=== PATIENT | female | born 2000 ===

== ENCOUNTER 2023-10-22 00:37 | Emergency (ER) | payer SELFPAY ==
--- OUTSIDE RECORDS SUMMARY | 2023-10-22 00:46 | XMS REPORT | Continuity of Care Document ---
:2000 Author Organization [facility] t Address [address] [place] [address] [place] [id number] Care Team Providers Name Role Phone Dionicio Alonzo Primary Care Physician Unavailable Татьяна Brumfield Attending Clinician [phone] Doctor Unassigned, [place] Attending Clinician Unavailable ANGEL LAMB Attending Clinician Unavailable Angel Scott Attending Clinician Nurse, [facility] Attending Clinician Unavailable Unknown, Attending Attending Clinician Unavailable Dick Diamond Attending Clinician DICK SIDHU Attending Clinician Unavailable Monica Willett Attending Clinician MONICA KRISHNAN Attending Clinician Unavailable Dionicio Alonzo Attending Clinician CHARU SERVIN Attending Clinician Unavailable Gary Leblanc Attending Clinician Charu Butler Attending Clinician DIONICIO CANO Attending Clinician Unavailable Lab, [facility] Attending Clinician Unavailable ТАТЬЯНА LEDESMA Attending Clinician Unavailable Pcp, Patient Does Not Have A Attending Clinician [phone] Haroon POWERS, Meredith Attending Clinician Wilbert Kapoor DO Attending Clinician Yair JACKSON, Karolina Gonzalez Attending Clinician Nelson JACKSON, Braydon Dailey Attending Clinician Rishi JACKSON, Dk Attending Clinician 3, [facility] Usg Room Attending Clinician Unavailable Jennifer Hayes MD Attending Clinician Agnes Lord MD Attending Clinician Gary Garcia MD Attending Clinician GARY GARCIA Attending Clinician Unavailable 1, [facility] Room Attending Clinician Unavailable Lorie Fay MD Attending Clinician Ultrasound, [facility] Attending Clinician Unavailable Chemo Cabrera MD, Marie Attending Clinician [phone] GARY GARCIA Admitting Clinician Unavailable DK AGUAYO Admitting Clinician Unavailable JENNIFER HAYES Admitting Clinician Unavailable ANGEL LAMB Admitting Clinician Unavailable Rishi JACKSON, Dk Admitting Clinician Braydon Damon MD Admitting Clinician Gary Garcia MD Admitting Clinician Payers Payer Name Policy Type Policy Number Effective Date Expiration Date Critical access hospital [id number] 2020 CHOICE MEDICAID 00:00:00 MEDICAID OF [place] [id number] 2020 00:00:00 MEDICAID PENDING PENDING 2020 00:00:00 Problems Condition Condition Condition Status Onset Resolution Last Treating Co mments Source Name Details Category Date Date Treatment Clinician Date Breast Breast Disease Active Univers feeding feeding 4-12 ity of status of status of 00:00: Elise toscano mother mother 00 Medical Branch Need for Need for Disease Active Unive rs HPV HPV 4-12 ity of vaccin[place] Hx of Hx of Disease Active Univers 4-02 ity of section section 00:00: [place] 00 Medical Branch Well woman Well woman Disease Active U nivers exam exam 3-22 ity of 00:00: [place] [facility] Disease Active U nivers depression depression 3-22 it y of 00:00: [place] 00 Medical Branch Anemia of Anemia of Disease Active Uni vers mother in mother in 3-22 ity of , , [place] 00 Me dical condition condition Bran ch 29 weeks 29 weeks Disease Active Unive rs gestation gestation 2-27 ity of of of 00:00: [place] 00 [facility] Vaginal Vaginal Disease Active Univers bleeding bleeding 2-23 ity of in in 00:00: [place] , , 00 Me dical third third Branch trimester trimester Labor and Labor and Disease Active Uni vers delivery, delivery, 2-12 ity of indication [place] 00:[place] care for care 00 [facility] l Branch Labor and Labor and Disease Active Uni vers delivery, delivery, 2-12 ity of indication [place] 00:[place] care 00 [facility] 26 weeks 26 weeks Disease Active Unive rs gestation gestation 2-11 ity of of of 00:00: [place] 00 [facility] Lab test Lab test Disease Active Unive rs positive positive 2-11 ity of for for 00:00: [place] detection detection 00 [facility] COVID-19 COVID-19 virus virus 28 weeks 28 weeks Disease Active Unive rs gestation gestation 2-11 ity of of of 00:00: [place] 00 [facility] Low-lying Low-lying Disease Active Uni vers placenta placenta 2-08 ity of 00:00: [place] 00 Medical Branch Overweight Overweight Disease Active U nivers (BMI (BMI 2-08 ity of 25.0-29.9) 25.0-29.9) 00:00: [place] 00 [place] Vaginal Vaginal Disease Active Univers bleeding bleeding 1-28 ity of 00:00: [place] 00 Medical Branch Nausea and Nausea and Disease Active 2020-1 U nivers vomiting vomiting 0-19 ity of during during 00:00: [place] 00 [facility] prior to prior to Branch 22 weeks 22 weeks gestation gestation Rh Rh Disease Active 2020-0 Overview: Univer s negative negative 08-16 Needs ity of state in state in 00:00: [facility] at [place] as antepartum antepartum 00 28wks and Medical period period PP Branch Maternal Maternal Disease Active 2020-0 Overview: Un americo varicella, varicella, 08-16 Address i ty of non-immune non-immune 00:00[place] [facility] Rubella Rubella Disease Active 2020-0 Overview: Univ ers non-immune non-immune 08-16 Address i ty of status, status, 00:00: in [place] antepartum antepartum 00 [facility] Supervisio Supervisio Disease Active 2020-0 U nivers n of high n of high 08-15 ity of risk risk 00:00: [place] 00 [facility] in second in second Bran ch trimester trimester Primigravi Primigravi Disease Active 2020-0 U nivers da in da in 08-15 ity of second second 00:00: [place] trimester trimester 00 [facility] Branch Vaginal Vaginal Disease Active 2020-0 Univers discharge discharge 9-21 ity of during during 00:00: [place] 00 [facility] in first in first Branch trimester trimester Yeast Yeast Disease Active 2020-0 Univers infection infection 9- ity of 00:00: [place] 00 Medical Branch History of History of Disease Active 2020-0 U nivers anxiety anxiety 9-21 ity of 00:00: [place] 00 Medical Branch History of History of Disease Active 2020-0 U nivers depression depression - it y of 00:00: [place] 00 Medical Branch Screening Screening Disease Active 2020-0 Uni vers for viral for viral - ity of disease disease 00:00: [place] [address] Medical Branch Allergies, Adverse Reactions, Alerts Allergy Allergy Status Severity Reaction(s) Onset Inactive Treating Comm ents Source Name Type Date Date Clinician SULFATE DRUG Active Swelling 2020-0 Univers ION INGREDI - ity of 00:00: [place] 00 Medical Branch Sulfate Propensi Active Swelling 2020-0 Swelling Uni vers Ion ty to 08-15 of tongue ity of adverse 00:00: [place] reaction 00 Medical Branch NO KNOWN Drug Active Univers ALLERGIE Class ity of S [facility] Social History Social Habit Start Date Stop Date Quantity Comments Source ASSERTION 2020-07-16 University of 00:00:00 [facility] Sexual orientation Univer sity of [facility] Exposure to 2023-03-22 2023-04-01 Not sure University SARS-CoV-2 (event) 00:00:00 16:15:00 [facility] Tobacco use and 2023-04-01 2023-04-01 Smokeless Universit y of exposure 00:00:00 00:00:00 tobacco non-user [facility] dical [place] Alcohol intake 2023-04-01 2023-04-01 Ex-drinker [facility] 00:00:00 00:00:00 (finding) [facility] Tobacco Comment 2023-04-01 2023-04-01 vaping Universit y of 00:00:00 00:00:00 [facility] History of Social 2021-01-21 2021-01-21 Univers ity of function 00:00:00 00:00:00 [place] [facility] History SDOH 2021-01-21 2021-01-21 5 University o f Financial 00:00:00 00:00:00 [place] [facility] History SDOH Food 2021-01-21 2021-01-21 1 Univers ity of Worry 00:00:00 00:00:00 [place] [facility] History SDOH Food 2021-01-21 2021-01-21 1 Univers ity of Scarcity 00:00:00 00:00:00 [place] [facility] History SDOH 2021-01-21 2021-01-21 2 University o f Transport Med 00:00:00 00:00:00 [place] Medic al Branch History SDOH 2021-01-21 2021-01-21 2 University o f Transport Non-Med 00:00:00 00:00:00 [facility] edical Branch History of tobacco 2020-07-25 Cigarette Smoker University of use 00:00:00 [facility] Sex Assigned At [birth year] Universit y of 00:00:00 00:00:00 [facility] Smoking Status Start Date Stop Date Source Unknown if ever smoked Universit y of [facility] Ex-smoker 2023-04-01 00:00:00 2023-04-01 00:00:00 Universi ty of [place] [facility] Medications Ordered Filled Start Stop Current Ordering Indication Dosage Frequency Signature Comments Components Source Medication Medication Date Date Medication? Clinician (SIG) Name Name iopamidol 2022- No [id number] 50mL 50 mL, U nivers (ISOVUE 04-0108 Intravenou ity o f 370-500 mL) 23:30: 22:37 s, ONCE, 1 [place] injection 00 :00 dose, On Medica l 50 mL [facility] 04/01/23 Branch at 1830, Routine NaCl 0.9% 2022- No 1000mL at 999 Uni vers (NS) bolus 04-01 mL/hr, ity of infusion 22:30: 00:54 1,000 mL, [place] 1,000 mL 00 :00 IV Medical Infusion, Branch ONCE, 1 dose, On [facility] 04/01/23 at 1730, JO dexamethaso 2022- No 10mg 10 mg, Uni vers ne sod phos 01-07 Intramuscu i ty of PF 21:45: 21:42 lar, ONCE, [place] injection 00 :00 1 dose, On Medi ruben 10 mg [facility] Branch 01/07/23 at 1545, 1 mL ketorolac 2022- No 30mg 30 mg, Unive rs (TORADOL) 01-07 Intramuscu ity of injection 21:45: 21:42 lar, ONCE, [place] 30 mg 00 :00 1 dose, On Medical [facility] 01/07/23 at 1545, Routine methocarbam 2022- No 1000mg 1,000 mg, Univers oL 01-07 Oral, ity of (ROBAXIN) 21:00: 21:42 ONCE, [place] tablet [place] :[place] dose, On Medical 1,000 mg [facility] Branch 01/07/23 at 1500, JO meloxicam 2022-0 2022- No [id number] 15mg Take 1 Univers (MOBIC) 15 01-07 tablet by ity of mg tablet 00:00: 05:59 mouth in [place] 00 :00 the Medical morning Branch for 10 days. meloxicam 2022-0 2022- No [id number] 15mg Take 1 Univers (MOBIC) 15 01-0724 tablet by ity of mg tablet 00:00: 05:59 mouth in [place] 00 :00 the Medical morning Branch for 10 days. methocarbam 2022- No [id number] 750mg Take 1 Univers oL 01-07 tablet by ity of (ROBAXIN-75 00:00: 05:59 mouth 4 [place] 0[place] 750 mg 00 :00 (four) Medical tablet times Branch daily for 7 days. methocarbam 2022-0 2022- No [id number] 750mg Take 1 Univers oL 01-07 tablet by ity of (ROBAXIN-75 00:00: 05:59 mouth 4 [place] 0[place] 750 mg 00 :00 (four) Medical tablet times Branch daily for 7 days. ondansetron 2020-11 Yes [id number] 4mg Take 1 Univers (ZOFRAN 0-25 tablet by ity of ODT) 4 mg 00:00: mouth [place] disintegrat 00 every 8 Medic al ing tablet (eight) Branch hours as needed for Nausea and Vomiting (N/V). ondansetron 2020-11 Yes [id number] 4mg Take 1 Univers (ZOFRAN 0-25 tablet by ity of ODT) 4 mg 00:00: mouth [place] disintegrat 00 every 8 Medic al ing tablet (eight) Branch hours as needed for Nausea and Vomiting (N/V). ondansetron 2020-11 Yes [id number] 4mg Take 1 Univers (ZOFRAN 0-25 tablet by ity of ODT) 4 mg 00:00: mouth [place] disintegrat 00 every 8 Medic al ing tablet (eight) Branch hours as needed for Nausea and Vomiting (N/V). ondansetron 2020-11 Yes [id number] 4mg Take 1 Univers (ZOFRAN 0-25 tablet by ity of ODT) 4 mg 00:00: mouth [place] disintegrat 00 every 8 Medic al ing tablet (eight) Branch hours as needed for Nausea and Vomiting (N/V). ondansetron 2020-11 Yes [id number] 4mg Take 1 Univers (ZOFRAN 0-25 tablet by ity of ODT) 4 mg 00:00: mouth [place] disintegrat 00 every 8 Medic al ing tablet (eight) Branch hours as needed for Nausea and Vomiting (N/V). ondansetron 2020-11 Yes [id number] 4mg Take 1 Univers (ZOFRAN 0-25 tablet by ity of ODT) 4 mg 00:00: mouth [place] disintegrat 00 every 8 Medic al ing tablet (eight) Branch hours as needed for Nausea and Vomiting (N/V). ondansetron 2020-11 Yes [id number] 4mg Take 1 Univers (ZOFRAN 0-25 tablet by ity of ODT) 4 mg 00:00: mouth [place] disintegrat 00 every 8 Medic al ing tablet (eight) Branch hours as needed for Nausea and Vomiting (N/V). ondansetron 2020-11 Yes [id number] 4mg Take 1 Univers (ZOFRAN 0-25 tablet by ity of ODT) 4 mg 00:00: mouth [place] disintegrat 00 every 8 Medic al ing tablet (eight) Branch hours as needed for Nausea and Vomiting (N/V). ondansetron 2020-11 Yes [id number] 4mg Take 1 Univers (ZOFRAN 0-25 tablet by ity of ODT) 4 mg 00:00: mouth [place] disintegrat 00 every 8 Medic al ing tablet (eight) Branch hours as needed for Nausea and Vomiting (N/V). cefdinir 2020-11- No [id number] 300mg Take 1 U nivers 300 mg 0-25 11-02 capsule by ity of capsule 00:00: 04:59 mouth 2 [place] 00 :00 (two) Medical times Branch daily for 7 days. phenazopyri 2020-11- No [id number] 200mg Take 1 Univers dine 200 mg 0-25 10-28 tablet by it y of tablet 00:00: 04:59 mouth 3 [place] 00 :00 (three) Medical times Branch daily for 2 days. mirtazapine Yes Univer s 15 mg 5-16 ity of tablet 00:00: [place] Medical [facility] mirtazapine 0 Yes Univer s 15 mg 5-16 ity of tablet 00:00: Medical Branch mirtazapine 0 Yes Univer s 15 mg 5-16 ity of tablet 00:00: Medical Branch mirtazapine 2020-0 Yes Univer s 15 mg 5-16 ity of tablet 00:00: Medical Branch mirtazapine 0 Yes Univer s 15 mg 5-16 ity of tablet 00:00: [place] 00 Medical Branch mirtazapine 2020-0 Yes Univer s 15 mg 5-16 ity of tablet 00:00: [place] 00 Medical Branch mirtazapine 2020-0 Yes Univer s 15 mg 5-16 ity of tablet 00:00: [place] 00 Medical Branch mirtazapine 2020-0 Yes Univer s 15 mg 5-16 ity of tablet 00:00: [place] 00 Medical Branch mirtazapine 2020-0 Yes Univer s 15 mg 5-16 ity of tablet 00:00: [place] 00 Medical Branch mirtazapine 2020-0 Yes Univer s 15 mg 5-16 ity of tablet 00:00: [place] 00 Medical Branch mirtazapine 2020-0 Yes Univer s 15 mg 5-16 ity of tablet 00:00: [place] 00 Medical Branch mirtazapine 2020-0 Yes Univer s 15 mg 5-16 ity of tablet 00:00: [place] 00 Medical Branch mirtazapine 2020-0 Yes Univer s 15 mg 5-16 ity of tablet 00:00: [place] 00 Medical Branch mirtazapine 2020-0 Yes Univer s 15 mg 5-16 ity of tablet 00:00: [place] 00 Medical Branch SERTraline 2020-0 Yes 25mg Take 25 mg U nivers 25 mg 5-11 by mouth ity of tablet 00:00: every [place] [address] morning. Medical Branch SERTraline 2020-0 Yes 25mg Take 25 mg U nivers 25 mg 5-11 by mouth ity of tablet 00:00: every [place] [address] morning. Medical Branch SERTraline 2020-0 Yes 25mg Take 25 mg U nivers 25 mg 5-11 by mouth ity of tablet 00:00: every [place] 00 morning. Medical Branch SERTraline 2020-0 Yes 25mg Take 25 mg U nivers 25 mg 5-11 by mouth ity of tablet 00:00: every [place] 00 morning. Medical Branch SERTraline 2020-0 Yes 25mg Take 25 mg U nivers 25 mg 5-11 by mouth ity of tablet 00:00: every [place] 00 morning. Medical Branch SERTraline 2020-0 Yes 25mg Take 25 mg U nivers 25 mg 5-11 by mouth ity of tablet 00:00: every [place] 00 morning. Medical Branch SERTraline 0 Yes 25mg Take 25 mg U nivers 25 mg 5-11 by mouth ity of tablet 00:00: every [place] 00 morning. Medical Branch SERTraline 0 Yes 25mg Take 25 mg U nivers 25 mg 5-11 by mouth ity of tablet 00:00: every [place] 00 morning. Medical Branch SERTraline 0 Yes 25mg Take 25 mg U nivers 25 mg 5-11 by mouth ity of tablet 00:00: every [place] 00 morning. Medical Branch SERTraline 0 Yes 25mg Take 25 mg U nivers 25 mg 5-11 by mouth ity of tablet 00:00: every [place] 00 morning. Medical Branch SERTraline 0 Yes 25mg Take 25 mg U nivers 25 mg 5-11 by mouth ity of tablet 00:00: every [place] morning. Medical Branch SERTraline Yes 25mg Take 25 mg U nivers 25 mg 5-11 by mouth ity of tablet 00:00: every [place] morning. Medical Branch SERTraline 0 Yes 25mg Take 25 mg U nivers 25 mg 5-11 by mouth ity of tablet 00:00: every [place] 00 morning. Medical Branch SERTraline 0 Yes 25mg Take 25 mg U nivers 25 mg 5-11 by mouth ity of tablet 00:00: every [place] morning. Medical Branch cephALEXin 2020- No [id number] 500mg Take 1 Univers (KEFLEX) 5-05 05-16 capsule by ity of 500 mg 00:00: 04:59 mouth 4 [place] capsule 00 :00 (four) Medical times [place] daily for 10 days. cephALEXin 2020- No [id number] 500mg Take 1 Univers (KEFLEX) 5-05 05-16 capsule by ity of 500 mg 00:00: 04:59 mouth 4 [place] capsule 00 :00 (four) Medical times [place] daily for 10 days. buPROPion Yes [id number] 150mg Take 1 U nivers SR 3-22 tablet by ity of (WELLBUTRIN 00:00: mouth [place] SR) 150 mg 00 daily. Medical SR tablet Branch Yes [id number] 1{packe Take 1 Univers vit 3-22 t} Packet by ity of 33-iron-fol 00:00: mouth [place] ic-dha 00 daily. Medical (SELECT-OB Branch + DHA) 29 mg iron-1 mg -250 mg combo pack buPROPion Yes [id number] 150mg Take 1 U nivers SR 3-22 tablet by ity of (WELLBUTRIN 00:00: mouth [place] SR) 150 mg 00 daily. Medical SR tablet Branch Yes [id number] 1{packe Take 1 Univers vit 3-22 t} Packet by ity of 33-iron-fol 00:00: mouth [place] ic-dha 00 daily. Medical (SELECT-OB Branch + DHA) 29 mg iron-1 mg -250 mg combo pack buPROPion Yes [id number] 150mg Take 1 U nivers SR 3-22 tablet by ity of (WELLBUTRIN 00:00: mouth [place] SR) 150 mg 00 daily. Medical SR tablet Branch Yes [id number] 1{packe Take 1 Univers vit 3-22 t} Packet by ity of 33-iron-fol 00:00: mouth [place] ic-dha 00 daily. Medical (SELECT-OB Branch + DHA) 29 mg iron-1 mg -250 mg combo pack buPROPion Yes [id number] 150mg Take 1 U nivers SR 3-22 tablet by ity of (WELLBUTRIN 00:00: mouth [place] SR) 150 mg 00 daily. Medical SR tablet Branch Yes [id number] 1{packe Take 1 Univers vit 3-22 t} Packet by ity of 33-iron-fol 00:00: mouth [place] ic-dha 00 daily. Medical (SELECT-OB Branch + DHA) 29 mg iron-1 mg -250 mg combo pack buPROPion Yes [id number] 150mg Take 1 U nivers SR 3-22 tablet by ity of (WELLBUTRIN 00:00: mouth [place] SR) 150 mg 00 daily. Medical SR tablet Branch Yes [id number] 1{packe Take 1 Univers vit 3-22 t} Packet by ity of 33-iron-fol 00:00: mouth [place] ic-dha 00 daily. Medical (SELECT-OB Branch + DHA) 29 mg iron-1 mg -250 mg combo pack buPROPion Yes [id number] 150mg Take 1 U nivers SR 3-22 tablet by ity of (WELLBUTRIN 00:00: mouth [place] SR) 150 mg 00 daily. Medical SR tablet Branch Yes [id number] 1{packe Take 1 Univers vit 3-22 t} Packet by ity of 33-iron-fol 00:00: mouth [place] ic-dha 00 daily. Medical (SELECT-OB Branch + DHA) 29 mg iron-1 mg -250 mg combo pack buPROPion Yes [id number] 150mg Take 1 U nivers SR 3-22 tablet by ity of (WELLBUTRIN 00:00: mouth [place] SR) 150 mg 00 daily. Medical SR tablet Branch Yes [id number] 1{packe Take 1 Univers vit 3-22 t} Packet by ity of 33-iron-fol 00:00: mouth [place] ic-dha 00 daily. Medical (SELECT-OB Branch + DHA) 29 mg iron-1 mg -250 mg combo pack buPROPion Yes [id number] 150mg Take 1 U nivers SR 3-22 tablet by ity of (WELLBUTRIN 00:00: mouth [place] SR) 150 mg 00 daily. Medical SR tablet Branch Yes [id number] 1{packe Take 1 Univers vit 3-22 t} Packet by ity of 33-iron-fol 00:00: mouth [place] ic-dha 00 daily. Medical (SELECT-OB Branch + DHA) 29 mg iron-1 mg -250 mg combo pack buPROPion Yes [id number] 150mg Take 1 U nivers SR 3-22 tablet by ity of (WELLBUTRIN 00:00: mouth [place] SR) 150 mg 00 daily. Medical SR tablet Branch Yes [id number] 1{packe Take 1 Univers vit 3-22 t} Packet by ity of 33-iron-fol 00:00: mouth [place] ic-dha 00 daily. Medical (SELECT-OB Branch + DHA) 29 mg iron-1 mg -250 mg combo pack buPROPion Yes [id number] 150mg Take 1 U nivers SR 3-22 tablet by ity of (WELLBUTRIN 00:00: mouth [place] SR) 150 mg 00 daily. Medical SR tablet Branch Yes [id number] 1{packe Take 1 Univers vit 3-22 t} Packet by ity of 33-iron-fol 00:00: mouth [place] ic-dha 00 daily. Medical (SELECT-OB Branch + DHA) 29 mg iron-1 mg -250 mg combo pack buPROPion Yes [id number] 150mg Take 1 U nivers SR 3-22 tablet by ity of (WELLBUTRIN 00:00: mouth [place] SR) 150 mg 00 daily. Medical SR tablet Branch Yes [id number] 1{packe Take 1 Univers vit 3-22 t} Packet by ity of 33-iron-fol 00:00: mouth [place] ic-dha 00 daily. Medical (SELECT-OB Branch + DHA) 29 mg iron-1 mg -250 mg combo pack buPROPion Yes [id number] 150mg Take 1 U nivers SR 3-22 tablet by ity of (WELLBUTRIN 00:00: mouth [place] SR) 150 mg 00 daily. Medical SR tablet Branch Yes [id number] 1{packe Take 1 Univers vit 3-22 t} Packet by ity of 33-iron-fol 00:00: mouth [place] ic-dha 00 daily. Medical (SELECT-OB Branch + DHA) 29 mg iron-1 mg -250 mg combo pack buPROPion Yes [id number] 150mg Take 1 U nivers SR 3-22 tablet by ity of (WELLBUTRIN 00:00: mouth [place] SR) 150 mg 00 daily. Medical SR tablet Branch Yes [id number] 1{packe Take 1 Univers vit 3-22 t} Packet by ity of 33-iron-fol 00:00: mouth [place] ic-dha 00 daily. Medical (SELECT-OB Branch + DHA) 29 mg iron-1 mg -250 mg combo pack buPROPion Yes [id number] 150mg Take 1 U nivers SR 3-22 tablet by ity of (WELLBUTRIN 00:00: mouth [place] SR) 150 mg 00 daily. Medical SR tablet Branch Yes [id number] 1{packe Take 1 Univers vit 3-22 t} Packet by ity of 33-iron-fol 00:00: mouth [place] ic-dha 00 daily. Medical (SELECT-OB Branch + DHA) 29 mg iron-1 mg -250 mg combo pack buPROPion Yes [id number] 150mg Take 1 U nivers SR 3-22 tablet by ity of (WELLBUTRIN 00:00: mouth [place] SR) 150 mg 00 daily. Medical SR tablet Branch Yes [id number] 1{packe Take 1 Univers vit 3-22 t} Packet by ity of 33-iron-fol 00:00: mouth [place] ic-dha 00 daily. Medical (SELECT-OB Branch + DHA) 29 mg iron-1 mg -250 mg combo pack buPROPion Yes [id number] 150mg Take 1 U nivers SR 3-22 tablet by ity of (WELLBUTRIN 00:00: mouth [place] SR) 150 mg 00 daily. Medical SR tablet Branch Yes [id number] 1{packe Take 1 Univers vit 3-22 t} Packet by ity of 33-iron-fol 00:00: mouth [place] ic-dha 00 daily. Medical (SELECT-OB Branch + DHA) 29 mg iron-1 mg -250 mg combo pack buPROPion Yes [id number] 150mg Take 1 U nivers SR 3-22 tablet by ity of (WELLBUTRIN 00:00: mouth [place] SR) 150 mg 00 daily. Medical SR tablet Branch Yes [id number] 1{packe Take 1 Univers vit 3-22 t} Packet by ity of 33-iron-fol 00:00: mouth [place] ic-dha 00 daily. Medical (SELECT-OB Branch + DHA) 29 mg iron-1 mg -250 mg combo pack buPROPion Yes [id number] 150mg Take 1 U nivers SR 3-22 tablet by ity of (WELLBUTRIN 00:00: mouth [place] SR) 150 mg 00 daily. Medical SR tablet Branch Yes [id number] 1{packe Take 1 Univers vit 3-22 t} Packet by ity of 33-iron-fol 00:00: mouth [place] ic-dha 00 daily. Medical (SELECT-OB Branch + DHA) 29 mg iron-1 mg -250 mg combo pack buPROPion Yes [id number] 150mg Take 1 U nivers SR 3-22 tablet by ity of (WELLBUTRIN 00:00: mouth [place] SR) 150 mg 00 daily. Medical SR tablet Branch Yes [id number] 1{packe Take 1 Univers vit 3-22 t} Packet by ity of 33-iron-fol 00:00: mouth [place] ic-dha 00 daily. Medical (SELECT-OB Branch + DHA) 29 mg iron-1 mg -250 mg combo pack buPROPion Yes [id number] 150mg Take 1 U nivers SR 3-22 tablet by ity of (WELLBUTRIN 00:00: mouth [place] SR) 150 mg 00 daily. Medical SR tablet Branch Yes [id number] 1{packe Take 1 Univers vit 3-22 t} Packet by ity of 33-iron-fol 00:00: mouth [place] ic-dha 00 daily. Medical (SELECT-OB Branch + DHA) 29 mg iron-1 mg -250 mg combo pack buPROPion Yes [id number] 150mg Take 1 U nivers SR 3-22 tablet by ity of (WELLBUTRIN 00:00: mouth [place] SR) 150 mg 00 daily. Medical SR tablet Branch Yes [id number] 1{packe Take 1 Univers vit 3-22 t} Packet by ity of 33-iron-fol 00:00: mouth [place] ic-dha 00 daily. Medical (SELECT-OB Branch + DHA) 29 mg iron-1 mg -250 mg combo pack buPROPion Yes [id number] 150mg Take 1 U nivers SR 3-22 tablet by ity of (WELLBUTRIN 00:00: mouth [place] SR) 150 mg 00 daily. Medical SR tablet Branch Yes [id number] 1{packe Take 1 Univers vit 3-22 t} Packet by ity of 33-iron-fol 00:00: mouth [place] ic-dha 00 daily. Medical (SELECT-OB Branch + DHA) 29 mg iron-1 mg -250 mg combo pack buPROPion Yes [id number] 150mg Take 1 U nivers SR 3-22 tablet by ity of (WELLBUTRIN 00:00: mouth [place] SR) 150 mg 00 daily. Medical SR tablet Branch Yes [id number] 1{packe Take 1 Univers vit 3-22 t} Packet by ity of 33-iron-fol 00:00: mouth [place] ic-dha 00 daily. Medical ([facility] + DHA) 29 mg iron-1 mg -250 mg combo pack buPROPion Yes [id number] 150mg Take 1 [facility] n[facility] SR 3-22 tablet by ity of (WELLBUTRIN 00:00: mouth [place] SR) 150 mg 00 daily. Medical SR tablet Branch Yes [id number] 1{packe Take 1 [facility] vit 3-22 t} Packet by ity of 33-iron-fol 00:00: mouth [place] ic-dha 00 daily. Medical ([facility] + DHA) 29 mg iron-1 mg -250 mg combo pack buPROPion Yes [id number] 150mg Take 1 [facility] nivers SR 3-22 tablet by ity of (WELLBUTRIN 00:00: mouth [place] SR) 150 mg 00 daily. Medical SR tablet Branch Yes [id number] 1{packe Take 1 [facility] vit 3-22 t} Packet by [facility]y of 33-iron-fol 00:00: mouth [place] ic-dha 00 daily. Medical ([facility] + DHA) 29 mg iron-1 mg -250 mg combo pack buPROPion Yes [id number] 150mg Take 1 [facility] nivers SR 3-22 tablet by ity of (WELLBUTRIN 00:00: mouth [place] SR) 150 mg 00 daily. Medical SR tablet Branch Yes [id number] 1{packe Take 1 [facility] vit 3-22 t} Packet by [facility]y of 33-iron-fol 00:00: mouth [place] ic-dha 00 daily. Medical ([facility] + DHA) 29 mg iron-1 mg -250 mg combo pack buPROPion Yes [id number] 150mg Take 1 [facility] nivers SR 3-22 tablet by ity of (WELLBUTRIN 00:00: mouth [place] SR) 150 mg 00 daily. Medical SR tablet Branch Yes [id number] 1{packe Take 1 [facility] vit 3-22 t} Packet by [facility]y of 33-iron-fol 00:00: mouth [place] ic-dha 00 daily. Medical ([facility] + DHA) 29 mg iron-1 mg -250 mg combo pack buPROPion Yes [id number] 150mg Take 1 [facility] nivers SR 3-22 tablet by ity of (WELLBUTRIN 00:00: mouth [place] SR) 150 mg 00 daily. Medical SR tablet Branch Yes [id number] 1{packe Take 1 [facility] vit 3-22 t} Packet by [facility] of 33-iron-fol 00:00: mouth [place] ic-dha 00 daily. Medical ([facility] + DHA) 29 mg iron-1 mg -250 mg combo pack buPROPion Yes [id number] 150mg Take 1 [facility] nivers SR 3-22 tablet by ity of (WELLBUTRIN 00:00: mouth [place] SR) 150 mg 00 daily. Medical SR tablet Branch Yes [id number] 1{packe Take 1 [facility] vit 3-22 t} Packet by [facility]y of 33-iron-fol 00:00: mouth [place] ic-dha 00 daily. Medical ([facility] + D[facility]) 29 mg iron-1 mg -250 mg combo pack buPROPion Yes [id number] 150mg Take 1 [facility] nivers SR 3-22 tablet by ity of (WELLBUTRIN 00:00: mouth [place] SR) 150 mg 00 daily. Medical SR tablet Branch Yes [id number] 1{packe Take 1 [facility] vit 3-22 t} Packet by [facility] of 33-iron-fol 00:00: mouth [place] ic-dha 00 daily. Medical ([facility] + D[facility]) 29 mg iron-1 mg -250 mg combo pack iohexol 2020- No [id number] 120mL 120 mL, [facility] (OMNIPAQUE 02-02 Intravenou it y of 350 15:35: 15:35 s, ONCE, 1 [place] BULK-150 00 :00 dose, [facility]) 02/02/21 at Branch injection 0945, 120 mL Routine cephALEXin 2020- No [id number] 500mg Take 1 [facility] (KEFLEX) 02-02 capsule by ity of 500 mg 00:00: 04:59 mouth 3 [place] capsule 00 :00 (three) Medical times Branch daily for 7 days. Yes [id number] 1{packe Take 1 [facility] vit 3-04 t} Packet by [facility]y of 33-iron-fol 00:00: mouth [place] ic-dha 00 daily. Medical ([facility] + D[facility]) 29 mg iron-1 mg -250 mg combo pack Yes [id number] 1{packe Take 1 [facility] vit 3-04 t} Packet by ity of 33-iron-fol 00:00: mouth [place] ic-dha 00 daily. Medical ([facility] + D[facility]) 29 mg iron-1 mg -250 mg combo pack Yes [id number] 1{packe Take 1 [facility] vit 3-04 t} Packet by [facility]y of 33-iron-fol 00:00: mouth [place] ic-dha 00 daily. Medical ([facility] + DHA) 29 mg iron-1 mg -250 mg combo pack Yes [id number] 1{packe Take 1 [facility] vit 3-04 t} Packet by [facility]y of 33-iron-fol 00:00: mouth [place] ic-dha 00 daily. Medical ([facility] + DHA) 29 mg iron-1 mg -250 mg combo pack 2020- No [id number] 1{packe Take 1 [facility] vit 3-04 03-22 t} Packet by [facility] of 33-iron-fol 00:00: 00:00 mouth [place] ic-dha 00 :00 daily. Medical ([facility] + DHA) 29 mg iron-1 mg -250 mg combo pack acyclovir 2020- No [id number] 400mg Take 1 [facility] nivers 400 mg 3- 03-12 tablet by ity of tablet 00:00: 05:59 mouth 3 [place] 00 :00 (three) Medical times Branch daily for 7 days. acyclovir 2020- No [id number] 400mg Take 1 [facility] nivers 400 mg 3-04 03-12 tablet by ity of tablet 00:00: 05:59 mouth 3 [place] 00 :00 (three) Medical times Branch daily for 7 days. acyclovir 2020- No [id number] 400mg Take 1 [facility] nivers 400 mg 3-04 -12 tablet by ity of tablet 00:00: 05:59 mouth 3 [place] 00 :00 (three) Medical times Branch daily for 7 days. acyclovir 2020- No [id number] 400mg Take 1 [facility] nivers 400 mg 3-04 03-12 tablet by ity of tablet 00:00: 05:59 mouth 3 [place] 00 :00 (three) Medical times Branch daily for 7 days. docusate Yes [id number] 240mg Take 1 [facility] nivers calcium 240 3-01 capsule by it y of mg capsule 00:00: mouth once [place] 00 daily as Medical needed for Branch Constipati on. ferrous Yes [id number] 325mg Take 1 Un americo sulfate 325 3-01 tablet by ity of mg (65 mg 00:00: mouth 2 [place] iron) 00 (two) Medical tablet times Branch daily. ibuprofen Yes [id number] 600mg Take 1 [facility] 600 mg 3-01 tablet by ity of tablet 00:00: mouth [place] 00 every 6 Medical (six) Branch hours as needed (Pain). Take with food or milk. norethindro Yes [id number] .35mg Take 1 [facility] ne 0.35 mg 3-01 tablet by ity of tablet 00:00: mouth [place] 00 daily. Medical Branch Yes [id number] 1{tbl} Take 1 [facility] vitamin 3-01 tablet by [facility]y of w/FA tablet 00:00: mouth [place] 00 daily. Medical Branch docusate Yes [id number] 240mg Take 1 [facility] nivers calcium 240 3-01 capsule by it y of mg capsule 00:00: mouth once [place] 00 daily as Medical needed for Branch Constipati on. ferrous Yes [id number] 325mg Take 1 Un americo sulfate 325 3-01 tablet by ity of mg (65 mg 00:00: mouth 2 [place] iron) 00 (two) Medical tablet times Branch daily. ibuprofen Yes [id number] 600mg Take 1 [facility] 600 mg 3-01 tablet by ity of tablet 00:00: mouth [place] 00 every 6 Medical (six) Branch hours as needed (Pain). Take with food or milk. norethindro Yes [id number] .35mg Take 1 [facility] ne 0.35 mg 3-01 tablet by ity of tablet 00:00: mouth [place] 00 daily. Medical Branch Yes [id number] 1{tbl} Take 1 [facility] vitamin 3-01 tablet by [facility]y of w/FA tablet 00:00: mouth [place] 00 daily. Medical Branch docusate Yes [id number] 240mg Take 1 [facility] nivers calcium 240 3-01 capsule by it y of mg capsule 00:00: mouth once [place] 00 daily as Medical needed for Branch Constipati on. ferrous Yes [id number] 325mg Take 1 Un americo sulfate 325 3-01 tablet by ity of mg (65 mg 00:00: mouth 2 [place] iron) 00 (two) Medical tablet times Branch daily. ibuprofen Yes [id number] 600mg Take 1 [facility] 600 mg 3-01 tablet by ity of tablet 00:00: mouth [place] 00 every 6 Medical (six) Branch hours as needed (Pain). Take with food or milk. norethindro Yes [id number] .35mg Take 1 [facility] ne 0.35 mg 3-01 tablet by ity of tablet 00:00: mouth [place] 00 daily. Medical Branch Yes [id number] 1{tbl} Take 1 [facility] vitamin 3-01 tablet by [facility]y of w/FA tablet 00:00: mouth [place] 00 daily. Medical Branch docusate Yes [id number] 240mg Take 1 [facility] nivers calcium 240 3-01 capsule by it y of mg capsule 00:00: mouth once [place] 00 daily as Medical needed for Branch Constipati on. ferrous Yes [id number] 325mg Take 1 Un americo sulfate 325 3-01 tablet by ity of mg (65 mg 00:00: mouth 2 [place] iron) 00 (two) Medical tablet times Branch daily. ibuprofen Yes [id number] 600mg Take 1 [facility] 600 mg 3-01 tablet by ity of tablet 00:00: mouth [place] 00 every 6 Medical (six) Branch hours as needed (Pain). Take with food or milk. norethindro Yes [id number] .35mg Take 1 [facility] ne 0.35 mg 3-01 tablet by ity of tablet 00:00: mouth [place] 00 daily. Medical Branch Yes [id number] 1{tbl} Take 1 [facility] vitamin 3-01 tablet by ity of w/FA tablet 00:00: mouth [place] 00 daily. Medical Branch docusate Yes [id number] 240mg Take 1 [facility] nivers calcium 240 3-01 capsule by it y of mg capsule 00:00: mouth once [place] 00 daily as Medical needed for Branch Constipati on. ferrous Yes [id number] 325mg Take 1 Un americo sulfate 325 3-01 tablet by ity of mg (65 mg 00:00: mouth 2 [place] iron) 00 (two) Medical tablet times Branch daily. ibuprofen Yes [id number] 600mg Take 1 [facility] 600 mg 3-01 tablet by ity of tablet 00:00: mouth [place] 00 every 6 Medical (six) Branch hours as needed (Pain). Take with food or milk. norethindro Yes [id number] .35mg Take 1 [facility] ne 0.35 mg 3-01 tablet by ity of tablet 00:00: mouth [place] 00 daily. Medical Branch Yes [id number] 1{tbl} Take 1 [facility] vitamin 3-01 tablet by ity of w/FA tablet 00:00: mouth [place] 00 daily. Medical Branch docusate Yes [id number] 240mg Take 1 [facility] nivers calcium 240 3-01 capsule by it y of mg capsule 00:00: mouth once [place] 00 daily as Medical needed for Branch Constipati on. ferrous Yes [id number] 325mg Take 1 Un americo sulfate 325 3-01 tablet by ity of mg (65 mg 00:00: mouth 2 [place] iron) 00 (two) Medical tablet times Branch daily. ibuprofen Yes [id number] 600mg Take 1 [facility] 600 mg 3-01 tablet by ity of tablet 00:00: mouth [place] 00 every 6 Medical (six) Branch hours as needed (Pain). Take with food or milk. norethindro Yes [id number] .35mg Take 1 [facility] ne 0.35 mg 3-01 tablet by ity of tablet 00:00: mouth [place] 00 daily. Medical Branch Yes [id number] 1{tbl} Take 1 [facility] vitamin 3-01 tablet by ity of w/FA tablet 00:00: mouth [place] 00 daily. Medical Branch docusate Yes [id number] 240mg Take 1 [facility] nivers calcium 240 3-01 capsule by it y of mg capsule 00:00: mouth once [place] 00 daily as Medical needed for Branch Constipati on. ferrous Yes [id number] 325mg Take 1 Un americo sulfate 325 3-01 tablet by ity of mg (65 mg 00:00: mouth 2 [place] iron) 00 (two) Medical tablet times Branch daily. ibuprofen Yes [id number] 600mg Take 1 [facility] 600 mg 3-01 tablet by ity of tablet 00:00: mouth [place] 00 every 6 Medical (six) Branch hours as needed (Pain). Take with food or milk. norethindro Yes [id number] .35mg Take 1 [facility] ne 0.35 mg 3-01 tablet by ity of tablet 00:00: mouth [place] 00 daily. Medical Branch Yes [id number] 1{tbl} Take 1 [facility] vitamin 3-01 tablet by ity of w/FA tablet 00:00: mouth [place] 00 daily. Medical Branch docusate Yes [id number] 240mg Take 1 [facility] nivers calcium 240 3-01 capsule by it y of mg capsule 00:00: mouth once [place] 00 daily as Medical needed for Branch Constipati on. ferrous Yes [id number] 325mg Take 1 Un americo sulfate 325 3-01 tablet by ity of mg (65 mg 00:00: mouth 2 [place] iron) 00 (two) Medical tablet times Branch daily. ibuprofen Yes [id number] 600mg Take 1 [facility] 600 mg 3-01 tablet by ity of tablet 00:00: mouth [place] 00 every 6 Medical (six) Branch hours as needed (Pain). Take with food or milk. norethindro Yes [id number] .35mg Take 1 [facility] ne 0.35 mg 3-01 tablet by ity of tablet 00:00: mouth [place] 00 daily. Medical Branch Yes [id number] 1{tbl} Take 1 [facility] vitamin 3-01 tablet by ity of w/FA tablet 00:00: mouth [place] 00 daily. Medical Branch docusate Yes [id number] 240mg Take 1 [facility] nivers calcium 240 3-01 capsule by it y of mg capsule 00:00: mouth once [place] 00 daily as Medical needed for Branch Constipati on. ferrous Yes [id number] 325mg Take 1 Un americo sulfate 325 3-01 tablet by ity of mg (65 mg 00:00: mouth 2 [place] iron) 00 (two) Medical tablet times Branch daily. ibuprofen Yes [id number] 600mg Take 1 [facility] 600 mg 3-01 tablet by ity of tablet 00:00: mouth [place] 00 every 6 Medical (six) Branch hours as needed (Pain). Take with food or milk. norethindro Yes [id number] .35mg Take 1 [facility] ne 0.35 mg 3-01 tablet by ity of tablet 00:00: mouth [place] 00 daily. Medical Branch Yes [id number] 1{tbl} Take 1 [facility] vitamin 3-01 tablet by ity of w/FA tablet 00:00: mouth [place] 00 daily. Medical Branch docusate Yes [id number] 240mg Take 1 [facility] nivers calcium 240 3-01 capsule by it y of mg capsule 00:00: mouth once [place] 00 daily as Medical needed for Branch Constipati on. ferrous Yes [id number] 325mg Take 1 Un americo sulfate 325 3-01 tablet by ity of mg (65 mg 00:00: mouth 2 [place] iron) 00 (two) Medical tablet times Branch daily. ibuprofen Yes [id number] 600mg Take 1 [facility] 600 mg 3-01 tablet by ity of tablet 00:00: mouth [place] 00 every 6 Medical (six) Branch hours as needed (Pain). Take with food or milk. norethindro Yes [id number] .35mg Take 1 [facility] ne 0.35 mg 3-01 tablet by ity of tablet 00:00: mouth [place] 00 daily. Medical Branch Yes [id number] 1{tbl} Take 1 [facility] vitamin 3-01 tablet by ity of w/FA tablet 00:00: mouth [place] 00 daily. Medical Branch docusate Yes [id number] 240mg Take 1 [facility] nivers calcium 240 3-01 capsule by it y of mg capsule 00:00: mouth once [place] 00 daily as Medical needed for Branch Constipati on. ferrous Yes [id number] 325mg Take 1 Un americo sulfate 325 3-01 tablet by ity of mg (65 mg 00:00: mouth 2 [place] iron) 00 (two) Medical tablet times Branch daily. ibuprofen Yes [id number] 600mg Take 1 [facility] 600 mg 3-01 tablet by ity of tablet 00:00: mouth [place] 00 every 6 Medical (six) Branch hours as needed (Pain). Take with food or milk. norethindro Yes [id number] .35mg Take 1 [facility] ne 0.35 mg 3-01 tablet by ity of tablet 00:00: mouth [place] 00 daily. Medical Branch Yes [id number] 1{tbl} Take 1 [facility] vitamin 3-01 tablet by ity of w/FA tablet 00:00: mouth [place] 00 daily. Medical Branch docusate Yes [id number] 240mg Take 1 U nivers calcium 240 3-01 capsule by it y of mg capsule 00:00: mouth once [place] 00 daily as Medical needed for Branch Constipati on. ferrous Yes [id number] 325mg Take 1 Un americo sulfate 325 3-01 tablet by ity of mg (65 mg 00:00: mouth 2 [place] iron) 00 (two) Medical tablet times Branch daily. ibuprofen Yes [id number] 600mg Take 1 [facility] 600 mg 3-01 tablet by ity of tablet 00:00: mouth [place] 00 every 6 Medical (six) Branch hours as needed (Pain). Take with food or milk. norethindro Yes [id number] .35mg Take 1 [facility] ne 0.35 mg 3-01 tablet by ity of tablet 00:00: mouth [place] 00 daily. Medical Branch Yes [id number] 1{tbl} Take 1 [facility] vitamin 3-01 tablet by ity of w/FA tablet 00:00: mouth [place] 00 daily. Medical Branch docusate Yes [id number] 240mg Take 1 U nivers calcium 240 3-01 capsule by it y of mg capsule 00:00: mouth once [place] 00 daily as Medical needed for Branch Constipati on. ferrous Yes [id number] 325mg Take 1 Un americo sulfate 325 3-01 tablet by ity of mg (65 mg 00:00: mouth 2 [place] iron) 00 (two) Medical tablet times Branch daily. ibuprofen Yes [id number] 600mg Take 1 [facility] 600 mg 3-01 tablet by ity of tablet 00:00: mouth [place] 00 every 6 Medical (six) Branch hours as needed (Pain). Take with food or milk. norethindro Yes [id number] .35mg Take 1 [facility] ne 0.35 mg 3-01 tablet by ity of tablet 00:00: mouth [place] 00 daily. Medical Branch Yes [id number] 1{tbl} Take 1 [facility] vitamin 3-01 tablet by ity of w/FA tablet 00:00: mouth [place] 00 daily. Medical Branch docusate Yes [id number] 240mg Take 1 [facility] nivers calcium 240 3-01 capsule by it y of mg capsule 00:00: mouth once [place] 00 daily as Medical needed for Branch Constipati on. ferrous Yes [id number] 325mg Take 1 Un americo sulfate 325 3-01 tablet by ity of mg (65 mg 00:00: mouth 2 [place] iron) 00 (two) Medical tablet times Branch daily. ibuprofen Yes [id number] 600mg Take 1 [facility] 600 mg 3-01 tablet by ity of tablet 00:00: mouth [place] 00 every 6 Medical (six) Branch hours as needed (Pain). Take with food or milk. norethindro Yes [id number] .35mg Take 1 [facility] ne 0.35 mg 3-01 tablet by ity of tablet 00:00: mouth [place] 00 daily. Medical Branch Yes [id number] 1{tbl} Take 1 [facility] vitamin 3-01 tablet by ity of w/FA tablet 00:00: mouth [place] 00 daily. Medical Branch docusate Yes [id number] 240mg Take 1 [facility] nivers calcium 240 3-01 capsule by it y of mg capsule 00:00: mouth once [place] 00 daily as Medical needed for Branch Constipati on. ferrous Yes [id number] 325mg Take 1 Un americo sulfate 325 3-01 tablet by ity of mg (65 mg 00:00: mouth 2 [place] iron) 00 (two) Medical tablet times Branch daily. ibuprofen Yes [id number] 600mg Take 1 [facility] 600 mg 3-01 tablet by ity of tablet 00:00: mouth [place] 00 every 6 Medical (six) Branch hours as needed (Pain). Take with food or milk. norethindro Yes [id number] .35mg Take 1 [facility] ne 0.35 mg 3-01 tablet by ity of tablet 00:00: mouth [place] 00 daily. Medical Branch Yes [id number] 1{tbl} Take 1 [facility] vitamin 3-01 tablet by ity of w/FA tablet 00:00: mouth [place] 00 daily. Medical Branch docusate Yes [id number] 240mg Take 1 [facility] nivers calcium 240 3-01 capsule by it y of mg capsule 00:00: mouth once [place] 00 daily as Medical needed for Branch Constipati on. ferrous Yes [id number] 325mg Take 1 Un americo sulfate 325 3-01 tablet by ity of mg (65 mg 00:00: mouth 2 [place] iron) 00 (two) Medical tablet times Branch daily. ibuprofen Yes [id number] 600mg Take 1 [facility] 600 mg 3-01 tablet by ity of tablet 00:00: mouth [place] 00 every 6 Medical (six) Branch hours as needed (Pain). Take with food or milk. norethindro Yes [id number] .35mg Take 1 [facility] ne 0.35 mg 3-01 tablet by ity of tablet 00:00: mouth [place] 00 daily. Medical Branch Yes [id number] 1{tbl} Take 1 [facility] vitamin 3-01 tablet by ity of w/FA tablet 00:00: mouth [place] 00 daily. Medical Branch docusate Yes [id number] 240mg Take 1 [facility] nivers calcium 240 3-01 capsule by it y of mg capsule 00:00: mouth once [place] 00 daily as Medical needed for Branch Constipati on. ferrous 2021-0 Yes [id number] 325mg Take 1 Un americo sulfate 325 3-01 tablet by ity of mg (65 mg 00:00: mouth 2 [place] iron) 00 (two) Medical tablet times Branch daily. ibuprofen Yes [id number] 600mg Take 1 [facility] 600 mg 3-01 tablet by ity of tablet 00:00: mouth [place] 00 every 6 Medical (six) Branch hours as needed (Pain). Take with food or milk. norethindro Yes [id number] .35mg Take 1 [facility] ne 0.35 mg 3-01 tablet by ity of tablet 00:00: mouth [place] 00 daily. Medical Branch Yes [id number] 1{tbl} Take 1 [facility] vitamin 3-01 tablet by ity of w/FA tablet 00:00: mouth [place] 00 daily. Medical Branch docusate Yes [id number] 240mg Take 1 [facility] nivers calcium 240 3-01 capsule by it y of mg capsule 00:00: mouth once [place] 00 daily as Medical needed for Branch Constipati on. ferrous Yes [id number] 325mg Take 1 Un americo sulfate 325 3-01 tablet by ity of mg (65 mg 00:00: mouth 2 [place] iron) 00 (two) Medical tablet times Branch daily. ibuprofen Yes [id number] 600mg Take 1 [facility] 600 mg 3-01 tablet by ity of tablet 00:00: mouth [place] 00 every 6 Medical (six) Branch hours as needed (Pain). Take with food or milk. norethindro Yes [id number] .35mg Take 1 [facility] ne 0.35 mg 3-01 tablet by ity of tablet 00:00: mouth [place] 00 daily. Medical Branch Yes [id number] 1{tbl} Take 1 [facility] vitamin 3-01 tablet by ity of w/FA tablet 00:00: mouth [place] 00 daily. Medical Branch docusate Yes [id number] 240mg Take 1 [facility] nivers calcium 240 3-01 capsule by it y of mg capsule 00:00: mouth once [place] 00 daily as Medical needed for Branch Constipati on. ferrous Yes [id number] 325mg Take 1 Un americo sulfate 325 3-01 tablet by ity of mg (65 mg 00:00: mouth 2 [place] iron) 00 (two) Medical tablet times Branch daily. ibuprofen Yes [id number] 600mg Take 1 [facility] 600 mg 3-01 tablet by ity of tablet 00:00: mouth [place] 00 every 6 Medical (six) Branch hours as needed (Pain). Take with food or milk. norethindro Yes [id number] .35mg Take 1 [facility] ne 0.35 mg 3-01 tablet by ity of tablet 00:00: mouth [place] 00 daily. Medical Branch Yes [id number] 1{tbl} Take 1 [facility] vitamin 3-01 tablet by ity of w/FA tablet 00:00: mouth [place] 00 daily. Medical Branch docusate Yes [id number] 240mg Take 1 [facility] nivers calcium 240 3-01 capsule by it y of mg capsule 00:00: mouth once [place] 00 daily as Medical needed for Branch Constipati on. ferrous Yes [id number] 325mg Take 1 Un americo sulfate 325 3-01 tablet by ity of mg (65 mg 00:00: mouth 2 [place] iron) 00 (two) Medical tablet times Branch daily. ibuprofen Yes [id number] 600mg Take 1 [facility] 600 mg 3-01 tablet by ity of tablet 00:00: mouth [place] 00 every 6 Medical (six) Branch hours as needed (Pain). Take with food or milk. norethindro Yes [id number] .35mg Take 1 [facility] ne 0.35 mg 3-01 tablet by ity of tablet 00:00: mouth [place] 00 daily. Medical Branch Yes [id number] 1{tbl} Take 1 [facility] vitamin 3-01 tablet by ity of w/FA tablet 00:00: mouth [place] 00 daily. Medical Branch docusate Yes [id number] 240mg Take 1 [facility] nivers calcium 240 3-01 capsule by it y of mg capsule 00:00: mouth once [place] 00 daily as Medical needed for Branch Constipati on. ferrous Yes [id number] 325mg Take 1 Un americo sulfate 325 3-01 tablet by ity of mg (65 mg 00:00: mouth 2 [place] iron) 00 (two) Medical tablet times Branch daily. ibuprofen Yes [id number] 600mg Take 1 [facility] 600 mg 3-01 tablet by ity of tablet 00:00: mouth [place] 00 every 6 Medical (six) Branch hours as needed (Pain). Take with food or milk. norethindro Yes [id number] .35mg Take 1 [facility] ne 0.35 mg 3-01 tablet by ity of tablet 00:00: mouth [place] 00 daily. Medical Branch Yes [id number] 1{tbl} Take 1 [facility] vitamin 3-01 tablet by ity of w/FA tablet 00:00: mouth [place] 00 daily. Medical Branch docusate Yes [id number] 240mg Take 1 [facility] nivers calcium 240 3-01 capsule by it y of mg capsule 00:00: mouth once [place] 00 daily as Medical needed for Branch Constipati on. ferrous Yes [id number] 325mg Take 1 Un americo sulfate 325 3-01 tablet by ity of mg (65 mg 00:00: mouth 2 [place] iron) 00 (two) Medical tablet times Branch daily. ibuprofen Yes [id number] 600mg Take 1 [facility] 600 mg 3-01 tablet by ity of tablet 00:00: mouth [place] 00 every 6 Medical (six) Branch hours as needed (Pain). Take with food or milk. norethindro Yes [id number] .35mg Take 1 [facility] ne 0.35 mg 3-01 tablet by ity of tablet 00:00: mouth [place] 00 daily. Medical Branch Yes [id number] 1{tbl} Take 1 [facility] vitamin 3-01 tablet by ity of w/FA tablet 00:00: mouth [place] 00 daily. Medical Branch docusate Yes [id number] 240mg Take 1 [facility] nivers calcium 240 3-01 capsule by it y of mg capsule 00:00: mouth once [place] 00 daily as Medical needed for Branch Constipati on. ferrous Yes [id number] 325mg Take 1 Un americo sulfate 325 3-01 tablet by ity of mg (65 mg 00:00: mouth 2 [place] iron) 00 (two) Medical tablet times Branch daily. ibuprofen Yes [id number] 600mg Take 1 [facility] 600 mg 3-01 tablet by ity of tablet 00:00: mouth [place] 00 every 6 Medical (six) Branch hours as needed (Pain). Take with food or milk. norethindro Yes [id number] .35mg Take 1 [facility] ne 0.35 mg 3-01 tablet by ity of tablet 00:00: mouth [place] 00 daily. Medical Branch Yes [id number] 1{tbl} Take 1 [facility] vitamin 3-01 tablet by ity of w/FA tablet 00:00: mouth [place] 00 daily. Medical Branch docusate Yes [id number] 240mg Take 1 [facility] nivers calcium 240 3-01 capsule by it y of mg capsule 00:00: mouth once [place] 00 daily as Medical needed for Branch Constipati on. ferrous Yes [id number] 325mg Take 1 Un americo sulfate 325 3-01 tablet by ity of mg (65 mg 00:00: mouth 2 [place] iron) 00 (two) Medical tablet times Branch daily. ibuprofen Yes [id number] 600mg Take 1 [facility] 600 mg 3-01 tablet by ity of tablet 00:00: mouth [place] 00 every 6 Medical (six) Branch hours as needed (Pain). Take with food or milk. norethindro Yes [id number] .35mg Take 1 [facility] ne 0.35 mg 3-01 tablet by ity of tablet 00:00: mouth [place] 00 daily. Medical Branch Yes [id number] 1{tbl} Take 1 [facility] vitamin 3-01 tablet by ity of w/FA tablet 00:00: mouth [place] 00 daily. Medical Branch docusate Yes [id number] 240mg Take 1 [facility] nivers calcium 240 3-01 capsule by it y of mg capsule 00:00: mouth once [place] 00 daily as Medical needed for Branch Constipati on. ferrous Yes [id number] 325mg Take 1 Un americo sulfate 325 3-01 tablet by ity of mg (65 mg 00:00: mouth 2 [place] iron) 00 (two) Medical tablet times Branch daily. ibuprofen Yes [id number] 600mg Take 1 [facility] 600 mg 3-01 tablet by ity of tablet 00:00: mouth [place] 00 every 6 Medical (six) Branch hours as needed (Pain). Take with food or milk. norethindro Yes [id number] .35mg Take 1 [facility] ne 0.35 mg 3-01 tablet by ity of tablet 00:00: mouth [place] 00 daily. Medical Branch Yes [id number] 1{tbl} Take 1 [facility] vitamin 3-01 tablet by ity of w/FA tablet 00:00: mouth [place] 00 daily. Medical Branch docusate Yes [id number] 240mg Take 1 [facility] nivers calcium 240 3-01 capsule by it y of mg capsule 00:00: mouth once [place] 00 daily as Medical needed for Branch Constipati on. ferrous Yes [id number] 325mg Take 1 Un americo sulfate 325 3-01 tablet by ity of mg (65 mg 00:00: mouth 2 [place] iron) 00 (two) Medical tablet times Branch daily. ibuprofen Yes [id number] 600mg Take 1 [facility] 600 mg 3-01 tablet by ity of tablet 00:00: mouth [place] 00 every 6 Medical (six) Branch hours as needed (Pain). Take with food or milk. norethindro Yes [id number] .35mg Take 1 [facility] ne 0.35 mg 3-01 tablet by ity of tablet 00:00: mouth [place] 00 daily. Medical Branch Yes [id number] 1{tbl} Take 1 [facility] vitamin 3-01 tablet by ity of w/FA tablet 00:00: mouth [place] 00 daily. Medical Branch docusate Yes [id number] 240mg Take 1 [facility] nivers calcium 240 3-01 capsule by it y of mg capsule 00:00: mouth once [place] 00 daily as Medical needed for Branch Constipati on. ferrous Yes [id number] 325mg Take 1 [facility] [place] sulfate 325 3-01 tablet by ity of mg (65 mg 00:00: mouth 2 [place] iron) 00 (two) Medical tablet times Branch daily. ibuprofen Yes [id number] 600mg Take 1 [facility] 600 mg 3-01 tablet by ity of tablet 00:00: mouth [place] 00 every 6 Medical (six) Branch hours as needed (Pain). Take with food or milk. norethindro Yes [id number] .35mg Take 1 [facility] ne 0.35 mg 3-01 tablet by ity of tablet 00:00: mouth [place] 00 daily. Medical Branch Yes [id number] 1{tbl} Take 1 [facility] vitamin 3-01 tablet by ity of w/FA tablet 00:00: mouth [place] 00 daily. Medical Branch docusate Yes [id number] 240mg Take 1 U nivers calcium 240 3-01 capsule by it y of mg capsule 00:00: mouth once [place] 00 daily as Medical needed for Branch Constipati on. ferrous Yes [id number] 325mg Take 1 [facility] [place] sulfate 325 3-01 tablet by ity of mg (65 mg 00:00: mouth 2 [place] iron) 00 (two) Medical tablet times Branch daily. ibuprofen Yes [id number] 600mg Take 1 [facility] 600 mg 3-01 tablet by ity of tablet 00:00: mouth [place] 00 every 6 Medical (six) Branch hours as needed (Pain). Take with food or milk. norethindro Yes [id number] .35mg Take 1 [facility] ne 0.35 mg 3-01 tablet by ity of tablet 00:00: mouth [place] 00 daily. Medical Branch Yes [id number] 1{tbl} Take 1 [facility] vitamin 3-01 tablet by ity of w/FA tablet 00:00: mouth [place] 00 daily. Medical Branch docusate Yes [id number] 240mg Take 1 U nivers calcium 240 3-01 capsule by it y of mg capsule 00:00: mouth once [place] 00 daily as Medical needed for Branch Constipati on. ferrous Yes [id number] 325mg Take 1 [facility] [place] sulfate 325 3-01 tablet by ity of mg (65 mg 00:00: mouth 2 [place] iron) 00 (two) Medical tablet times Branch daily. ibuprofen Yes [id number] 600mg Take 1 [facility] 600 mg 3-01 tablet by ity of tablet 00:00: mouth [place] 00 every 6 Medical (six) Branch hours as needed (Pain). Take with food or milk. norethindro Yes [id number] .35mg Take 1 [facility] ne 0.35 mg 3-01 tablet by ity of tablet 00:00: mouth [place] 00 daily. Medical Branch Yes [id number] 1{tbl} Take 1 [facility] vitamin 3-01 tablet by ity of w/FA tablet 00:00: mouth [place] 00 daily. Medical Branch docusate Yes [id number] 240mg Take 1 [facility] nivers calcium 240 3-01 capsule by it y of mg capsule 00:00: mouth once [place] 00 daily as Medical needed for Branch Constipati on. ferrous Yes [id number] 325mg Take 1 [facility] [place] sulfate 325 3-01 tablet by ity of mg (65 mg 00:00: mouth 2 [place] iron) 00 (two) Medical tablet times Branch daily. ibuprofen Yes [id number] 600mg Take 1 [facility] 600 mg 3-01 tablet by ity of tablet 00:00: mouth [place] 00 every 6 Medical (six) Branch hours as needed (Pain). Take with food or milk. norethindro Yes [id number] .35mg Take 1 [facility] ne 0.35 mg 3-01 tablet by ity of tablet 00:00: mouth [place] 00 daily. Medical Branch Yes [id number] 1{tbl} Take 1 [facility] vitamin 3-01 tablet by ity of w/FA tablet 00:00: mouth [place] 00 daily. Medical Branch docusate Yes [id number] 240mg Take 1 [facility] nivers calcium 240 3-01 capsule by it y of mg capsule 00:00: mouth once [place] 00 daily as Medical needed for Branch Constipati on. ferrous Yes [id number] 325mg Take 1 [facility] [place] sulfate 325 3-01 tablet by ity of mg (65 mg 00:00: mouth 2 [place] iron) 00 (two) Medical tablet times Branch daily. ibuprofen Yes [id number] 600mg Take 1 [facility] 600 mg 3-01 tablet by ity of tablet 00:00: mouth [place] 00 every 6 Medical (six) Branch hours as needed (Pain). Take with food or milk. norethindro Yes [id number] .35mg Take 1 [facility] ne 0.35 mg 3-01 tablet by ity of tablet 00:00: mouth [place] 00 daily. Medical Branch Yes [id number] 1{tbl} Take 1 [facility] vitamin 3-01 tablet by ity of w/FA tablet 00:00: mouth [place] 00 daily. Medical Branch docusate Yes [id number] 240mg Take 1 [facility] nivers calcium 240 3-01 capsule by it y of mg capsule 00:00: mouth once [place] 00 daily as Medical needed for Branch Constipati on. ferrous Yes [id number] 325mg Take 1 [facility] [place] sulfate 325 3-01 tablet by ity of mg (65 mg 00:00: mouth 2 [place] iron) 00 (two) Medical tablet times Branch daily. ibuprofen Yes [id number] 600mg Take 1 [facility] 600 mg 3-01 tablet by ity of tablet 00:00: mouth [place] 00 every 6 Medical (six) Branch hours as needed (Pain). Take with food or milk. norethindro Yes [id number] .35mg Take 1 [facility] ne 0.35 mg 3-01 tablet by ity of tablet 00:00: mouth [place] 00 daily. Medical Branch Yes [id number] 1{tbl} Take 1 [facility] vitamin 3-01 tablet by ity of w/FA tablet 00:00: mouth [place] 00 daily. Medical Branch docusate Yes [id number] 240mg Take 1 U nivers calcium 240 3-01 capsule by it y of mg capsule 00:00: mouth once [place] 00 daily as Medical needed for Branch Constipati on. ferrous Yes [id number] 325mg Take 1 [facility] [place] sulfate 325 3-01 tablet by ity of mg (65 mg 00:00: mouth 2 [place] iron) 00 (two) Medical tablet times Branch daily. ibuprofen Yes [id number] 600mg Take 1 [facility] 600 mg 3-01 tablet by ity of tablet 00:00: mouth [place] 00 every 6 Medical (six) Branch hours as needed (Pain). Take with food or milk. norethindro Yes [id number] .35mg Take 1 [facility] ne 0.35 mg 3-01 tablet by ity of tablet 00:00: mouth [place] 00 daily. Medical Branch Yes [id number] 1{tbl} Take 1 [facility] vitamin 3-01 tablet by ity of w/FA tablet 00:00: mouth [place] 00 daily. Medical Branch docusate Yes [id number] 240mg Take 1 [facility] nivers calcium 240 3-01 capsule by it y of mg capsule 00:00: mouth once [place] 00 daily as Medical needed for Branch Constipati on. ferrous Yes [id number] 325mg Take 1 [facility] [place] sulfate 325 3-01 tablet by ity of mg (65 mg 00:00: mouth 2 [place] iron) 00 (two) Medical tablet times Branch daily. ibuprofen Yes [id number] 600mg Take 1 [facility] 600 mg 3-01 tablet by ity of tablet 00:00: mouth [place] 00 every 6 Medical (six) Branch hours as needed (Pain). Take with food or milk. norethindro Yes [id number] .35mg Take 1 [facility] ne 0.35 mg 3-01 tablet by ity of tablet 00:00: mouth [place] 00 daily. Medical Branch Yes [id number] 1{tbl} Take 1 [facility] vitamin 3-01 tablet by ity of w/FA tablet 00:00: mouth [place] 00 daily. Medical Branch docusate Yes [id number] 240mg Take 1 [facility] nivers calcium 240 3-01 capsule by it y of mg capsule 00:00: mouth once [place] 00 daily as Medical needed for Branch Constipati on. ferrous Yes [id number] 325mg Take 1 [facility] [place] sulfate 325 3-01 tablet by ity of mg (65 mg 00:00: mouth 2 [place] iron) 00 (two) Medical tablet times Branch daily. ibuprofen Yes [id number] 600mg Take 1 [facility] 600 mg 3-01 tablet by ity of tablet 00:00: mouth [place] 00 every 6 Medical (six) Branch hours as needed (Pain). Take with food or milk. norethindro Yes [id number] .35mg Take 1 [facility] ne 0.35 mg 3-01 tablet by ity of tablet 00:00: mouth [place] 00 daily. Medical Branch Yes [id number] 1{tbl} Take 1 [facility] vitamin 3-01 tablet by ity of w/FA tablet 00:00: mouth [place] 00 daily. Medical Branch docusate Yes [id number] 240mg Take 1 [facility] nivers calcium 240 3-01 capsule by it y of mg capsule 00:00: mouth once [place] 00 daily as Medical needed for Branch Constipati on. ferrous Yes [id number] 325mg Take 1 [facility] [place] sulfate 325 3-01 tablet by ity of mg (65 mg 00:00: mouth 2 [place] iron) 00 (two) Medical tablet times Branch daily. ibuprofen Yes [id number] 600mg Take 1 [facility] 600 mg 3-01 tablet by ity of tablet 00:00: mouth [place] 00 every 6 Medical (six) Branch hours as needed (Pain). Take with food or milk. norethindro Yes [id number] .35mg Take 1 [facility] ne 0.35 mg 3-01 tablet by ity of tablet 00:00: mouth [place] 00 daily. Medical Branch Yes [id number] 1{tbl} Take 1 [facility] vitamin 3-01 tablet by ity of w/FA tablet 00:00: mouth [place] 00 daily. Medical Branch docusate Yes [id number] 240mg Take 1 [facility] nivers calcium 240 3-01 capsule by it y of mg capsule 00:00: mouth once [place] 00 daily as Medical needed for Branch Constipati on. ferrous Yes [id number] 325mg Take 1 [facility] [place] sulfate 325 3-01 tablet by ity of mg (65 mg 00:00: mouth 2 [place] iron) 00 (two) Medical tablet times Branch daily. ibuprofen Yes [id number] 600mg Take 1 [facility] 600 mg 3-01 tablet by ity of tablet 00:00: mouth [place] 00 every 6 Medical (six) Branch hours as needed (Pain). Take with food or milk. norethindro Yes [id number] .35mg Take 1 [facility] ne 0.35 mg 3-01 tablet by ity of tablet 00:00: mouth [place] 00 daily. Medical Branch Yes [id number] 1{tbl} Take 1 [facility] vitamin 3-01 tablet by ity of w/FA tablet 00:00: mouth [place] 00 daily. Medical Branch docusate Yes [id number] 240mg Take 1 [facility] nivers calcium 240 3-01 capsule by it y of mg capsule 00:00: mouth once [place] 00 daily as Medical needed for Branch Constipati on. ferrous Yes [id number] 325mg Take 1 [facility] [place] sulfate 325 3-01 tablet by ity of mg (65 mg 00:00: mouth 2 [place] iron) 00 (two) Medical tablet times Branch daily. ibuprofen Yes [id number] 600mg Take 1 [facility] 600 mg 3-01 tablet by ity of tablet 00:00: mouth [place] 00 every 6 Medical (six) Branch hours as needed (Pain). Take with food or milk. norethindro Yes [id number] .35mg Take 1 [facility] ne 0.35 mg 3-01 tablet by ity of tablet 00:00: mouth [place] 00 daily. Medical Branch Yes [id number] 1{tbl} Take 1 [facility] vitamin 3-01 tablet by ity of w/FA tablet 00:00: mouth [place] 00 daily. Medical Branch HYDROcodone 2020- No 4647 1{tbl} Take 1 U nivers -acetaminop 3-01 -09 tablet by it y of hen 5-325 00:00: 05:59 mouth [place] mg tablet 00 :00 every 6 Medical (six) Branch hours as needed (Pain scale above 4) for up to 7 days. Do not exceed 3 grams of acetaminop hen in 24 hours. Indication s: acute pain HYDROcodone 2020- No 4647 1{tbl} Take 1 U nivers -acetaminop 3-01 -09 tablet by it y of hen 5-325 00:00: 05:59 mouth [place] mg tablet 00 :00 every 6 Medical (six) Branch hours as needed (Pain scale above 4) for up to 7 days. Do not exceed 3 grams of acetaminop hen in 24 hours. Indication s: acute pain HYDROcodone 2020- No 4647 1{tbl} Take 1 U nivers -acetaminop 3-01 03-09 tablet by it y of hen 5-325 00:00: 05:59 mouth [place] mg tablet 00 :00 every 6 Medical (six) Branch hours as needed (Pain scale above 4) for up to 7 days. Do not exceed 3 grams of acetaminop hen in 24 hours. Indication s: acute pain HYDROcodone 2020- No 4647 1{tbl} Take 1 U nivers -acetaminop 3-01 -09 tablet by it y of hen 5-325 00:00: 05:59 mouth [place] mg tablet 00 :00 every 6 Medical (six) Branch hours as needed (Pain scale above 4) for up to 7 days. Do not exceed 3 grams of acetaminop hen in 24 hours. Indication s: acute pain HYDROcodone 2020- No 4647 1{tbl} Take 1 U nivers -acetaminop 3-01 -09 tablet by it y of hen 5-325 00:00: 05:59 mouth [place] mg tablet 00 :00 every 6 Medical (six) Branch hours as needed (Pain scale above 4) for up to 7 days. Do not exceed 3 grams of acetaminop hen in 24 hours. Indication s: acute pain HYDROcodone 2020- No 4647 1{tbl} Take 1 U nivers -acetaminop 3-01 -09 tablet by it y of hen 5-325 00:00: 05:59 mouth [place] mg tablet 00 :00 every 6 Medical (six) Branch hours as needed (Pain scale above 4) for up to 7 days. Do not exceed 3 grams of acetaminop hen in 24 hours. Indication s: acute pain HYDROcodone 2020- No 4647 1{tbl} Take 1 U nivers -acetaminop 3-01 -09 tablet by it y of hen 5-325 00:00: 05:59 mouth [place] mg tablet 00 :00 every 6 Medical (six) Branch hours as needed (Pain scale above 4) for up to 7 days. Do not exceed 3 grams of acetaminop hen in 24 hours. Indication s: acute pain bupropion Yes Take by Unive rs HCl 2-27 mouth. ity of (WELLBUTRIN 20:41: [place] ORAL) 18 Medical Branch bupropion Yes Take by Unive rs HCl 2-26 mouth. ity of (WELLBUTRIN 16:44: [place] ORAL) 59 Medical Branch simethicone Yes [id number] 80mg Take 1 [facility] 80 mg 2-26 tablet by ity of chewable 00:00: mouth [place] tablet 00 after Medical meals and Branch at bedtime. docusate Yes [id number] 240mg Take 1 U nivers calcium 240 2-26 capsule by it y of mg capsule 00:00: mouth at [place] 00 bedtime as Medical needed for Branch Constipati on. simethicone Yes [id number] 80mg Take 1 [facility] 80 mg 2-26 tablet by ity of chewable 00:00: mouth [place] tablet 00 after Medical meals and Branch at bedtime. docusate Yes [id number] 240mg Take 1 U nivers calcium 240 2-26 capsule by it y of mg capsule 00:00: mouth at [place] as 00 bedtime as Medical needed for Branch Constipati on. simethicone Yes 80mg 80 mg, Univ ers (GAS RELIEF 2-24 Oral, ity of (SIMETHICON 15:00: PC+HS, [place] E)) 00 First dose Medical chewable on Sat tablet 80 01/18/21 at mg 0900, Until Discontinu ed, Routine rho(D) No 300ug 300 mcg, Unive rs immune 2-17 01- Intramuscu ity of globulin 22:45: 23:02 lar, ONCE, [place] (RHOGAM) 00 :00 1 dose, Medical syringe 300 Sat Branch mcg 01/17/21 at 1645, Routine Yes 1{tbl} 1 tablet, [facility] [place] vitamin 2-23 Oral, ity of w/FA 19:00: DAILY, [place] (PRENATABS 00 First dose Med ical RX) tablet on Sat 1 tablet 01/17/21 at 1300, Until Discontinu ed, Routine alum-mag Yes 30mL 30 mL, [facility] hydroxide-s - Oral, ity of imeth 18:50: Q6HPRN, [place] (MAALOX 44 Starting Medical PLUS / Sat Branch MAG-AL 01/17/21 at PLUS) 1250, 200-200-20 Until mg/5 mL Discontinu suspension ed, 30 mL Routine, Indigestio n docusate Yes 240mg 240 mg, Unive rs calcium 2-23 Oral, ity of (SURFAK) 18:50: QHSPRN, [place] capsule 240 44 Starting Medi ruben mg Tue Branch 01/17/21 at 1250, Until Discontinu ed, Routine, Constipati on magnesium Yes 30mL 30 mL, Univer s hydroxide 01-17 Oral, ity of (MILK OF 18:50: QDAILYPRN, [place] as MAGNESIA) 44 Starting Medica l 400 mg/5 mL Tue Branch suspension 01/17/21 at 30 mL 1250, Until Discontinu ed, Routine, Constipati on D5W 0.45% 2020- No 1000mL at 100 Uni vers NaCl 01-17 02-25 mL/hr, ity of (1/2NS) IV 15:45: 14:23 1,000 mL, [place] infusion 00 :15 IV Medical 1,000 mL Infusion, Branch CONTINUOUS , Starting 01/17/21 at 0945, Until [place] 01/19/21 at 0823, Routine lactated 2020- No 500mL at 999 Unive rs ringers IV 01-17 02-23 mL/hr, 500 it y of infusion 14:15: 14:00 mL, [place] 500 mL 00 :00 Intravenou Medical s, ONCE, 1 Branch dose, 01/17/21 at 0815, Routine bupropion Yes Take by Unive rs HCl 2-23 mouth. ity of (WELLBUTRIN 11:08: [place] ORAL) 14 Medical Branch bupropion Yes Take by Unive rs HCl 2-16 mouth. ity of (WELLBUTRIN 17:08: [place] ORAL) 17 Medical Branch bupropion Yes Take by Unive rs HCl 2-16 mouth. ity of (WELLBUTRIN 17:08: [place] ORAL) 17 Medical Branch bupropion Yes Take by Unive rs HCl 2-16 mouth. ity of (WELLBUTRIN 17:08: [place] ORAL) 17 Medical Branch bupropion Yes Take by Unive rs HCl 2-16 mouth. ity of (WELLBUTRIN 17:08: [place] ORAL) 17 Medical Branch simethicone Yes 80mg 80 mg, Univ ers (GAS RELIEF 2-12 Oral, PRN, it y of (SIMETHICON 14:55: Starting [place] E)) 10 Fri Medical chewable 01/06/21 at [facility] h tablet 80 0855, mg Until Discontinu ed, Routine, Gas Yes 1{tbl} 1 tablet, Un [place] vitamin 2-12 Oral, ity of w/FA 10:45: DAILY, [place] (PRENATABS 00 First dose Med ical RX) tablet on Fri Branch 1 tablet 01/06/21 at 0445, Until Discontinu ed, Routine alum-mag Yes 30mL 30 mL, [facility] hydroxide-s 2-12 Oral, ity of imeth 10:34: Q6HPRN, [place] (MAALOX 16 Starting Medical PLUS / Fri Branch MAG-AL 01/06/21 at PLUS) 0434, 200-200-20 Until mg/5 mL Discontinu suspension ed, 30 mL Routine, Indigestio n docusate Yes 240mg 240 mg, Unive rs calcium 2-12 Oral, ity of (SURFAK) 10:34: QHSPRNLanett, [place] capsule 240 16 Starting Medi ruben mg Fri Branch 01/06/21 at 0434, Until Discontinu ed, Routine, Constipati on magnesium Yes 30mL 30 mL, Univer s hydroxide 2-12 Oral, ity of (MILK OF 10:34: QDAILYPRN, [place] as MAGNESIA) 16 Starting Medica l 400 mg/5 mL Fri Branch suspension 01/06/21 at 30 mL 0434, Until Discontinu ed, Routine, Constipati on magnesium 2020- No 2g/h 2 g/hr (25 U nivers sulfate in 01-05 mL/hr), at it y of LR 40 21:15: 09:14 25 mL/hr, [place] gram/500 mL 00 :00 IV Medical IV Solution Infusion, Bra nch CONTINUOUS , Starting [place] 01/05/21 at 1515, Until 01/06/21 at 0314, JO lactated 2020- No 1000mL at 125 Univ ers ringers IV 01-05-12 mL/hr, ity of infusion 16:38: 10:36 1,000 mL, [place] as 1,000 mL 00 :13 IV Medical Infusion, Branch CONTINUOUS , Starting [place] 01/05/21 at 1045, Until 01/06/21 at 0436, Routine betamethaso 2020- No 12mg 12 mg, Uni vers ne acet,sod 01-05 Intramuscu i ty of phos 15:00: 12:42 lar, Q24H, [place] (CELESTONE 00 :20 First dose Med ical SOLUSPAN) 6 on [place] Branch mg/mL 01/05/21 at injection 0900, 12 mg Until Discontinu ed, Routine bupropion Yes Take by Unive rs HCl 12-23 mouth. ity of (WELLBUTRIN 21:55: [place] ORAL) 18 Medical Branch bupropion Yes Take by Unive rs HCl 12-23 mouth. ity of (WELLBUTRIN 21:55: [place] ORAL) 18 Medical Branch bupropion Yes Take by Unive rs HCl 12-23 mouth. ity of (WELLBUTRIN 21:55: [place] ORAL) 18 Medical Branch bupropion Yes Take by Unive rs HCl 12-23 mouth. ity of (WELLBUTRIN 21:55: [place] ORAL) 18 Medical Branch bupropion Yes Take by Unive rs HCl 12-23 mouth. ity of (WELLBUTRIN 08:20: [place] ORAL) 40 Medical Branch rho(D) 2020- No 300ug 300 mcg, Unive rs immune 12-23 Intramuscu ity of globulin 07:45: 07:36 lar, ONCE, [place] (RHOGAM) 00 :00 1 dose, Medical syringe 300 Fri Branch mcg 12/23/20 at 0145, JO proMETHazin 2019-11 Yes [id number] 25mg Take 1 [facility] e 25 mg 2-23 tablet by ity of tablet 00:00: mouth [place] 00 every 4 Medical (four) Branch hours as needed for Nausea and Vomiting (N/V). proMETHazin 2019-11 Yes [id number] 25mg Take 1 [facility] e 25 mg 2-23 tablet by ity of tablet 00:00: mouth [place] 00 every 4 Medical (four) Branch hours as needed for Nausea and Vomiting (N/V). proMETHazin 2019-11 Yes [id number] 25mg Take 1 [facility] e 25 mg 2-23 tablet by ity of tablet 00:00: mouth [place] 00 every 4 Medical (four) Branch hours as needed for Nausea and Vomiting (N/V). proMETHazin 2020-1 Yes [id number] 25mg Take 1 [facility] e 25 mg 2-23 tablet by ity of tablet 00:00: mouth [place] 00 every 4 Medical (four) Branch hours as needed for Nausea and Vomiting (N/V). proMETHazin 2020-1 Yes [id number] 25mg Take 1 [facility] e 25 mg 2-23 tablet by ity of tablet 00:00: mouth [place] 00 every 4 Medical (four) Branch hours as needed for Nausea and Vomiting (N/V). proMETHazin 2020-1 Yes [id number] 25mg Take 1 [facility] e 25 mg 2-23 tablet by ity of tablet 00:00: mouth [place] 00 every 4 Medical (four) Branch hours as needed for Nausea and Vomiting (N/V). proMETHazin 2020-1 Yes [id number] 25mg Take 1 [facility] e 25 mg 2-23 tablet by ity of tablet 00:00: mouth [place] 00 every 4 Medical (four) Branch hours as needed for Nausea and Vomiting (N/V). proMETHazin 2020-1 Yes [id number] 25mg Take 1 [facility] e 25 mg 2-23 tablet by ity of tablet 00:00: mouth [place] 00 every 4 Medical (four) Branch hours as needed for Nausea and Vomiting (N/V). proMETHazin 2020-1 Yes [id number] 25mg Take 1 [facility] e 25 mg 2-23 tablet by ity of tablet 00:00: mouth [place] 00 every 4 Medical (four) Branch hours as needed for Nausea and Vomiting (N/V). proMETHazin 2020-1 Yes [id number] 25mg Take 1 [facility] e 25 mg 2-23 tablet by ity of tablet 00:00: mouth [place] 00 every 4 Medical (four) Branch hours as needed for Nausea and Vomiting (N/V). proMETHazin 2020-1 Yes [id number] 25mg Take 1 [facility] e 25 mg 2-23 tablet by ity of tablet 00:00: mouth [place] 00 every 4 Medical (four) Branch hours as needed for Nausea and Vomiting (N/V). proMETHazin 2020-1 Yes [id number] 25mg Take 1 [facility] e 25 mg 2-23 tablet by ity of tablet 00:00: mouth [place] 00 every 4 Medical (four) Branch hours as needed for Nausea and Vomiting (N/V). proMETHazin 2019-11 Yes [id number] 25mg Take 1 [facility] e 25 mg 2-23 tablet by ity of tablet 00:00: mouth [place] 00 every 4 Medical (four) Branch hours as needed for Nausea and Vomiting (N/V). proMETHazin 2019-11 Yes [id number] 25mg Take 1 [facility] e 25 mg 2-23 tablet by ity of tablet 00:00: mouth [place] 00 every 4 Medical (four) Branch hours as needed for Nausea and Vomiting (N/V). proMETHazin 2019-11 Yes [id number] 25mg Take 1 [facility] e 25 mg 2-23 tablet by ity of tablet 00:00: mouth [place] 00 every 4 Medical (four) Branch hours as needed for Nausea and Vomiting (N/V). proMETHazin 2019-11 Yes [id number] 25mg Take 1 [facility] e 25 mg 2-23 tablet by ity of tablet 00:00: mouth [place] 00 every 4 Medical (four) Branch hours as needed for Nausea and Vomiting (N/V). proMETHazin 2019-11 Yes [id number] 25mg Take 1 [facility] e 25 mg 2-23 tablet by ity of tablet 00:00: mouth [place] 00 every 4 Medical (four) Branch hours as needed for Nausea and Vomiting (N/V). terconazole 2019-11 Yes [id number] 1{appli Insert 1 Univers 0.8 % 1-16 cator} Applicator ity of vaginal 00:00: into [place] cream 00 vagina at Medical bedtime. [place] terconazole 2019-11 Yes [id number] 1{appli Insert 1 [facility] 0.8 % 1-16 cator} Applicator ity of vaginal 00:00: into [place] cream 00 vagina at Medical bedtime. [place] terconazole 2019-11 Yes [id number] 1{appli Insert 1 [facility] 0.8 % 1-16 cator} Applicator ity of vaginal 00:00: into [place] cream 00 vagina at Medical bedtime. [place] terconazole 2019-11 Yes [id number] 1{appli Insert 1 [facility] 0.8 % 1-16 cator} Applicator ity of vaginal 00:00: into [place] cream 00 vagina at Medical bedtime. [place] terconazole 2019-11 Yes [id number] 1{appli Insert 1 [facility] 0.8 % 1-16 cator} Applicator ity of vaginal 00:00: into [place] cream 00 vagina at Medical bedtime. [place] terconazole 2020- Yes [id number] 1{appli Insert 1 [facility] 0.8 % 1-16 cator} Applicator ity of vaginal 00:00: into [place] cream 00 vagina at Medical bedtime. [place] terconazole 2020- Yes [id number] 1{appli Insert 1 [facility] 0.8 % 1-16 cator} Applicator ity of vaginal 00:00: into [place] cream 00 vagina at Medical bedtime. Branch terconazole 2019- Yes [id number] 1{appli Insert 1 [facility] 0.8 % 1-16 cator} Applicator ity of vaginal 00:00: into [place] cream 00 vagina at Medical bedtime. [place] terconazole 2019-11 Yes [id number] 1{appli Insert 1 [facility] 0.8 % 1-16 cator} Applicator ity of vaginal 00:00: into [place] cream 00 vagina at Medical bedtime. [place] terconazole 2019- Yes [id number] 1{appli Insert 1 Univers 0.8 % 1-16 cator} Applicator ity of vaginal 00:00: into [place] cream 00 vagina at Medical bedtime. [place] terconazole 2019-11 Yes [id number] 1{appli Insert 1 Univers 0.8 % 1-16 cator} Applicator ity of vaginal 00:00: into [place] cream 00 vagina at Medical bedtime. [place] terconazole 2019- Yes [id number] 1{appli Insert 1 Univers 0.8 % 1-16 cator} Applicator ity of vaginal 00:00: into [place] cream 00 vagina at Medical bedtime. [place] terconazole 2020- Yes [id number] 1{appli Insert 1 [facility] 0.8 % 1-16 cator} Applicator ity of vaginal 00:00: into [place] cream 00 vagina at Medical bedtime. Branch terconazole 2020- Yes [id number] 1{appli Insert 1 [facility] 0.8 % 1-16 cator} Applicator ity of vaginal 00:00: into [place] cream 00 vagina at Medical bedtime. [place] terconazole 2020- Yes [id number] 1{appli Insert 1 [facility] 0.8 % 1-16 cator} Applicator ity of vaginal 00:00: into [place] cream 00 vagina at Medical bedtime. Branch terconazole 2019-11 Yes [id number] 1{appli Insert 1 [facility] 0.8 % 1-16 cator} Applicator ity of vaginal 00:00: into [place] cream 00 vagina at Medical bedtime. Branch terconazole 2019-11 Yes [id number] 1{appli Insert 1 [facility] 0.8 % 1-16 cator} Applicator ity of vaginal 00:00: into [place] cream 00 vagina at Medical bedtime. Branch terconazole 2019-11 Yes [id number] 1{appli Insert 1 [facility] 0.8 % 1-16 cator} Applicator ity of vaginal 00:00: into [place] cream 00 vagina at Medical bedtime. Branch terconazole 2019-11 Yes [id number] 1{appli Insert 1 [facility] 0.8 % 1-16 cator} Applicator ity of vaginal 00:00: into [place] cream 00 vagina at Medical bedtime. Branch fluconazole 2019-11 2020- No [id number] 150mg Take 1 [facility] (DIFLUCAN) 1-16 11-17 tablet by ity of 150 mg 00:00: 05:59 mouth [place] tablet 00 :00 now for 1 Medical dose. Branch proMETHazin 2019-11 Yes [id number] 25mg Take 1 [facility] e 25 mg 0-19 tablet by ity of tablet 00:00: mouth [place] 00 every 4 Medical (four) Branch hours as needed for Nausea and Vomiting (N/V). proMETHazin 2019-11 Yes [id number] 25mg Take 1 [facility] 25 mg 0-19 tablet by [facility]y of tablet 00:00: mouth [place] 00 every 4 Medical (four) Branch hours as needed for Nausea and Vomiting (N/V). proMETHazin 2019-11 Yes [id number] 25mg Take 1 [facility] 25 mg 0-19 tablet by ity of tablet 00:00: mouth [place] 00 every 4 Medical (four) Branch hours as needed for Nausea and Vomiting (N/V). proMETHazin 2019-11 Yes [id number] 25mg Take 1 [facility] 25 mg 0-19 tablet by ity of tablet 00:00: mouth [place] 00 every 4 Medical (four) Branch hours as needed for Nausea and Vomiting (N/V). proMETHazin 2019-11 Yes [id number] 25mg Take 1 [facility] 25 mg 0-19 tablet by ity of tablet 00:00: mouth [place] 00 every 4 Medical (four) Branch hours as needed for Nausea and Vomiting (N/V). proMETHazin 2019-11 2020- No [id number] 25mg Take 1 [facility] 25 mg 0-19 12-23 tablet by ity of tablet 00:00: 00:00 mouth [place] 00 :00 every 4 Medical (four) Branch hours as needed for Nausea and Vomiting (N/V). 0 Yes [id number] 1{packe Take 1 [facility] vit 9-28 t} Packet by ity of 33-iron-fol 00:00: mouth [place] ic-dha 00 daily. Medical ([facility] + DHA) 29 mg iron-1 mg -250 mg combo pack Yes [id number] 1{packe Take 1 [facility] 9-28 t} Packet by ity of 33-iron-fol 00:00: mouth [place] ic-dha 00 daily. Medical ([facility] + DHA) 29 mg iron-1 mg -250 mg combo pack Yes [id number] 1{packe Take 1 [facility] 9-28 t} Packet by ity of 33-iron-fol 00:00: mouth [place] ic-dha 00 daily. Medical ([facility] + DHA) 29 mg iron-1 mg -250 mg combo pack Yes [id number] 1{packe Take 1 [facility] 9-28 t} Packet by ity of 33-iron-fol 00:00: mouth [place] ic-dha 00 daily. Medical ([facility] + DHA) 29 mg iron-1 mg -250 mg combo pack Yes [id number] 1{packe Take 1 [facility] 9-28 t} Packet by ity of 33-iron-fol 00:00: mouth [place] ic-dha 00 daily. Medical ([facility] + DHA) 29 mg iron-1 mg -250 mg combo pack Yes [id number] 1{packe Take 1 [facility] 9-28 t} Packet by ity of 33-iron-fol 00:00: mouth [place] ic-dha 00 daily. Medical ([facility] + DHA) 29 mg iron-1 mg -250 mg combo pack Yes [id number] 1{packe Take 1 [facility] vit 9-28 t} Packet by ity of 33-iron-fol 00:00: mouth [place] ic-dha 00 daily. Medical ([facility] + DHA) 29 mg iron-1 mg -250 mg combo pack 2020-0 Yes [id number] 1{packe Take 1 [facility] vit 9-28 t} Packet by ity of 33-iron-fol 00:00: mouth [place] ic-dha 00 daily. Medical ([facility] + DHA) 29 mg iron-1 mg -250 mg combo pack 2020-0 Yes [id number] 1{packe Take 1 [facility] vit 9-28 t} Packet by ity of 33-iron-fol 00:00: mouth [place] ic-dha 00 daily. Medical ([facility] + DHA) 29 mg iron-1 mg -250 mg combo pack 2020-0 Yes [id number] 1{packe Take 1 [facility] vit 9-28 t} Packet by ity of 33-iron-fol 00:00: mouth [place] ic-dha 00 daily. Medical ([facility] + DHA) 29 mg iron-1 mg -250 mg combo pack 2020-0 Yes [id number] 1{packe Take 1 [facility] vit 9-28 t} Packet by ity of 33-iron-fol 00:00: mouth [place] ic-dha 00 daily. Medical ([facility] + DHA) 29 mg iron-1 mg -250 mg combo pack 2020-0 Yes [id number] 1{packe Take 1 [facility] vit 9-28 t} Packet by ity of 33-iron-fol 00:00: mouth [place] ic-dha 00 daily. Medical ([facility] + DHA) 29 mg iron-1 mg -250 mg combo pack 2020-0 Yes [id number] 1{packe Take 1 [facility] vit 9-28 t} Packet by ity of 33-iron-fol 00:00: mouth [place] ic-dha 00 daily. Medical ([facility] + DHA) 29 mg iron-1 mg -250 mg combo pack 2020-0 Yes [id number] 1{packe Take 1 [facility] vit 9-28 t} Packet by ity of 33-iron-fol 00:00: mouth [place] ic-dha 00 daily. Medical ([facility] + DHA) 29 mg iron-1 mg -250 mg combo pack 2020-0 Yes [id number] 1{packe Take 1 [facility] vit 9-28 t} Packet by ity of 33-iron-fol 00:00: mouth [place] ic-dha 00 daily. Medical ([facility] + DHA) 29 mg iron-1 mg -250 mg combo pack 2020-0 Yes [id number] 1{packe Take 1 [facility] vit 9-28 t} Packet by ity of 33-iron-fol 00:00: mouth [place] ic-dha 00 daily. Medical ([facility] + DHA) 29 mg iron-1 mg -250 mg combo pack 2020-0 Yes [id number] 1{packe Take 1 [facility] vit 9-28 t} Packet by ity of 33-iron-fol 00:00: mouth [place] ic-dha 00 daily. Medical ([facility] + DHA) 29 mg iron-1 mg -250 mg combo pack 2019-0 Yes [id number] 1{packe Take 1 [facility] vit 9-28 t} Packet by ity of 33-iron-fol 00:00: mouth [place] ic-dha 00 daily. Medical ([facility] + DHA) 29 mg iron-1 mg -250 mg combo pack 2020-0 Yes [id number] 1{packe Take 1 [facility] vit 9-28 t} Packet by ity of 33-iron-fol 00:00: mouth [place] ic-dha 00 daily. Medical ([facility] + DHA) 29 mg iron-1 mg -250 mg combo pack 2020-0 Yes [id number] 1{packe Take 1 [facility] vit 9-28 t} Packet by ity of 33-iron-fol 00:00: mouth [place] ic-dha 00 daily. Medical ([facility] + DHA) 29 mg iron-1 mg -250 mg combo pack 2020-0 Yes [id number] 1{packe Take 1 [facility] vit 9-28 t} Packet by ity of 33-iron-fol 00:00: mouth [place] ic-dha 00 daily. Medical ([facility] + DHA) 29 mg iron-1 mg -250 mg combo pack 2020-0 Yes [id number] 1{packe Take 1 [facility] vit 9-28 t} Packet by ity of 33-iron-fol 00:00: mouth [place] ic-dha 00 daily. Medical ([facility] + DHA) 29 mg iron-1 mg -250 mg combo pack 2020-0 Yes [id number] 1{packe Take 1 [facility] vit 9-28 t} Packet by ity of 33-iron-fol 00:00: mouth [place] ic-dha 00 daily. Medical ([facility] + DHA) 29 mg iron-1 mg -250 mg combo pack 2020-0 Yes [id number] 1{packe Take 1 [facility] vit 9-28 t} Packet by ity of 33-iron-fol 00:00: mouth [place] ic-dha 00 daily. Medical ([facility] + DHA) 29 mg iron-1 mg -250 mg combo pack bupropion 2020-0 Yes Take by Unive rs HCl 9-21 mouth. ity of (WELLBUTRIN 15:49: [place] ORAL) 29 Medical Branch bupropion 2019-0 Yes Take by Unive rs HCl 9-21 mouth. ity of (WELLBUTRIN 15:49: [place] ORAL) 29 Medical Branch bupropion 2019-0 Yes Take by Unive rs HCl 9-21 mouth. ity of (WELLBUTRIN 15:49: [place] ORAL) 29 Medical Branch bupropion 2019-0 Yes Take by Unive rs HCl 9-21 mouth. ity of (WELLBUTRIN 15:49: [place] ORAL) 29 Medical Branch bupropion 2019-0 Yes Take by Unive rs HCl 9-21 mouth. ity of (WELLBUTRIN 15:49: [place] ORAL) 29 Medical Branch bupropion 2019-0 Yes Take by Unive rs HCl 9-21 mouth. ity of (WELLBUTRIN 15:49: [place] ORAL) 29 Medical Branch bupropion 2020-0 Yes Take by Unive rs HCl 9-21 mouth. ity of (WELLBUTRIN 15:49: [place] ORAL) 29 Medical Branch bupropion 2020-0 Yes Take by Unive rs HCl 9-21 mouth. ity of (WELLBUTRIN 15:49: [place] ORAL) 29 Medical Branch bupropion 2020-0 Yes Take by Unive rs HCl 9-21 mouth. ity of (WELLBUTRIN 15:49: [place] ORAL) 29 Medical Branch bupropion 2020-0 Yes Take by Unive rs HCl 9-21 mouth. ity of (WELLBUTRIN 15:49: [place] ORAL) 29 Medical Branch bupropion 2020-0 Yes Take by Unive rs HCl 9-21 mouth. ity of (WELLBUTRIN 15:49: [place] ORAL) 29 Medical Branch bupropion 2020-0 Yes Take by Unive rs HCl 9-21 mouth. ity of (WELLBUTRIN 15:49: [place] ORAL) 29 Medical Branch bupropion 2020-0 Yes Take by Unive rs HCl 9-21 mouth. ity of (WELLBUTRIN 15:49: [place] ORAL) 29 Medical Branch Immunizations Ordered Filled Date Status Comments Source Immunization Name Immunization Name HPV9 2021-03-06 Completed [facility] 00:00:00 [facility] HPV9 2021-03-06 Completed [facility] of 00:00:00 [facility] HPV9 2021-03-06 Completed [facility] 00:00:00 [facility] HPV9 2021-03-06 Completed [facility] of 00:00:00 [facility] HPV9 2021-03-06 Completed [facility] of 00:00:00 [facility] HPV9 2021-03-06 Completed [facility] of 00:00:00 [facility] HPV9 2021-03-06 Completed [facility] of 00:00:00 [facility] HPV9 2021-03-06 Completed [facility] of 00:00:00 [facility] HPV9 2021-03-06 Completed [facility] of 00:00:00 [facility] HPV9 2021-03-06 Completed [facility] of 00:00:00 [facility] HPV9 2021-03-06 Completed [facility] of 00:00:00 [facility] HPV9 2021-03-06 Completed [facility] of 00:00:00 [facility] HPV9 2021-03-06 Completed [facility] of 00:00:00 [facility] HPV9 2021-03-06 Completed [facility] of 00:00:00 [facility] HPV9 2021-03-06 Completed [facility] of 00:00:00 [facility] HPV9 2021-03-06 Completed [facility] of 00:00:00 [facility] HPV9 2021-03-06 Completed [facility] of 00:00:00 [facility] HPV9 2021-03-06 Completed [facility] of 00:00:00 [facility] HPV9 2021-03-06 Completed [facility] of 00:00:00 [facility] HPV9 2021-03-06 Completed [facility] of 00:00:00 [facility] HPV9 2021-01-23 Completed University of 00:00:00 [facility] MMR 2021-01-23 Completed University of 00:00:00 [facility] Varicella 2021-01-23 Completed University of (varivax)(chicken 00:00:00 [place] M edical pox) Branch HPV9 2021-01-23 Completed [facility] of 00:00:00 [facility] MMR 2021-01-23 Completed University of 00:00:00 [facility] Varicella 2021-01-23 Completed University of (varivax)(chicken 00:00:00 [place] [facility] ed[facility] pox) Branch HPV9 2021-01-23 Completed [facility] of 00:00:00 [facility] MMR 2021-01-23 Completed [facility] of 00:00:00 [facility] Varicella 2021-01-23 Completed University of (varivax)(chicken 00:00:00 [place] [facility] ed[facility] pox) Branch HPV9 2021-01-23 Completed University of 00:00:00 [facility] MMR 2021-01-23 Completed University of 00:00:00 [facility] Varicella 2021-01-23 Completed University of (varivax)(chicken 00:00:00 [place] [facility] edical pox) Branch HPV9 2021-01-23 Completed [facility] of 00:00:00 [facility] MMR 2021-01-23 Completed [facility] of 00:00:00 [facility] Varicella 2021-01-23 Completed University of (varivax)(chicken 00:00:00 [place] [facility] edical pox) Branch HPV9 2021-01-23 Completed University of 00:00:00 [facility] MMR 2021-01-23 Completed University of 00:00:00 [facility] Varicella 2021-01-23 Completed University of (varivax)(chicken 00:00:00 [place] M edical pox) Branch HPV9 2021-01-23 Completed [facility] of 00:00:00 [facility] MMR 2021-01-23 Completed University of 00:00:00 [facility] Varicella 2021-01-23 Completed University of (varivax)(chicken 00:00:00 [place] [facility] edical pox) Branch HPV9 2021-01-23 Completed [facility] of 00:00:00 [facility] MMR 2021-01-23 Completed University of 00:00:00 [facility] Varicella 2021-01-23 Completed University of (varivax)(chicken 00:00:00 [place] [facility] ed[facility] pox) Branch HPV9 2021-01-23 Completed University of 00:00:00 [facility] MMR 2021-01-23 Completed University of 00:00:00 [facility] Varicella 2021-01-23 Completed University of (varivax)(chicken 00:00:00 [place] [facility] edical pox) Branch HPV9 2021-01-23 Completed [facility] of 00:00:00 [facility] MMR 2021-01-23 Completed [facility] of 00:00:00 [facility] Varicella 2021-01-23 Completed University of (varivax)(chicken 00:00:00 [place] M edical pox) Branch HPV9 2021-01-23 Completed University of 00:00:00 [facility] MMR 2021-01-23 Completed University of 00:00:00 [facility] Varicella 2021-01-23 Completed University of (varivax)(chicken 00:00:00 [place] M edical pox) Branch HPV9 2021-01-23 Completed University of 00:00:00 [facility] MMR 2021-01-23 Completed University of 00:00:00 [facility] Varicella 2021-01-23 Completed University of (varivax)(chicken 00:00:00 [place] [facility] edical pox) Branch HPV9 2021-01-23 Completed University of 00:00:00 [facility] MMR 2021-01-23 Completed University of 00:00:00 [facility] Varicella 2021-01-23 Completed University of (varivax)(chicken 00:00:00 [place] M edical pox) Branch HPV9 2021-01-23 Completed University of 00:00:00 [facility] MMR 2021-01-23 Completed University of 00:00:00 [facility] Varicella 2021-01-23 Completed University of (varivax)(chicken 00:00:00 [place] [facility] edical pox) Branch HPV9 2021-01-23 Completed University of 00:00:00 [facility] MMR 2021-01-23 Completed University of 00:00:00 [facility] Varicella 2021-01-23 Completed University of (varivax)(chicken 00:00:00 [place] [facility] edical pox) Branch HPV9 2021-01-23 Completed [facility] of 00:00:00 [facility] MMR 2021-01-23 Completed University of 00:00:00 [facility] Varicella 2021-01-23 Completed University of (varivax)(chicken 00:00:00 [place] [facility] edical pox) Branch HPV9 2021-01-23 Completed [facility] of 00:00:00 [facility] MMR 2021-01-23 Completed [facility] of 00:00:00 [facility] Varicella 2021-01-23 Completed University of (varivax)(chicken 00:00:00 [place] [facility] edical pox) Branch HPV9 2021-01-23 Completed [facility] of 00:00:00 [facility] MMR 2021-01-23 Completed University of 00:00:00 [facility] Varicella 2021-01-23 Completed University of (varivax)(chicken 00:00:00 [place] M edical pox) Branch HPV9 2021-01-23 Completed University of 00:00:00 [facility] MMR 2021-01-23 Completed [facility] of 00:00:00 [facility] Varicella 2021-01-23 Completed University of (varivax)(chicken 00:00:00 [place] [facility] edical pox) Branch HPV9 2021-01-23 Completed [facility] of 00:00:00 [facility] MMR 2021-01-23 Completed University of 00:00:00 [facility] Varicella 2021-01-23 Completed University of (varivax)(chicken 00:00:00 [place] [facility] ed[facility] pox) Branch [facility] 2021-01-23 Completed University of 00:00:00 [facility] MMR 2021-01-23 Completed University of 00:00:00 [facility] Varicella 2021-01-23 Completed University of (varivax)(chicken 00:00:00 [place] [facility] edical pox) Branch HPV9 2021-01-23 Completed University of 00:00:00 [facility] MMR 2021-01-23 Completed [facility] of 00:00:00 [facility] Varicella 2021-01-23 Completed University of (varivax)(chicken 00:00:00 [place] [facility] ed[facility] pox) Branch [facility] 2021-01-23 Completed University of 00:00:00 [facility] MMR 2021-01-23 Completed University of 00:00:00 [facility] Varicella 2021-01-23 Completed University of (varivax)(chicken 00:00:00 [place] [facility] edical pox) Branch [facility] 2021-01-23 Completed University of 00:00:00 [facility] MMR 2021-01-23 Completed University of 00:00:00 [facility] Varicella 2021-01-23 Completed University of (varivax)(chicken 00:00:00 [place] M edical pox) Branch HPV9 2021-01-23 Completed University of 00:00:00 [facility] MMR 2021-01-23 Completed [facility] of 00:00:00 [facility] Varicella 2021-01-23 Completed University of (varivax)(chicken 00:00:00 [place] M edical pox) Branch HPV9 2021-01-23 Completed [facility] of 00:00:00 [facility] MMR 2021-01-23 Completed [facility] of 00:00:00 [facility] Varicella 2021-01-23 Completed University of (varivax)(chicken 00:00:00 [place] M edical pox) Branch HPV9 2021-01-23 Completed [facility] of 00:00:00 [facility] MMR 2021-01-23 Completed [facility] of 00:00:00 [facility] Varicella 2021-01-23 Completed University of (varivax)(chicken 00:00:00 [place] M edical pox) Branch HPV9 2021-01-23 Completed [facility] of 00:00:00 [facility] MMR 2021-01-23 Completed [facility] of 00:00:00 [facility] Varicella 2021-01-23 Completed University of (varivax)(chicken 00:00:00 [place] M edical pox) Branch HPV9 2021-01-23 Completed [facility] of 00:00:00 [facility] MMR 2021-01-23 Completed University of 00:00:00 [facility] Varicella 2021-01-23 Completed [facility] of (varivax)(chicken 00:00:00 [place] [facility] edical pox) Branch HPV9 2021-01-23 Completed [facility] of 00:00:00 [facility] MMR 2021-01-23 Completed [facility] of 00:00:00 [facility] Varicella 2021-01-23 Completed University of (varivax)(chicken 00:00:00 [place] M edical pox) Branch HPV9 2021-01-23 Completed [facility] of 00:00:00 [facility] MMR 2021-01-23 Completed University of 00:00:00 [facility] Varicella 2021-01-23 Completed University of (varivax)(chicken 00:00:00 [place] M edical pox) Branch HPV9 2021-01-23 Completed [facility] of 00:00:00 [facility] MMR 2021-01-23 Completed [facility] of 00:00:00 [facility] Varicella 2021-01-23 Completed University of (varivax)(chicken 00:00:00 [place] M edical pox) Branch HPV9 2021-01-23 Completed [facility] of 00:00:00 [facility] MMR 2021-01-23 Completed [facility] of 00:00:00 [facility] Varicella 2021-01-23 Completed University of (varivax)(chicken 00:00:00 [place] M edical pox) Branch [facility] 2021-01-23 Completed University of 00:00:00 [facility] MMR 2021-01-23 Completed [facility] of 00:00:00 [facility] Varicella 2021-01-23 Completed University of (varivax)(chicken 00:00:00 [place] [facility] edical pox) Branch [facility] 2021-01-23 Completed University of 00:00:00 [facility] MMR 2021-01-23 Completed [facility] of 00:00:00 [facility] Varicella 2021-01-23 Completed University of (varivax)(chicken 00:00:00 [place] [facility] edical pox) Branch [facility] 2021-01-23 Completed University of 00:00:00 [facility] MMR 2021-01-23 Completed University of 00:00:00 [facility] Varicella 2021-01-23 Completed University of (varivax)(chicken 00:00:00 [place] M edical pox) Branch Rho (d) Immune 2021-01-17 Completed University of Globulin 00:00:00 [facility] Rho (d) Immune 2021-01-17 Completed University of Globulin 00:00:00 [facility] Rho (d) Immune 2021-01-17 Completed University of Globulin 00:00:00 [facility] Rho (d) Immune 2021-01-17 Completed University of Globulin 00:00:00 [facility] Rho (d) Immune 2021-01-17 Completed University of Globulin 00:00:00 [facility] Rho (d) Immune 2021-01-17 Completed University of Globulin 00:00:00 [facility] Rho (d) Immune 2021-01-17 Completed University of Globulin 00:00:00 [facility] Rho (d) Immune 2021-01-17 Completed University of Globulin 00:00:00 [place] [facility] Rho (d) Immune 2021-01-17 Completed University of Globulin 00:00:00 [place] [facility] Rho (d) Immune 2021-01-17 Completed University of Globulin 00:00:00 [facility] Rho (d) Immune 2021-01-17 Completed University of Globulin 00:00:00 [place] [facility] Rho (d) Immune 2021-01-17 Completed University of Globulin 00:00:00 [facility] Rho (d) Immune 2021-01-17 Completed University of Globulin 00:00:00 [facility] Rho (d) Immune 2021-01-17 Completed University of Globulin 00:00:00 [facility] Rho (d) Immune 2021-01-17 Completed University of Globulin 00:00:00 [facility] Rho (d) Immune 2021-01-17 Completed University of Globulin 00:00:00 [facility] Rho (d) Immune 2021-01-17 Completed University of Globulin 00:00:00 [facility] Rho (d) Immune 2021-01-17 Completed University of Globulin 00:00:00 [facility] Rho (d) Immune 2021-01-17 Completed University of Globulin 00:00:00 [facility] Rho (d) Immune 2021-01-17 Completed University of Globulin 00:00:00 [facility] Rho (d) Immune 2021-01-17 Completed University of Globulin 00:00:00 [facility] Rho (d) Immune 2021-01-17 Completed University of Globulin 00:00:00 [place] [facility] Rho (d) Immune 2021-01-17 Completed University of Globulin 00:00:00 [facility] Rho (d) Immune 2021-01-17 Completed University of Globulin 00:00:00 [facility] Rho (d) Immune 2021-01-17 Completed University of Globulin 00:00:00 [facility] Rho (d) Immune 2021-01-17 Completed University of Globulin 00:00:00 [facility] Rho (d) Immune 2021-01-17 Completed University of Globulin 00:00:00 [place] [facility] Rho (d) Immune 2021-01-17 Completed University of Globulin 00:00:00 [facility] Rho (d) Immune 2021-01-17 Completed University of Globulin 00:00:00 [facility] Rho (d) Immune 2021-01-17 Completed [facility] of Globulin 00:00:00 [facility] Rho (d) Immune 2021-01-17 Completed [facility] of Globulin 00:00:00 [facility] Rho (d) Immune 2021-01-17 Completed [facility] of Globulin 00:00:00 [facility] Rho (d) Immune 2021-01-17 Completed [facility] of Globulin 00:00:00 [facility] Rho (d) Immune 2021-01-17 Completed [facility] of Globulin 00:00:00 [facility] Rho (d) Immune 2021-01-17 Completed [facility] of Globulin 00:00:00 [facility] Rho (d) Immune 2021-01-17 Completed [facility] of Globulin 00:00:00 [facility] Rho (d) Immune 2021-01-17 Completed [facility] of Globulin 00:00:00 [facility] Rho (d) Immune 2021-01-17 Completed [facility] of Globulin 00:00:00 [facility] Rho (d) Immune 2021-01-17 Completed [facility] of Globulin 00:00:00 [facility] TDAP 2021-01-16 Completed [facility] of 00:00:00 [facility] TDAP 2021-01-16 Completed [facility] of 00:00:00 [facility] TDAP 2021-01-16 Completed [facility] of 00:00:00 [facility] TDAP 2021-01-16 Completed University of 00:00:00 [facility] TDAP 2021-01-16 Completed [facility] of 00:00:00 [facility] TDAP 2021-01-16 Completed University of 00:00:00 [facility] TDAP 2021-01-16 Completed University of 00:00:00 [facility] TDAP 2021-01-16 Completed [facility] of 00:00:00 [facility] TDAP 2021-01-16 Completed University of 00:00:00 [facility] TDAP 2021-01-16 Completed [facility] of 00:00:00 [facility] TDAP 2021-01-16 Completed [facility] of 00:00:00 [facility] TDAP 2021-01-16 Completed [facility] of 00:00:00 [facility] TDAP 2021-01-16 Completed [facility] of 00:00:00 [facility] TDAP 2021-01-16 Completed University of 00:00:00 [place] [facility] TDAP 2021-01-16 Completed University of 00:00:00 [place] [facility] TDAP 2021-01-16 Completed University of 00:00:00 [place] [facility] TDAP 2021-01-16 Completed University of 00:00:00 [place] [facility] TDAP 2021-01-16 Completed University of 00:00:00 [place] [facility] TDAP 2021-01-16 Completed University of 00:00:00 [place] [facility] TDAP 2021-01-16 Completed University of 00:00:00 [place] [facility] TDAP 2021-01-16 Completed University of 00:00:00 [place] [facility] TDAP 2021-01-16 Completed [facility] of 00:00:00 [place] [facility] TDAP 2021-01-16 Completed [facility] 00:00:00 [facility] [facility] 2021-01-16 Completed [facility] of 00:00:00 [facility] TDAP 2021-01-16 Completed [facility] of 00:00:00 [facility] TDAP 2021-01-16 Completed University of 00:00:00 [facility] TDAP 2021-01-16 Completed University of 00:00:00 [facility] TDAP 2021-01-16 Completed University of 00:00:00 [facility] TDAP 2021-01-16 Completed University of 00:00:00 [facility] TDAP 2021-01-16 Completed University of 00:00:00 [facility] TDAP 2021-01-16 Completed University of 00:00:00 [facility] TDAP 2021-01-16 Completed [facility] of 00:00:00 [facility] TDAP 2021-01-16 Completed [facility] of 00:00:00 [facility] TDAP 2021-01-16 Completed [facility] of 00:00:00 [facility] TDAP 2021-01-16 Completed [facility] 00:00:00 [facility] TDAP 2021-01-16 Completed [facility] 00:00:00 [facility] TDAP 2021-01-16 Completed [facility] of 00:00:00 [facility] TDAP 2021-01-16 Completed University of 00:00:00 [facility] TDAP 2021-01-16 Completed [facility] 00:00:00 [facility] TDAP 2021-01-16 Completed University of 00:00:00 [facility] TDAP 2021-01-16 Completed University of 00:00:00 [facility] Rho (d) Immune 2021-01-05 Completed University of Globulin 00:00:00 [facility] Rho (d) Immune 2021-01-05 Completed University of Globulin 00:00:00 [facility] Rho (d) Immune 2021-01-05 Completed University of Globulin 00:00:00 [facility] Rho (d) Immune 2021-01-05 Completed University of Globulin 00:00:00 [facility] Rho (d) Immune 2021-01-05 Completed University of Globulin 00:00:00 [facility] Rho (d) Immune 2021-01-05 Completed University of Globulin 00:00:00 [facility] Rho (d) Immune 2021-01-05 Completed University of Globulin 00:00:00 [facility] Rho (d) Immune 2021-01-05 Completed University of Globulin 00:00:00 [facility] Rho (d) Immune 2021-01-05 Completed University of Globulin 00:00:00 [facility] Rho (d) Immune 2021-01-05 Completed University of Globulin 00:00:00 [facility] Rho (d) Immune 2021-01-05 Completed University of Globulin 00:00:00 [facility] Rho (d) Immune 2021-01-05 Completed University of Globulin 00:00:00 [facility] Rho (d) Immune 2021-01-05 Completed University of Globulin 00:00:00 [facility] Rho (d) Immune 2021-01-05 Completed University of Globulin 00:00:00 [facility] Rho (d) Immune 2021-01-05 Completed University of Globulin 00:00:00 [facility] Rho (d) Immune 2021-01-05 Completed University of Globulin 00:00:00 [facility] Rho (d) Immune 2021-01-05 Completed [facility] of Globulin 00:00:00 [facility] Rho (d) Immune 2021-01-05 Completed University of Globulin 00:00:00 [facility] Rho (d) Immune 2021-01-05 Completed University of Globulin 00:00:00 [facility] Rho (d) Immune 2021-01-05 Completed University of Globulin 00:00:00 [facility] Rho (d) Immune 2021-01-05 Completed University of Globulin 00:00:00 [facility] Rho (d) Immune 2021-01-05 Completed University of Globulin 00:00:00 [facility] Rho (d) Immune 2021-01-05 Completed [facility] of Globulin 00:00:00 [facility] Rho (d) Immune 2021-01-05 Completed University of Globulin 00:00:00 [facility] Rho (d) Immune 2021-01-05 Completed University of Globulin 00:00:00 [facility] Rho (d) Immune 2021-01-05 Completed [facility] of Globulin 00:00:00 [facility] Rho (d) Immune 2021-01-05 Completed [facility] of Globulin 00:00:00 [facility] Rho (d) Immune 2021-01-05 Completed [facility] of Globulin 00:00:00 [facility] Rho (d) Immune 2021-01-05 Completed [facility] of Globulin 00:00:00 [facility] Rho (d) Immune 2021-01-05 Completed University of Globulin 00:00:00 [facility] Rho (d) Immune 2021-01-05 Completed [facility] of Globulin 00:00:00 [facility] Rho (d) Immune 2021-01-05 Completed [facility] of Globulin 00:00:00 [facility] Rho (d) Immune 2021-01-05 Completed [facility] of Globulin 00:00:00 [facility] Rho (d) Immune 2021-01-05 Completed [facility] of Globulin 00:00:00 [facility] Rho (d) Immune 2021-01-05 Completed [facility] of Globulin 00:00:00 [facility] Rho (d) Immune 2021-01-05 Completed [facility] of Globulin 00:00:00 [facility] Rho (d) Immune 2021-01-05 Completed [facility] of Globulin 00:00:00 [facility] Rho (d) Immune 2021-01-05 Completed [facility] of Globulin 00:00:00 [facility] Rho (d) Immune 2021-01-05 Completed [facility] of Globulin 00:00:00 [facility] Rho (d) Immune 2021-01-05 Completed [facility] of Globulin 00:00:00 [facility] Rho (d) Immune 2021-01-05 Completed [facility] of Globulin 00:00:00 [facility] Rho (d) Immune 2021-01-05 Completed [facility] of Globulin 00:00:00 [facility] Rho (d) Immune 2021-01-05 Completed [facility] of Globulin 00:00:00 [facility] Rho (d) Immune 2020-12-23 Completed [facility] of Globulin 00:00:00 [facility] Rho (d) Immune 2020-12-23 Completed [facility] of Globulin 00:00:00 [facility] Rho (d) Immune 2020-12-23 Completed [facility] of Globulin 00:00:00 [facility] Rho (d) Immune 2020-12-23 Completed [facility] of Globulin 00:00:00 [facility] Rho (d) Immune 2020-12-23 Completed [facility] of Globulin 00:00:00 [facility] Rho (d) Immune 2020-12-23 Completed [facility] of Globulin 00:00:00 [facility] Rho (d) Immune 2020-12-23 Completed [facility] of Globulin 00:00:00 [facility] Rho (d) Immune 2020-12-23 Completed [facility] of Globulin 00:00:00 [facility] Rho (d) Immune 2020-12-23 Completed [facility] of Globulin 00:00:00 [facility] Rho (d) Immune 2020-12-23 Completed [facility] of Globulin 00:00:00 [facility] Rho (d) Immune 2020-12-23 Completed [facility] of Globulin 00:00:00 [facility] Rho (d) Immune 2020-12-23 Completed [facility] of Globulin 00:00:00 [facility] Rho (d) Immune 2020-12-23 Completed [facility] of Globulin 00:00:00 [facility] Rho (d) Immune 2020-12-23 Completed [facility] of Globulin 00:00:00 [facility] Rho (d) Immune 2020-12-23 Completed [facility] of Globulin 00:00:00 [facility] Rho (d) Immune 2020-12-23 Completed [facility] of Globulin 00:00:00 [facility] Rho (d) Immune 2020-12-23 Completed [facility] of Globulin 00:00:00 [facility] Rho (d) Immune 2020-12-23 Completed [facility] of Globulin 00:00:00 [facility] Rho (d) Immune 2020-12-23 Completed [facility] of Globulin 00:00:00 [facility] Rho (d) Immune 2020-12-23 Completed [facility] of Globulin 00:00:00 [facility] Rho (d) Immune 2020-12-23 Completed [facility] of Globulin 00:00:00 [facility] Rho (d) Immune 2020-12-23 Completed [facility] of Globulin 00:00:00 [facility] Rho (d) Immune 2020-12-23 Completed [facility] of Globulin 00:00:00 [facility] Rho (d) Immune 2020-12-23 Completed [facility] of Globulin 00:00:00 [facility] Rho (d) Immune 2020-12-23 Completed [facility] of Globulin 00:00:00 [facility] Rho (d) Immune 2020-12-23 Completed [facility] of Globulin 00:00:00 [facility] Rho (d) Immune 2020-12-23 Completed [facility] of Globulin 00:00:00 [facility] Rho (d) Immune 2020-12-23 Completed [facility] of Globulin 00:00:00 [facility] Rho (d) Immune 2020-12-23 Completed [facility] of Globulin 00:00:00 [facility] Rho (d) Immune 2020-12-23 Completed [facility] of Globulin 00:00:00 [facility] Rho (d) Immune 2020-12-23 Completed [facility] of Globulin 00:00:00 [facility] Rho (d) Immune 2020-12-23 Completed [facility] of Globulin 00:00:00 [facility] Rho (d) Immune 2020-12-23 Completed [facility] of Globulin 00:00:00 [facility] Rho (d) Immune 2020-12-23 Completed [facility] of Globulin 00:00:00 [facility] Rho (d) Immune 2020-12-23 Completed [facility] of Globulin 00:00:00 [facility] Rho (d) Immune 2020-12-23 Completed [facility] of Globulin 00:00:00 [facility] Rho (d) Immune 2020-12-23 Completed [facility] of Globulin 00:00:00 [facility] Rho (d) Immune 2020-12-23 Completed [facility] of Globulin 00:00:00 [facility] Rho (d) Immune 2020-12-23 Completed [facility] of Globulin 00:00:00 [facility] Rho (d) Immune 2020-12-23 Completed [facility] of Globulin 00:00:00 [facility] Rho (d) Immune 2020-12-23 Completed [facility] of Globulin 00:00:00 [facility] Rho (d) Immune 2020-12-23 Completed [facility] of Globulin 00:00:00 [facility] Rho (d) Immune 2020-12-23 Completed [facility] of Globulin 00:00:00 [facility] Rho (d) Immune 2020-12-23 Completed [facility] of Globulin 00:00:00 [facility] Rho (d) Immune 2020-12-23 Completed [facility] of Globulin 00:00:00 [facility] Rho (d) Immune 2020-12-23 Completed [facility] of Globulin 00:00:00 [facility] Rho (d) Immune 2020-12-23 Completed [facility] of Globulin 00:00:00 [facility] Rho (d) Immune 2020-12-23 Completed [facility] of Globulin 00:00:00 [facility] Influenza Virus 2020-08-15 Completed Universit y of [facility] .5 mL 00:00:00 [facility] Influenza Virus 2020-08-15 Completed Universit y of [facility] .5 mL 00:00:00 [facility] Influenza Virus 2020-08-15 Completed Universit y of [facility] .5 mL 00:00:00 [facility] Influenza Virus 2020-08-15 Completed [facility]it y of [facility] .5 mL 00:00:00 [facility] Influenza Virus 2020-08-15 Completed [facility]it y of [facility] .5 mL 00:00:00 [facility] Influenza Virus 2020-08-15 Completed [facility]it y of [facility] .5 mL 00:00:00 [facility] Influenza Virus 2020-08-15 Completed [facility]it y of [facility] .5 mL 00:00:00 [facility] Influenza Virus 2020-08-15 Completed [facility]it y of [facility] .5 mL 00:00:00 [facility] Influenza Virus 2020-08-15 Completed Universit y of [facility] .5 mL 00:00:00 [facility] Influenza Virus 2020-08-15 Completed [facility]it y of [facility] .5 mL 00:00:00 [facility] Influenza Virus 2020-08-15 Completed [facility]it y of [facility] .5 mL 00:00:00 [facility] Influenza Virus 2020-08-15 Completed [facility]it y of [facility] .5 mL 00:00:00 [facility] Influenza Virus 2020-08-15 Completed [facility]it y of [facility] .5 mL 00:00:00 [facility] Influenza Virus 2020-08-15 Completed [facility]it y of [facility] .5 mL 00:00:00 [facility] Influenza Virus 2020-08-15 Completed [facility]it y of [facility] .5 mL 00:00:00 [facility] Influenza Virus 2020-08-15 Completed [facility]it y of [facility] .5 mL 00:00:00 [facility] Influenza Virus 2020-08-15 Completed [facility]it y of [facility] .5 mL 00:00:00 [facility] Influenza Virus 2020-08-15 Completed [facility]it y of [facility] .5 mL 00:00:00 [facility] Influenza Virus 2020-08-15 Completed [facility]it y of [facility] .5 mL 00:00:00 [facility] Influenza Virus 2020-08-15 Completed [facility] y of [facility] .5 mL 00:00:00 [facility] Influenza Virus 2020-08-15 Completed [facility] y of [facility] .5 mL 00:00:00 [facility] Influenza Virus 2020-08-15 Completed [facility] y of [facility] .5 mL 00:00:00 [facility] Influenza Virus 2020-08-15 Completed [facility] y of [facility] .5 mL 00:00:00 [facility] Influenza Virus 2020-08-15 Completed [facility] y of [facility] .5 mL 00:00:00 [facility] Influenza Virus 2020-08-15 Completed [facility] y of [facility] .5 mL 00:00:00 [facility] Influenza Virus 2020-08-15 Completed [facility] y of [facility] .5 mL 00:00:00 [facility] Influenza Virus 2020-08-15 Completed [facility] y of [facility] .5 mL 00:00:00 [facility] Influenza Virus 2020-08-15 Completed [facility] y of [facility] .5 mL 00:00:00 [facility] Influenza Virus 2020-08-15 Completed [facility] y of [facility] .5 mL 00:00:00 [facility] Influenza Virus 2020-08-15 Completed [facility] y of [facility] .5 mL 00:00:00 [facility] Influenza Virus 2020-08-15 Completed [facility] y of [facility] .5 mL 00:00:00 [facility] Influenza Virus 2020-08-15 Completed [facility] y of [facility] .5 mL 00:00:00 [facility] Influenza Virus 2020-08-15 Completed [facility] y of [facility] .5 mL 00:00:00 [facility] Influenza Virus 2020-08-15 Completed [facility] y of [facility] .5 mL 00:00:00 [facility] Influenza Virus 2020-08-15 Completed [facility] y of [facility] .5 mL 00:00:00 [facility] Influenza Virus 2020-08-15 Completed [facility]it y of [facility] .5 mL 00:00:00 [facility] Influenza Virus 2020-08-15 Completed [facility] y of [facility] .5 mL 00:00:00 [facility] Influenza Virus 2020-08-15 Completed [facility] y of [facility] .5 mL 00:00:00 [facility] Influenza Virus 2020-08-15 Completed [facility] y of [facility] .5 mL 00:00:00 [facility] Influenza Virus 2020-08-15 Completed [facility] y of [facility] .5 mL 00:00:00 [facility] Influenza Virus 2020-08-15 Completed [facility] y of [facility] .5 mL 00:00:00 [facility] Influenza Virus 2020-08-15 Completed [facility] y of [facility] .5 mL 00:00:00 [facility] Influenza Virus 2020-08-15 Completed [facility] y of [facility] .5 mL 00:00:00 [facility] Influenza Virus 2020-08-15 Completed [facility] y of [facility] .5 mL 00:00:00 [facility] Influenza Virus 2020-08-15 Completed [facility] y of [facility] .5 mL 00:00:00 [facility] Influenza Virus 2020-08-15 Completed [facility] y of [facility] .5 mL 00:00:00 [facility] Influenza Virus 2020-08-15 Completed [facility] y of [facility] .5 mL 00:00:00 [facility] Influenza Virus 2020-08-15 Completed [facility] y of [facility] .5 mL 00:00:00 [facility] Influenza Virus 2020-08-15 Completed [facility]it y of [facility] .5 mL 00:00:00 [facility] Influenza Virus 2020-08-15 Completed [facility] y of [facility] .5 mL 00:00:00 [facility] Influenza Virus 2020-08-15 Completed [facility] y of [facility] .5 mL 00:00:00 [facility] Influenza Virus 2020-08-15 Completed [facility] y of [facility] .5 mL 00:00:00 [facility] Influenza Virus 2020-08-15 Completed [facility] y of [facility] .5 mL 00:00:00 [facility] Influenza Virus 2020-08-15 Completed [facility] y of [facility] .5 mL 00:00:00 [facility] Influenza Virus 2020-08-15 Completed [facility] y of [facility] .5 mL 00:00:00 [facility] Influenza Virus 2020-08-15 Completed [facility] y of [facility] .5 mL 00:00:00 [facility] Influenza Virus 2020-08-15 Completed [facility] y of [facility] .5 mL 00:00:00 [facility] Influenza Virus 2020-08-15 Completed [facility]it y of [facility] .5 mL 00:00:00 [facility] 6+ MO [facility] Influenza Virus 2020-08-15 Completed Universit y of Vaccine Quad .5 mL 00:00:00 [facility] 6+ MO [facility] Influenza Virus 2020-08-15 Completed Universit y of [facility] .5 mL 00:00:00 [facility] 6+ MO [facility] Influenza Virus 2020-08-15 Completed Universit y of [facility] .5 mL 00:00:00 [facility] 6+ MO [facility] Influenza Virus Unknown Completed Universit y of [facility] .5 mL [facility] 6+ MO Branch (FLUZONE/FLULAVAL/F LUARIX) Rho (d) Immune Unknown Completed [facility] Globulin [facility] Rho (d) Immune Unknown Completed [facility] Globulin [facility] TDAP Unknown Completed [facility] Rho (d) Immune Unknown Completed [facility] Globulin [facility] HPV9 Unknown Completed [facility] MMR Unknown Completed [facility] Varicella Unknown Completed [facility] of (varivax)(chicken [place] [facility] HPV9 Unknown Completed [facility] Vital Signs Vital Name Observation Time Observation Value Comments Source Systolic blood 2023-04-02 00:00:00 100 mm[Hg] Univer sity of pressure [facility] Diastolic blood 2023-04-02 00:00:00 57 mm[Hg] Unive rsity of pressure [facility] Heart rate 2023-04-02 00:00:00 75 /min Universi ty of [facility] Respiratory rate 2023-04-02 00:00:00 18 /min Univ ersity of [facility] Oxygen saturation in 2023-04-02 00:00:00 98 /min University of Arterial blood by [place] [employer] P[facility] oxim[facility] Body temperature 2023-04-01 23:21:00 36.94 [facility] Body height 2023-04-01 21:14:[address] [facility] Body weight 2023-04-01 21:14:00 68.04 kg [facility] BMI 2023-04-01 21:14:00 23[facility] 2023-04-01 21:16:00 94 mm[Hg] Univer sity of pressure [facility] Diastolic blood 2023-04-01 21:16:00 55 mm[Hg] Unive rsity of pressure [facility] Heart rate 2023-04-01 21:16:00 70 /min Universi ty of [facility] Respiratory rate 2023-04-01 21:16:00 16 /min Univ ersity of [facility] Oxygen saturation in 2023-04-01 21:16:00 98 /min University of Arterial blood by [employer] [facility] Pulse oxim[facility] Branch Systolic blood 2023-01-07 20:46:00 148 mm[Hg] Univer sity of pressure [facility] Diastolic blood 2023-01-07 20:46:00 78 mm[Hg] Unive rsity of pressure [facility] Heart rate 2023-01-07 20:46:00 71 /min Universi ty [facility] Body temperature 2023-01-07 20:46:00 37.22 Matilda Univ ersity of [facility] Respiratory rate 2023-01-07 20:46:00 18 /min Univ ersity of [facility] Body height 2023-01-07 20:46:00 170.2 cm Universi ty of [facility] Body weight 2023-01-07 20:46:00 68.04 kg Universi ty of [facility] BMI 2023-01-07 20:46:00 23.49 kg/m2 Universi ty of [facility] Oxygen saturation in 2023-01-07 20:46:00 100 /min University of Arterial blood by [place] [employer] [facility] Pulse [facility] Systolic blood 2021-09-18 15:54:00 119 mm[Hg] Univer sity of pressure [facility] Diastolic blood 2021-09-18 15:54:00 72 mm[Hg] Unive rsity of pressure [facility] Heart rate 2021-09-18 15:54:00 101 /min Universi ty of [facility] Body temperature 2021-09-18 15:54:00 36.78 Matilda Univ ersity of [facility] Respiratory rate 2021-09-18 15:54:00 16 /min Univ ersity of [facility] Body height 2021-09-18 15:54:00 170.2 cm Universi ty of [facility] Body weight 2021-09-18 15:54:00 68.04 kg Universi ty of [facility] BMI 2021-09-18 15:54:00 23.49 kg/m2 Universi ty of [facility] Oxygen saturation in 2021-09-18 15:54:00 100 /min University of Arterial blood by [facility] ruben Pulse oximetry Branch Systolic blood 2021-04-19 20:52:00 113 mm[Hg] Univer sity of pressure [facility] Diastolic blood 2021-04-19 20:52:00 83 mm[Hg] Unive rsity of pressure [facility] Heart rate 2021-04-19 20:52:00 89 /min Universi ty of [facility] Body temperature 2021-04-19 20:52:00 36.67 Matilda Univ ersity of [facility] Respiratory rate 2021-04-19 20:52:00 22 /min Univ ersity of [facility] Body height 2021-04-19 20:52:00 170.2 cm Universi ty of [facility] Body weight 2021-04-19 20:52:00 70.58 kg Universi ty of [facility] BMI 2021-04-19 20:52:00 24.37 kg/m2 Universi ty of [facility] Systolic blood 2021-03-06 16:31:00 112 mm[Hg] Univer sity of pressure [facility] Diastolic blood 2021-03-06 16:31:00 82 mm[Hg] Unive rsity of pressure [facility] Heart rate 2021-03-06 16:31:00 67 /min Universi ty of [facility] Body temperature 2021-03-06 16:31:00 36.33 Matilda Univ ersity of [facility] Respiratory rate 2021-03-06 16:31:00 16 /min Univ ersity of [facility] Body height 2021-03-06 16:31:00 170.2 cm Universi ty of [facility] Body weight 2021-03-06 16:31:00 70.818 kg Universi ty of [facility] BMI 2021-03-06 16:31:00 24.45 kg/m2 Universi ty of [facility] Systolic blood 2021-02-27 20:17:00 127 mm[Hg] Univer sity of pressure [facility] Diastolic blood 2021-02-27 20:17:00 77 mm[Hg] Unive rsity of pressure [facility] Heart rate 2021-02-27 20:17:00 82 /min Universi ty of [facility] Body temperature 2021-02-27 20:17:00 36.33 Matilda Univ ersity of [facility] Respiratory rate 2021-02-27 20:17:00 16 /min Univ ersity of [facility] [facility] Body height 2021-02-27 20:17:00 170.2 cm [facility] Body weight 2021-02-27 20:17:00 70.903 kg [facility] BMI 2021-02-27 20:17:00 24.48 kg/m2 [facility] Body temperature 2021-02-24 18:12:00 36.78 Matilda [facility] Respiratory rate 2021-02-24 18:12:00 16 /min [facility] Body height 2021-02-24 18:12:00 170.2 cm [facility] Body weight 2021-02-24 18:12:00 70.449 kg [facility] BMI 2021-02-24 18:12:00 24.33 kg/m2 [facility] Systolic blood 2021-02-24 18:12:00 115 mm[Hg] [facility] Diastolic blood 2021-02-24 18:12:00 80 mm[Hg] Unive [facility]ity [facility] Heart rate 2021-02-24 18:12:00 69 /min [facility] Systolic blood 2021-02-21 20:00:00 109 mm[Hg] [facility] Diastolic blood 2021-02-21 20:00:00 71 mm[Hg] Unive rsity [facility] Heart rate 2021-02-21 20:00:00 83 /min [facility] Respiratory rate 2021-02-21 20:00:00 18 /min Univ ers[facility] of [facility] Oxygen saturation in 2021-02-21 20:00:00 99 /min [facility] Body temperature 2021-02-21 18:17:00 36.67 Matilda [facility] Body weight 2021-02-21 18:17:00 70.308 kg [facility] BMI 2021-02-21 18:17:00 24.28 kg/m2 [facility] Systolic blood 2021-02-13 16:10:00 108 mm[Hg] Univer sity of pressure [facility] Diastolic blood 2021-02-13 16:10:00 74 mm[Hg] Unive rsity of pressure [facility] Heart rate 2021-02-13 16:10:00 70 /min [facility] Body temperature 2021-02-13 16:10:00 36.28 Matilda [facility] Respiratory rate 2021-02-13 16:10:00 16 /min Univ ersity of [facility] Body height 2021-02-13 16:10:00 170.2 cm [facility] Body weight 2021-02-13 16:10:00 72.32 kg [facility] BMI 2021-02-13 16:10:00 24.97 kg/m2 [facility] Systolic blood 2021-02-02 16:16:00 117 mm[Hg] [facility] Diastolic blood 2021-02-02 16:16:00 79 mm[Hg] [facility]ive [facility] Heart rate 2021-02-02 16:16:00 76 /min [facility] Respiratory rate 2021-02-02 16:16:00 18 /min Univ ers[facility] of [facility] Oxygen saturation in 2021-02-02 16:16:00 100 /min [facility] Body temperature 2021-02-02 14:01:00 37.72 Matilda [facility] Body weight 2021-02-02 14:01:00 75.751 kg [facility] BMI 2021-02-02 14:01:00 26.16 kg/m2 [facility] Systolic blood 2021-01-26 21:21:00 116 mm[Hg] [facility] Diastolic blood 2021-01-26 21:21:00 74 mm[Hg] [facility]ive [facility]ity [facility] Heart rate 2021-01-26 21:21:00 96 /min [facility] Body temperature 2021-01-26 21:21:00 36.83 Matilda [facility] Respiratory rate 2021-01-26 21:21:00 16 /min Univ ersity of [facility] Body height 2021-01-26 21:21:00 170.2 cm [facility] Body weight 2021-01-26 21:21:00 75.892 kg [facility] BMI 2021-01-26 21:21:00 26.20 kg/m2 [facility] Systolic blood 2021-01-20 13:39:00 102 mm[Hg] [facility] Diastolic blood 2021-01-20 13:39:00 71 mm[Hg] [facility] Heart rate 2021-01-20 13:39:00 99 /min [facility] Respiratory rate 2021-01-20 13:39:00 17 /min [facility] Oxygen saturation in 2021-01-20 13:39:00 99 /min [facility] Arterial blood by [place] [employer] [facility] Body temperature 2021-01-20 10:00:00 36.67 Matilda [facility] Body height 2021-01-17 16:55:00 170.2 cm [facility] Body weight 2021-01-17 16:55:00 78.472 kg [facility] BMI 2021-01-17 16:55:00 27.09 kg/m2 [facility] Systolic blood 2021-01-16 19:23:00 122 mm[Hg] [facility] Diastolic blood 2021-01-16 19:23:00 71 mm[Hg] [facility] Heart rate 2021-01-16 19:23:00 80 /min [facility] Body temperature 2021-01-16 19:23:00 36.22 Matilda [facility] Respiratory rate 2021-01-16 19:23:00 16 /min [facility] Body height 2021-01-16 19:23:00 170.2 cm [facility] Body weight 2021-01-16 19:23:00 78.075 kg [facility] BMI 2021-01-16 19:23:00 26.96 kg/m2 [facility] Systolic blood 2021-01-10 14:00:00 115 mm[Hg] [facility] Diastolic blood 2021-01-10 14:00:00 64 mm[Hg] [facility] Heart rate 2021-01-10 14:00:00 93 /min [facility] Body temperature 2021-01-10 14:00:00 36.28 Matilda [facility] Oxygen saturation in 2021-01-10 14:00:00 100 /min [facility] blood by [place] [facility] Respiratory rate 2021-01-10 11:40:00 18 /min [facility] Body height 2021-01-05 09:30:00 170.2 cm [facility] Body weight 2021-01-05 09:30:00 82.192 kg [facility] BMI 2021-01-05 09:30:00 28.38 kg/m2 [facility] Systolic blood 2020-12-26 15:21:00 117 mm[Hg] [facility] Diastolic blood 2020-12-26 15:21:00 69 mm[Hg] [facility] Heart rate 2020-12-26 15:21:00 67 /min [facility] Body temperature 2020-12-26 15:21:00 36.11 Matilda [facility] Respiratory rate 2020-12-26 15:21:00 16 /min [facility] Body height 2020-12-26 15:21:00 170.2 cm [facility] Body weight 2020-12-26 15:21:00 77.82 kg [facility] BMI 2020-12-26 15:21:00 26.87 kg/m2 [facility] Systolic blood 2020-12-23 20:15:00 113 mm[Hg] [facility] Diastolic blood 2020-12-23 20:15:00 42 mm[Hg] [facility] Heart rate 2020-12-23 20:15:00 72 /min [facility] Body temperature 2020-12-23 20:15:00 36.89 Matilda [facility] Respiratory rate 2020-12-23 20:15:00 18 /min [facility] of [facility] Body height 2020-12-23 20:15:00 170.2 cm [facility] Body weight 2020-12-23 20:15:00 76.023 kg [facility] BMI 2020-12-23 20:15:00 26.25 kg/m2 [facility] Oxygen saturation in 2020-12-23 20:15:00 100 /min [facility] Systolic blood 2020-12-23 04:31:00 113 mm[Hg] [facility] Diastolic blood 2020-12-23 04:31:00 68 mm[Hg] [facility]ive [facility] Heart rate 2020-12-23 04:31:00 63 /min [facility] Body temperature 2020-12-23 04:31:00 36.83 Matilda [facility] Respiratory rate 2020-12-23 04:31:00 18 /min [facility] Body height 2020-12-23 04:31:00 170.2 cm [facility] Body weight 2020-12-23 04:31:00 74.707 kg [facility] BMI 2020-12-23 04:31:00 25.79 kg/m2 [facility] Systolic blood 2020-12-05 16:56:00 132 mm[Hg] [facility] Diastolic blood 2020-12-05 16:56:00 82 mm[Hg] [facility] Heart rate 2020-12-05 16:56:00 76 /min [facility] Body temperature 2020-12-05 16:56:00 36.5 Matilda [facility] Respiratory rate 2020-12-05 16:56:00 16 /min [facility] Body height 2020-12-05 16:56:00 170.2 cm [facility] Body weight 2020-12-05 16:56:00 74.889 kg [facility] BMI 2020-12-05 16:56:00 25.86 kg/m2 [facility] Systolic blood 2020-12-05 16:56:00 132 mm[Hg] [facility]iver [facility]ity [facility] Diastolic blood 2020-12-05 16:56:00 82 mm[Hg] [facility]ive [facility]ity of [facility] Heart rate 2020-12-05 16:56:00 76 /min [facility] Body temperature 2020-12-05 16:56:00 36.5 Matilda [facility] Respiratory rate 2020-12-05 16:56:00 16 /min [facility] Body height 2020-12-05 16:56:00 170.2 cm [facility] Body weight 2020-12-05 16:56:00 74.889 kg [facility] BMI 2020-12-05 16:56:00 25.86 kg/m2 [facility] Systolic blood 2020-11-07 16:24:00 105 mm[Hg] [facility] Diastolic blood 2020-11-07 16:24:00 65 mm[Hg] [facility] Heart rate 2020-11-07 16:24:00 73 /min [facility] Body temperature 2020-11-07 16:24:00 36.33 Matilda [facility] Respiratory rate 2020-11-07 16:24:00 16 /min [facility] Body height 2020-11-07 16:24:00 170.2 cm [facility] Body weight 2020-11-07 16:24:00 71.442 kg [facility] BMI 2020-11-07 16:24:00 24.67 kg/m2 [facility] Systolic blood 2020-11-07 16:24:00 105 mm[Hg] [facility] Diastolic blood 2020-11-07 16:24:00 65 mm[Hg] Unive [facility]ity of [facility] Heart rate 2020-11-07 16:24:00 73 /min [facility] Body temperature 2020-11-07 16:24:00 36.33 Matilda [facility] Respiratory rate 2020-11-07 16:24:00 16 /min [facility] Body height 2020-11-07 16:24:00 170.2 cm [facility] Body weight 2020-11-07 16:24:00 71.442 kg [facility] BMI 2020-11-07 16:24:00 24.67 kg/m2 [facility] Systolic blood 2020-10-10 16:53:00 115 mm[Hg] Univer [facility]ity of [facility] Diastolic blood 2020-10-10 16:53:00 68 mm[Hg] Unive rsity of [facility] Heart rate 2020-10-10 16:53:00 64 /min [facility] Body temperature 2020-10-10 16:53:00 35.72 Matilda [facility] Respiratory rate 2020-10-10 16:53:00 16 /min [facility] Body height 2020-10-10 16:53:00 170.2 cm [facility] Body weight 2020-10-10 16:53:00 67.858 kg [facility] BMI 2020-10-10 16:53:00 23.43 kg/m2 [facility] Systolic blood 2020-10-10 16:53:00 115 mm[Hg] [facility] Diastolic blood 2020-10-10 16:53:00 68 mm[Hg] [facility]ive [facility] of [facility] Heart rate 2020-10-10 16:53:00 64 /min [facility] Body temperature 2020-10-10 16:53:00 35.72 Matilda [facility] Respiratory rate 2020-10-10 16:53:00 16 /min [facility] Body height 2020-10-10 16:53:00 170.2 cm [facility] Body weight 2020-10-10 16:53:00 67.858 kg [facility] BMI 2020-10-10 16:53:00 23.43 kg/m2 [facility] Systolic blood 2020-09-12 16:09:00 103 mm[Hg] [facility]iver [facility]ity [facility] Diastolic blood 2020-09-12 16:09:00 69 mm[Hg] Unive rsity of [facility] Heart rate 2020-09-12 16:09:00 59 /min [facility] Body temperature 2020-09-12 16:09:00 36.06 Matilda [facility] Respiratory rate 2020-09-12 16:09:00 16 /min [facility] Body height 2020-09-12 16:09:00 170.2 cm [facility] Body weight 2020-09-12 16:09:00 67.767 kg [facility] BMI 2020-09-12 16:09:00 23.40 kg/m2 [facility] Systolic blood 2020-09-12 16:09:00 103 mm[Hg] Univer sity of pressure [facility] Diastolic blood 2020-09-12 16:09:00 69 mm[Hg] Unive rsity of pressure [facility] Heart rate 2020-09-12 16:09:00 59 /min [facility] Body temperature 2020-09-12 16:09:00 36.06 Matilda [facility] Respiratory rate 2020-09-12 16:09:00 16 /min [facility] Body height 2020-09-12 16:09:00 170.2 cm [facility] Body weight 2020-09-12 16:09:00 67.767 kg [facility] BMI 2020-09-12 16:09:00 23.40 kg/m2 [facility] Systolic blood 2020-08-15 15:16:00 127 mm[Hg] Univer sity of pressure [facility] Diastolic blood 2020-08-15 15:16:00 82 mm[Hg] Unive rsity of pressure [facility] Heart rate 2020-08-15 15:16:00 78 /min [facility] Body temperature 2020-08-15 15:16:00 36.78 Matilda [facility] Respiratory rate 2020-08-15 15:16:00 16 /min [facility] Body height 2020-08-15 15:16:00 170.2 cm [facility] Body weight 2020-08-15 15:16:00 68.584 kg [facility] BMI 2020-08-15 15:16:00 23.68 kg/m2 [facility] Procedures Procedure Date / Time Performing Clinician Source Performed US OVARY TORSION 2023-04-01 23:11:39 Angel Lamb [facility] CT ABDOMEN PELVIS W 2023-04-01 22:41:[address] [facility] ASSIGN[facility] OF BENEFITS 2023-04-01 22:22:28 [facility] CONSENT/REFUSAL FOR 2023-04-01 22:22:01 Doctor Samir [facility] DIAGNOSIS AND TREATMENT [facility] LIPASE 2023-04-01 21:55:00 Angel Lamb [facility] COMP. METABOLIC PANEL 2023-04-01 21:55:00 Angel Lamb [facility] ([id number]) [facility] CBC WITH DIFF 2023-04-01 21:55:00 Angel Lamb [facility] URINALYSIS 2023-04-01 21:55:00 Angel Lamb [facility] POCT TEST 2023-04-01 21:52:00 Angel Lamb [facility] POCT TEST 2023-01-07 21:40:00 Monica Krishnan [facility] CONSENT/REFUSAL FOR 2023-01-07 20:42:26 Doctor Samir [facility] DIAGNOSIS AND TREATMENT [facility] POCT TEST 2021-09-18 16:03:00 Gary Rene [facility] URINALYSIS 2021-09-18 16:02:00 Gary Rene [facility] CONSENT/REFUSAL FOR 2021-09-18 15:49:27 Doctor Samir [facility] DIAGNOSIS AND TREATMENT [facility] POCT URINALYSIS W/O 2021-04-19 21:06:00 Charu Servin [facility] SPECIFIC GRAVITY [facility] POCT URINALYSIS W/O 2021-03-27 18:21:00 Татьяна Ledesma [facility] SPECIFIC GRAVITY [facility] GARDASIL 9 (HPV 9V) 2021-03-06 16:45:06 Dionicio Cano [facility] VACCINE [facility] CBC WITH DIFF 2021-02-21 19:08:00 Meredith Patiño [facility] URINALYSIS 2021-02-21 18:26:00 Meredith Patiño [facility] POCT TEST 2021-02-21 18:26:00 Meredith Patiño [facility] CONSENT/REFUSAL FOR 2021-02-21 18:09:19 Doctor Unassigned, [facility] DIAGNOSIS AND TREATMENT [facility] CT ABDOMEN PELVIS W 2021-02-02 15:38:00 [facility] CONTRAST [facility] COMP. METABOLIC PANEL 2021-02-02 14:24:00 [facility] ([id number]) [facility] CBC WITH DIFF 2021-02-02 14:24:00 [facility] URINALYSIS 2021-02-02 14:15:00 [facility] CONSENT/REFUSAL FOR 2021-02-02 13:51:54 Doctor Unassigned, [facility] 2021-01-20 14:59:58 Erin [facility] SECOND AND THIRD 2021-01-19 20:30:00 Dionicio Cano [facility] TRIMESTER ULTRASOUND Medical [facility] NON-STRESS TEST 2021-01-19 18:45:12 Erin [facility] NON-STRESS TEST 2021-01-18 18:46:49 Thalia [facility] >14 WEEKS US 2021-01-17 18:41:35 [facility]O PANEL 2021-01-17 18:22:00 Shannon Leon [facility] HB ABO GROUPING 2021-01-17 18:22:00 Shannon Leon [facility] HB HEMOGLOBIN 2021-01-17 18:22:00 [facility] RHO (D) IMMUNE GLOBULIN 2021-01-17 18:22:00 [facility] PELVIS > 14 2021-01-17 14:54:31 Karolina Mazariegos [facility] COVID-19 (ID NOW RAPID 2021-01-17 14:25:00 Karolina Mazariegos [facility] TESTING) Medical Branch LAB ONLY COVID 2021-01-17 14:25:00 Amna Mazariegosen Carlos [facility] INTERPRETATION [facility] CBC WITH DIFF 2021-01-17 14:15:00 Amna Mazariegosen [facility] HB ABO GROUPING 2021-01-17 14:00:[address] [facility] CONSENT/REFUSAL FOR 2021-01-17 11:06:36 Doctor Unassigned, [facility] DIAGNOSIS AND TREATMENT [facility] POCT URINALYSIS 2021-01-16 19:27:00 Dionicio Cano [facility] TDAP VACCINE, >11 YRS, IM 2021-01-16 19:18:11 Dionicio Cano [facility] ANTI-D R/O PANEL 2021-01-09 06:00:00 Mariella Turner [facility] HB ABO GROUPING 2021-01-09 06:00:00 Mariella [facility] NON-STRESS TEST 2021-01-08 21:30:27 Margo Madera [facility] ANTI-D R/O PANEL 2021-01-05 19:45:00 Peter [facility] HB ABO GROUPING 2021-01-05 19:45:00 Peter [facility] RHO (D) IMMUNE GLOBULIN 2021-01-05 19:45:00 Ankit Flood [facility] US PELVIS > 14 2021-01-05 15:28:26 Adum, Jennifer Hebert [facility] WITH TRANSVAGINAL [facility] ADC CLC OR LCC ONLY - WET 2021-01-05 14:13:00 Adum, Jennifer [place] [facility] [place] PREP [facility] GC & CHLAMYDIA AMPLIFIED 2021-01-05 14:13:00 Adum, Jennifer [facility] [place] ASSAY [facility] GROUP B STREPTOCOCCUS BY 2021-01-05 14:13:00 Adum, Jennifer L [facility] PCR Medical Branch COVID-19 (MOLECULAR 2021-01-05 14:13:00 Adum, Jennifer Moreno [facility] TESTING Medical Branch NUCLEIC ACID AMPLIFICATION) LAB ONLY COVID 2021-01-05 14:13:00 Adum, Jennifer Moreno [facility] INTERPRETATION Medical Branch CBC WITH DIFF 2021-01-05 11:55:00 [facility] / INR 2021-01-05 11:55:00 Adum, [facility] ACTIVATED PARTIAL 2021-01-05 11:55:00 Adum, Jennifer Moreno [facility] THRMPLAS RC Medical Branch HB ABO GROUPING 2021-01-05 11:55:00 Adum, Jennifer [facility] HB HEMOGLOBIN 2021-01-05 11:55:00 Alisha Green [facility] STAINS Medical Branch COVID-19 (ID NOW RAPID 2021-01-05 11:55:00 Adum, Jennifer [facility] TESTING) Medical Branch LAB ONLY COVID 2021-01-05 11:55:00 Adum, Jennifer Moreno [facility] INTERPRETATION Medical Branch ASSIGNMENT OF BENEFITS 2021-01-05 09:22:36 Doctor Unassigned, [facility] NOTICE OF PRIVACY 2021-01-05 09:22:22 Doctor Samir, [facility] PRACTICES [facility] CONSENT/REFUSAL FOR 2021-01-05 09:22:08 Doctor Samir [facility] DIAGNOSIS AND TREATMENT [facility] HOSPITAL ADMISSION 2021-01-05 06:01:00 Doctor Samir [facility] POCT URINALYSIS 2020-12-26 15:29:00 Dionicio Cano [facility] Medical Branch CONSENT/REFUSAL FOR 2020-12-23 20:10:03 Doctor Samir [facility] DIAGNOSIS AND TREATMENT [facility] ASSIGNMENT OF BENEFITS 2020-12-23 20:07:12 Doctor Unassigned, [facility] US PELVIS > 14 2020-12-23 16:46:39 Fish, Gary Uni versity [facility] HB ABO GROUPING 2020-12-23 06:05:00 Jose [facility] o f [facility] RHO (D) IMMUNE GLOBULIN 2020-12-23 06:05:00 Gary Garcia [facility] ASSIGNMENT OF BENEFITS 2020-12-23 04:09:17 Doctor Unassigned, [facility] [place] [facility] CONSENT/REFUSAL FOR 2020-12-23 04:03:26 Doctor Jus Dawson [facility] CONSENT/REFUSAL FOR 2020-12-23 04:03:24 Doctor UnaJus hansen [facility] DIAGNOSIS [facility] POCT URINALYSIS 2020-12-05 00:00:00 Dionicio Cano [facility] POCT URINALYSIS 2020-11-07 00:00:00 Dionicio Cano [facility] POCT URINALYSIS 2020-10-10 00:00:00 Dionicio Cano [facility] POCT URINALYSIS 2020-09-12 00:00:00 Dionicio Cano [facility] FLU VACC ([id number]), 6+ 2020-08-15 16:16:06 Dionicio Cano [facility] MONTHS, IM, QUAD Medical Branch ASSIGNMENT OF BENEFITS 2020-08-15 14:35:20 [facility] PO[facility] TEST 2020-08-15 00:00:00 Татьяна Ledesma [facility] POCT URINALYSIS W/O 2020-08-15 00:00:00 Татьяна Ledesma [facility] SPE[facility]IFIC [facility]RAV[facility] Encounters Start End Encounter Admission Attending Care Care Encounter Source Date/Time Date/Time Type Type Clinicians Facility Department ID 2021-09-26 Emergency [facility] [id number] Univers 09:23:15 ity of [facility] 2021-09-24 Emergency [facility] [id number] Univers 09:32:21 ity of [facility] 2021-09-24 Emergency [facility] [id number] Univers 05:08:17 ity of [facility] 2021-09-24 Outpatient P [facility] [id number] Univers 01:47:59 ity of [facility] 2021-09-24 Outpatient P [facility] [id number] Univers 01:47:50 ity of [facility] 2021-09-24 Outpatient P [facility] [id number] Univers 01:38:24 ity of [facility] 2021-09-23 Emergency [facility] [id number] Univers 22:58:55 ity of [facility] 2021-09-23 Outpatient P [facility] [id number] Univers 22:58:55 ity of [facility] 2021-09-23 Outpatient P [facility] [id number] Univers 20:40:02 ity of [facility] 2021-09-23 Outpatient P [facility] [id number] Univers 20:37:36 ity of [facility] 2021-09-23 Emergency [facility] [id number] Univers 20:27:33 ity of [facility] 2021-09-23 Outpatient P [facility] [id number] Univers 20:27:33 ity of [facility] 2023-04-11 2023-04-11 Telephone [facility] 1.2.840.114 [id number] Univers 00:00:00 00:00:00 Татьяна Portillo WAREHOUSE TRAINER 350.1.13.10 ity of [facility] 4.2.7.2.686 [place] as MATERNAL [phone] Med ical & CHILD [address] [place] [address] 2023-04-08 2023-04-08 Patient Doctor RENITA 1.2.840.114 [id number] Univers 00:00:00 00:00:00 Secure Msg Unassigned, JOSE 350.1.13.10 ity of [place] [facility] 4.2.7.2.686 [place] as [phone] [address] 2023-04-01 2023-04-01 Emergency X ZAINAB, [facility] ERT [id number] Univers 16:17:00 20:00:00 ANGEL ity [facility] 2023-04-01 2023-04-[address] [facility] 1.2.840.114 10 [id number] Univers 16:17:00 20:00:00 Angel B HEALTH 350.1.13.10 it y of [place] 4.2.7.2.686 [facility] [id number] [address] ([facility]) 2023-04-01 2023-04-01 Nurse Nurse, [facility] 1.2 .840.114 [id number] Univers 16:00:00 16:51:08 Visit Unknown, Attending [place] 350.1.13.10 ity of Dick Sidhu 4.2.7.2.686 [facility] [phone] [address] [place] 2023-04-01 2023-04-01 Outpatient R NAHUM [facility] [id number] Univers 16:00:00 16:00:00 DICK ity [facility] 2023-01-14 2023-01-14 RefMINO Silvestre 1.2.840.114 [id number] Univers 00:00:00 00:00:00 Monica PEDIATRIC 350.1.13.10 ity of [place] [phone] [facility] PRIMARY [address] [place] [address] [facility] 2023-01-07 2023-01-07 Emergency X TERESO, [facility] ERT [id number] Univers 14:47:00 16:45:00 MONICA ity [facility] 2023-01-07 2023-01-07 [facility] 1.2.840.114 [id number] Univers 14:47:00 16:45:00 [facility] 350.1.13.10 i ty of [place] 4.2.7.2.686 [facility] [phone] [address] 2021-12-21 2021-12-21 Yolis Cano NYJOSHUA 1.2.840.114 [id number] Univers 00:00:00 00:00:00 Dionicio Stephens WAREHOUSE TRAINER 350.1.13.10 ity of REGIONAL 4.2.7.2.686 [place] as MATERNAL [id number] Med ical & CHILD [address] [place] [address] 2021-10-25 2021-10-25 [facility] [id number] Univers 13:00:00 13:00:00 CHARU oneal [facility] 2021-09-26 2021-09-26 [facility] [id number] Univers 14:00:00 14:00:00 CHARU oneal [facility] 2021-09-19 2021-09-19 Outpatient R [facility] [id number] Univers 14:00:00 14:00:00 ity [facility] 2021-09-18 2021-09-18 Emergency [facility] 1.2.571.368 [id number] Univers 10:56:00 11:51:00 Gary Brady 350.1.13.10 i ty [facility] 4.2.7.2.686 [place] [id number] [address] 2021-08-07 2021-08-07 Outpatient R [facility] [id number] Univers 14:00:00 14:00:00 ity [facility] 2021-05-02 2021-05-02 [facility] 1.2.840.114 [id number] Univers 00:00:00 00:00:00 Dionicio Stephens WAREHOUSE TRAINER 350.1.13.10 ity of [facility] 4.2.7.2.686 [place] as MATERNAL [id number] Med ical & CHILD [address] [place] [address] 2021-04-21 2021-04-21 Telephone [facility] 1.2.840.114 [id number] Univers 00:00:00 00:00:00 Charu Jimenez WAREHOUSE TRAINER 350.1.13.10 it y of REGIONAL 4.2.7.2.686 [place] as MATERNAL [id number] Med ical & CHILD [address] [place] [address] 2021-04-19 2021-04-19 Office [facility] 1.2.104.502 [id number] Univers 15:40:46 15:55:49 Visit Charu Jimenez WAREHOUSE TRAINER 350.1.13.10 it y of REGIONAL 4.2.7.2.686 [place] as MATERNAL [id number] Med ical & CHILD [address] [place] [address] 2021-04-19 2021-04-19 Outpatient R GARETH [facility] [id number] Univers 15:45:00 15:45:00 CHARU oneal [facility] 2021-04-12 2021-04-12 [facility] [id number] Univers 15:15:00 15:15:00 KAREENAYE oneal o [facility] 2021-04-10 2021-04-10 Outpatient R JEROME [facility] [id number] Univers 10:30:00 10:30:00 DIONICIO oneal o [facility] 2021-03-29 2021-03-29 [facility] 1.2.960.155 [id number] Univers 00:00:00 00:00:00 Dionicio R WAREHOUSE TRAINER 350.1.13.10 ity of REGIONAL 4.2.7.2.686 [place] as MATERNAL [phone] [facility] ical & CHILD [address] [place] [address] 2021-03-27 2021-03-27 [employer] Worker Lab, [facility] 1.2.840. 114 [id number] Univers 13:08:27 13:21:48 Visit Татьяна Ledesma WAREHOUSE TRAINER 350.1.13. 10 ity of REGIONAL 4.2.7.2.686 [place] as MATERNAL [phone] [facility] ical & CHILD [address] [place] [address] 2021-03-27 2021-03-27 Outpatient R MARISOL [facility] [id number] Univers 13:15:00 13:15:00 ТАТЬЯНА todd [facility] 2021-03-27 2021-03-27 Telephone Ang [facility] 1.2.726.398 [id number] Univers 00:00:00 00:00:00 Patient WAREHOUSE TRAINER 350.1.13.10 it y of Does Not [place].2.686 [place] MATERNAL [id number] Med ical & CHILD [address] [place] [address] 2021-03-15 2021-03-15 1.2.840.1 1.2.840.114 [id number] Univers 00:00:00 00:00:00 Encounter 50719.1.1 350.1.13.10 ity of 3.104.2.7 [place].2.696 [place] .[id number] 570 [facility] 2021-03-06 2021-03-06 Office [facility] 1.2.840.114 [id number] Univers 11:04:05 11:59:30 Visit [facility] R WAREHOUSE TRAINER 350.1.13.10 ity of REGIONAL 4.2.7.2.686 [place] as MATERNAL [id number] [facility] & CHILD [address] [place] [address] 2021-03-06 2021-03-06 Outpatient R [facility] [id number] Univers 11:00:00 11:00:00 DIONICIO oneal o [facility] 2021-02-27 2021-02-27 Office [facility] 1.2.840.114 [id number] Univers 15:01:47 15:28:55 [facility] WAREHOUSE TRAINER 350.1.13.10 ity of REGIONAL 4.2.7.2.686 [place] as MATERNAL [phone] [address] 2021-02-27 2021-02-27 Outpatient R [facility] [id number] Univers 15:15:00 15:15:00 DIONICIO oneal o [facility] 2021-02-24 2021-02-24 Office [facility] 1.2.975.536 [id number] Univers 13:00:10 13:40:36 Visit Татьяна Portillo WAREHOUSE TRAINER 350.1.13.10 ity of REGIONAL 4.2.7.2.686 [place] as MATERNAL [id number] [address] 2021-02-24 2021-02-24 [facility] [id number] Univers 13:00:00 13:00:00 ТАТЬЯНА oneal o f [facility] 2021-02-21 2021-02-21 Emergency [facility] 1.2.840.114 [id number] Univers 13:18:00 15:51:00 Meredith Brady 350.1.13.10 i ty of [place] 4.2.7.2.[address] [facility] [phone] [facility] [address] 2021-02-21 2021-02-21 Orders Doctor RENITA 1.2.840.114 [id number] Univers 00:00:00 00:00:00 Only Unassigned, JOSE 350.1.13.10 ity of [place] [facility] 4.2.7.2.686 [place] as [phone] [facility] [address] 2021-02-20 2021-02-20 Telephone Jerome [facility] 1.2.650.371 [id number] Univers 00:00:00 00:00:00 Dionicio Stephens WAREHOUSE TRAINER 350.1.13.10 ity of REGIONAL 4.2.7.2.686 [place] as MATERNAL [phone] Med ical & CHILD [address] [place] [address] 2021-02-20 2021-02-20 1.2.840.1 1.2.840.114 [id number] Univers 00:00:00 00:00:00 Encounter 58486.1.1 350.1.13.10 ity of 3.104.2.7 [place].2.696 [place] .2.669500 570 [facility] 2021-02-13 2021-02-13 Routine Jerome [facility] 1.2.840.114 [id number] Univers 11:03:59 11:28:25 Dionicio R WAREHOUSE TRAINER 350.1.13.10 ity of Visit REGIONAL 4.2.7.2.686 [place] as MATERNAL [id number] Med ical & CHILD [address] [place] [address] 2021-02-13 2021-02-13 Outpatient R JEROME NYJOSHUA [facility] [id number] Univers 11:00:00 11:00:00 DIONICIO oneal o f [facility] 2021-02-02 2021-02-02 Emergency Singer [facility] 1.2.936.584 [id number] Univers 07:58:00 11:11:00 Wilbert Brady 350.1.13.10 i ty of [place] 4.2.7.2.[address] [facility] [id number] [facility] [address] 2021-01-30 2021-01-30 Outpatient R JEROME [facility] [id number] Univers 12:45:00 12:45:00 DIONICIO oneal o f [facility] 2021-01-30 2021-01-30 1.2.840.1 1.2.840.114 82 [id number] Univers 00:00:00 00:00:00 Encounter 18006.1.1 350.1.13.10 ity of 3.104.2.7 4[place].2.696 [place] .2.231020 [address] [facility] [place] 2021 2021 1.2.840.1 1.2.840.114 82 [id number] Univers 00:00:00 00:00:00 Encounter 64306.1.1 350.1.13.10 ity of 3.104.2.7 [place].2.696 [place] .2.138078 570 [facility] 2021-01-26 2021-01-26 Routine [facility] 1.2.525.816 [id number] Univers 15:14:19 15:55:08 Татьяна Portillo WAREHOUSE TRAINER 350.1.13.10 ity of Visit REGIONAL 4.2.7.2.686 [place] as MATERNAL [id number] Med ical & CHILD [address] [place] [address] 2021-01-26 2021-01-26 Outpatient R MARISOL [facility] [id number] Univers 15:30:00 15:30:00 ТАТЬЯНА marmolejo [facility] 2021-01-25 2021-01-25 [facility]phone [facility] 1.2.153.419 [id number] Univers 00:00:00 00:00:00 Dionicio Stephens WAREHOUSE TRAINER 350.1.13.10 ity of REGIONAL 4.2.7.2.686 [place] as MATERNAL [phone] Med ical & CHILD [address] [place] [address] 2021-01-23 2021-01-23 Abstract Jerome [facility] 1.2.840.114 [id number] Univers 00:00:00 00:00:00 Roshunda R WAREHOUSE TRAINER 350.1.13.10 ity of [facility] 4.2.7.2.686 [place] as MATERNAL [phone] Med ical & CHILD [address] [place] [address] 2021-01-17 2021-01-20 Hospital Yair Karolinaavani MARAVILLA 1.2.840.114 [id number] Univers 05:07:00 10:36:00 Encounter Heidi Damonis Asim GARCIA 350.1.13 .10 ity of [facility] 4.2.7.2.686 [place] [phone] [facility] [address] 2021-01-19 2021-01-19 [employer] Worker 3, [facility] Room UNIVERSIT 1 .2.840.114 [id number] Univers 14:01:55 14:46:28 Visit [facility] 350.1.13.10 ity of CLINICS 4.2.7.2.[place] [id number] [facility] [address] 2021-01-19 2021-01-19 Outpatient P [facility] [id number] Univers 14:00:00 14:00:00 ity of [facility] 2021-01-17 2021-01-17 Orders Doctor MARAVILLA 1.2.840.114 [id number] Univers 00:00:00 00:00:00 Only Unassigned, JOSE 350.1.13.10 ity of [place] [facility] 4.2.7.2.686 [place] as [phone] [facility] [address] 2021-01-16 2021-01-16 [facility] 1.2.840.114 [id number] Univers 13:15:07 13:48:27 Rosbettya R WAREHOUSE TRAINER 350.1.13.10 ity of Visit [facility] 4.2.7.2.686 [place] as MATERNAL [id number] [facility] ica & CHILD [facility] 2021-01-16 2021-01-16 Outpatient [facility] [id number] Univers 13:15:00 13:15:00 ROSYOSEPHNDA ity o f [facility] 2021-01-13 2021-01-13 Telephone Jerome [facility] 1.2.489.263 [id number] Univers 00:00:00 00:00:00 Rosyosephnda R WAREHOUSE TRAINER 350.1.13.10 ity of [facility] 4.2.7.2.686 [place] as MATERNAL [phone] [facility] ical & CHILD [address] [place] [address] 2021-01-05 2021-01-10 Hospital Jennifer Hayes 1.2.840.11 [id number] Univers 03:20:00 11:00:00 Encounter Agnes Lord 350.1.13.10 ity [facility] 4.2.7.2.686 [place] [id number] [facility] [address] 2021-01-02 2021-01-02 Outpatient [facility] [id number] Univers 10:45:00 10:45:00 ROSYOSEPHNDA ity o f [facility] 2020-12-26 2020-12-26 [facility] 1.2.840.114 [id number] Univers 09:04:55 09:53:27 Kareenyosephnda R WAREHOUSE TRAINER 350.1.13.10 ity of Visit REGIONAL 4.2.7.2.686 [place] as MATERNAL [id number] [facility] & CHILD [address] [place] [address] 2020-12-26 2020-12-26 Outpatient [facility] [id number] Univers 09:15:00 09:15:00 ROSYOSEPHNDA ity o f [facility] 2020-12-23 2020-12-23 [facility] Gary Garcia [facility] 1.2.840.114 8 [id number] Univers 14:05:00 15:45:00 Encounter [place] 350.1.13.10 ity [facility] 4.2.7.2.686 [facility] [id number] [facility] [address] 2020-12-23 2020-12-23 [facility] Gary Garcia [facility] 1.2.840.114 [id number] Univers 09:53:04 14:04:00 Encounter [place] 350.1.13.10 ity of [place] 4.2.7.2.686 [facility] [id number] [facility] [address] 2020-12-22 2020-12-23 [facility] Gary Garcia [facility] 1.2.840.114 [id number] Univers 22:06:00 01:45:00 Encounter Jose Antonio 350.1.13.10 ity of [place] 4.2.7.2.686 [facility] [id number] [facility] [address] 2020-12-23 2020-12-23 Outpatient R GARY GARCIA [facility] [id number] Univers 00:00:00 00:00:00 ity of [facility] 2020-12-22 2020-12-22 Orders Doctor RENITA 1.2.840.114 [id number] Univers 00:00:00 00:00:00 Only Unassigned, JOSE 350.1.13.10 ity of [place] [facility] 4.2.7.2.686 [place] as [id number] [facility] [address] 2020-12-05 2020-12-05 Routine [facility] 1.2.840.114 [id number] 10:36:52 11:17:20 Roshunda R WAREHOUSE TRAINER 350.1.13.10 Visit [facility] 4.2.7.2.686 MATERNAL [id number] & CHILD [address] [place] [address] 2020-12-05 2020-12-05 Routine [facility] 1.2.840.114 [id number] Univers 10:36:52 11:17:20 Roshunda R WAREHOUSE TRAINER 350.1.13.10 ity of Visit REGIONAL 4.2.7.2.686 [place] as MATERNAL [id number] Med ical & CHILD [address] [place] [address] 2020-12-05 2020-12-05 Outpatient R JEROME [facility] [id number] Univers 10:45:00 10:45:00 ROSHUNDA ity o f [facility] 2020-11-21 2020-11-21 [employer] Worker 1, [facility] UNIVERSIT 1.2.840.11 4 [id number] 12:54:33 14:24:13 Visit [facility] Room Y HEALTH 350.1.13.10 CLINICS 4.2.7.2.686 [id number] [facility] 2020-11-21 2020-11-21 [employer] Worker 1, [facility] U[facility] Room UNIVERSIT 1 .2.840.114 [id number] Univers 12:54:33 14:24:13 Visit Lorie Fay [facility] HEALTH 350.1.13.10 ity of [facility] 4.2.7.2.686 [place] [id number] [address] 2020-11-21 2020-11-21 Outpatient P [facility] [id number] Univers 13:00:00 13:00:00 ity of [facility] 2020-11-21 2020-11-21 [facility] 1.2.840.114 [id number] 00:00:00 00:00:00 Roshunda R WAREHOUSE TRAINER 350.1.13.10 REGIONAL 4.2.7.2.686 MATERNAL [id number] & CHILD [address] [place] [address] 2020-11-21 2020-11-21 Ana [facility] 1.2.840.114 [id number] Univers 00:00:00 00:00:00 Roshunda R WAREHOUSE TRAINER 350.1.13.10 ity of [facility] 4.2.7.2.686 [place] as MATERNAL [id number] Med ical & CHILD [address] [place] [address] 2020-11-16 2020-11-16 Refill [facility] 1.2.840.114 [id number] Univers 00:00:00 00:00:00 Roshunda R WAREHOUSE TRAINER 350.1.13.10 ity of REGIONAL 4.2.7.2.686 [place] as MATERNAL [id number] Med ical & CHILD [address] [place] [address] 2020-11-16 2020-11-16 Refjing [facility] 1.2.840.114 [id number] 00:00:00 00:00:00 Roshunda R WAREHOUSE TRAINER 350.1.13.10 REGIONAL 4.2.7.2.686 MATERNAL [id number] & CHILD [address] [place] [address] 2020-11-07 2020-11-07 Routine Jerome [facility] 1.2.840.114 [id number] Univers 10:06:55 10:48:57 Roshunda R WAREHOUSE TRAINER 350.1.13.10 ity of Visit REGIONAL 4.2.7.2.686 [place] as MATERNAL [phone] [facility] & CHILD [address] [place] [address] 2020-11-07 2020-11-07 Routine Jerome [facility] 1.2.840.114 [id number] 87 10:06:55 10:48:57 Roshunda R WAREHOUSE TRAINER 350.1.13.10 Visit REGIONAL 4.2.7.2.686 MATERNAL [id number] & CHILD [address] [place] [address] 2020-11-07 2020-11-07 Outpatient R JEROME [facility] [id number] Univers 10:15:00 10:15:00 ANNYNDA itmaegan o [facility] 2020-10-10 2020-10-10 Routine Jerome [facility] 1.2.840.114 [id number] Univers 10:45:45 11:00:45 Roshunda R WAREHOUSE TRAINER 350.1.13.10 ity of Visit REGIONAL 4.2.7.2.686 [place] as MATERNAL [id number] [facility] & [address] 2020-10-10 2020-10-10 Routine Jerome NYJOSHUA 1.2.840.114 [id number] 10:45:45 11:00:45 Roshunda R WAREHOUSE TRAINER 350.1.13.10 Visit REGIONAL 4.2.7.2.686 MATERNAL [id number] & CHILD [address] [place] [address] 2020-10-10 2020-10-10 Outpatient R JEROME [facility] [id number] Univers 10:45:00 10:45:00 ROSHUNDA ity o f [facility] 2020-09-13 2020-09-13 [employer] Work[employer] Ultrasound, [facility] 1.2 .840.114 [id number] Univers 13:57:47 14:27:47 Visit Cynthia Enamorado WAREHOUSE TRAINER 350.1. 13.10 ity of REGIONAL 4.2.7.2.686 [place] as MATERNAL [id number] Med ical & CHILD [facility] 2020-09-13 2020-09-13 [employer] Worker Ultrasound, [facility] 1.2.840.114 [id number] 13:57:47 14:27:47 Visit [facility] WAREHOUSE TRAINER 350.1.13.10 REGIONAL 4.2.7.2.686 MATERNAL [id number] & CHILD 369 [facility] 2020-09-13 2020-09-13 Outpatient P [facility] [id number] Univers 14:00:00 14:00:00 ity of [facility] 2020-09-13 2020-09-13 Abstract Jerome NYJOSHUA 1.2.840.[id number] [facility] 00:00:00 00:00:00 Roshunda R WAREHOUSE TRAINER 350.1.13.10 ity of REGIONAL 4.2.7.2.686 [place] as MATERNAL [id number] [facility] ical & CHILD [address] [place] [address] 2020-09-13 2020-09-13 Abstract Jerome NYJOSHUA 1.2.840.114 [id number] 00:00:00 00:00:00 Roshunda R WAREHOUSE TRAINER 350.1.13.10 REGIONAL 4.2.7.2.686 MATERNAL [id number] & CHILD 107 [facility] 2020-09-12 2020-09-12 Routine Jerome NYJOSHUA 1.2.840.114 [id number] 10:54:14 11:28:58 Roshunda R WAREHOUSE TRAINER 350.1.13.10 Visit REGIONAL 4.2.7.2.686 MATERNAL [id number] & CHILD 107 [facility] 2020-09-12 2020-09-12 Routine Jerome NYJOSHUA 1.2.840.114 [id number] Univers 10:54:14 11:28:58 Roshunda R WAREHOUSE TRAINER 350.1.13.10 ity of Visit REGIONAL 4.2.7.2.686 [place] as MATERNAL [id number] Med ical & CHILD [address] [place] [address] 2020-09-12 2020-09-12 Outpatient R JEROME NYJOSHUA [facility] [id number] Univers 10:45:00 10:45:00 DIONICIO perdomoy o f [facility] 2020-08-22 2020-08-22 Telephone Pcp, [facility] 1.2.817.631 [id number] 00:00:00 00:00:00 Patient WAREHOUSE TRAINER 350.1.13.10 Does Not [facility] 4.2.7.2.686 Have A MATERNAL [id number] & CHILD [address] [place] [address] 2020-08-22 2020-08-22 Telephone Pcp, [facility] 1.2.499.833 [id number] Univers 00:00:00 00:00:00 Patient WAREHOUSE TRAINER 350.1.13.10 it y of Does Not [facility] 4.2.7.2.686 [place] MATERNAL [id number] [facility] & CHILD [address] [place] [address] 2020-08-15 2020-08-15 Initial Jerome [facility] 1.2.840.114 [id number] Univers 10:02:50 11:28:51 Dionicio R WAREHOUSE TRAINER 350.1.13.10 ity of Visit [facility] 4.2.7.2.686 [place] as MATERNAL [id number] [facility] & CHILD [address] [place] [address] 2020-08-15 2020-08-15 Outpatient R JEROME [facility] [id number] Univers 09:30:00 09:30:00 KAREENKATE perdomoy o f [facility] 2020-08-15 2020-08-15 Orders Doctor RENITA 1.2.840.114 [id number] Univers 00:00:00 00:00:00 Only Unassigned, JOSE 350.1.13.10 ity of [place] [facility] 4.2.7.2.686 Victor[place] as [phone] [address] Results Test Description Test Time Test Comments Results Result Comments Source POCT TEST 2023-04-01 21:52:00 Test Item Value Reference Range Interpretation Comme nts POCT PREG (test code = 1605) negative On board controls acceptable with C Line (test code = 3574) present POCT PREG LOT # (test code = 3575) [id number] POCT PREG TEST DATE (test code = 3576) 07-02-24 Lab Interpretation (test code = 75286-2) Normal [facility] [id number] 21:40:00 Test Item Value Reference Range Interpretation Comments POCT PREG (test code = 1605) negative On board controls acceptable with present C Line (test code = 3574) POCT PREG LOT # (test code = 3575) [id number] POCT PREG TEST DATE (test 04/24/2024 code = 3576) Lab Interpretation (test code = Normal 98875-4) [facility] [id number] 16:03:00 Test Item Value Reference Range Interpretation Comments POCT PREG (test code = 1605) NEGATIVE On board controls acceptable with PRESENT C Line (test code = 3574) POCT PREG LOT # (test code = 3575) [id number] POCT PREG TEST DATE (test 11/24/22 code = 3576) Lab Interpretation (test code = Normal 38141-9) [facility] URINALYSIS W/O SPECIFIC [id number] 21:06:00 Test Item Value Reference Range Interpretation Comments POCT PH U (test code = 3254) 5 mg/dl 5-8 POCT U LEUK EST (test code = neg Negative - Negative 3263) POCT U NIT (test code = 3262) neg Negative - Negative POCT U PROT (test code = 3259) neg Negative - Negative POCT U GLU (test code = 3256) neg Negative - Negative POCT U KETONE (test code = 3258) small Negative - Negative POCT U BLD (test code = 3257) trace Negative - Negative [facility] URINALYSIS W/O SPECIFIC [id number] 21:06:00 Test Item Value Reference Range Interpretation Comments POCT PH U (test code = 3254) 5 mg/dl 5-8 POCT U LEUK EST (test code = neg Negative - Negative 3263) POCT U NIT (test code = 3262) neg Negative - Negative POCT U PROT (test code = 3259) neg Negative - Negative POCT U GLU (test code = 3256) neg Negative - Negative POCT U KETONE (test code = 3258) small Negative - Negative POCT U BLD (test code = 3257) trace Negative - Negative [place] [facility] URINALYSIS W/O SPECIFIC [id number] 21:06:00 Test Item Value Reference Range Interpretation Comments POCT PH U (test code = 3254) 5 mg/dl 5-8 POCT U LEUK EST (test code = neg Negative - Negative 3263) POCT U NIT (test code = 3262) neg Negative - Negative POCT U PROT (test code = 3259) neg Negative - Negative POCT U GLU (test code = 3256) neg Negative - Negative POCT U KETONE (test code = 3258) small Negative - Negative POCT U BLD (test code = 3257) trace Negative - Negative [facility] SPECIFIC [id number] 18:25:00 Test Item Value Reference Range Interpretation Comments POCT PH U (test code = 3254) 7 mg/dl 5-8 POCT U LEUK EST (test code = Trace Negative - Negative 3263) POCT U NIT (test code = 3262) Neg Negative - Negative POCT U PROT (test code = 3259) Trace Negative - Negative POCT U GLU (test code = 3256) Neg Negative - Negative POCT U KETONE (test code = 3258) None Negative - Negative POCT U BLD (test code = 3257) Trace Negative - Negative [facility] with [id number] 19:27:43 Test Item Value Reference Range Interpretation Comments WBC (test code = See_Comment [Automated 0004-2) message] The sy stem which generated this result transmitted reference range : 4.30 - 11.10 10*3/?L. The reference range was not used to interpret this result as normal/abnormal . RBC (test code = See_Comment L [Automated 444-8) message] The sy stem which generated this result transmitted reference range : 3.93 - 5.25 10*6/?L. The reference range was not used to interpret this result as normal/abnormal . HGB (test code = 11.7 g/dL 11.6-15.0 718-7) HCT (test code = 36.4 % 35.7-45.2 4544-3) MCV (test code = 93.1 fL 80.6-95.5 787-2) MCH (test code = 29.9 pg 25.9-32.8 785-6) MCHC (test code = 32.1 g/dL 31.6-35.1 786-4) RDW-SD (test code = 42.3 fL 39.0-49.9 55681-0) RDW-CV (test code = 12.3 % 12.0-15.5 788-0) PLT (test code = See_Comment [Automated 777-3) message] The sy stem which generated this result transmitted reference range : 166 - 358 10*3/ ?L. The reference r david was not used to interpret this result as normal/abnormal . MPV (test code = 9.3 fL 9.5-12.9 L 96293-8) NRBC/100 WBC (test See_Comment [Automat ed code = 4127301083) message] The system which generated this result transmitted reference range : 0.0 - 10.0 /100 WBCs. The refer ence range was not u sed to interpret th is result as normal/abnormal . NRBC x10^3 (test code <0.01 See_Comment [Auto mated = 3575843536) message] The s ystem which generated this result transmitted reference range : 10*3/?L. The reference range was not used to interpret this result as normal/abnormal . GRAN MAT (NEUT) % 65.5 % (test code = 770-8) IMM GRAN % (test code 0.40 % = 9496182777) LYMPH % (test code = 25.9 % 736-9) MONO % (test code = 6.3 % 5905-5) EOS % (test code = 1.4 % 713-8) BASO % (test code = 0.5 % 706-2) GRAN MAT x10^3(ANC) 3.74 10*3/uL 1.88-7.09 (test code = 7227674419) IMM GRAN x10^3 (test <0.03 0.00-0.06 code = 7880484069) LYMPH x10^3 (test code 1.48 10*3/uL 1.32-3.29 = 731-0) MONO x10^3 (test code 0.36 10*3/uL 0.33-0.92 = 742-7) EOS x10^3 (test code = 0.08 10*3/uL 0.03-0.39 711-2) BASO x10^3 (test code 0.03 10*3/uL 0.01-0.07 = 704-7) Lab Interpretation Abnormal (test code = 18007-0) [facility] HospitalUrinalysis2021-03-30 19:05:43 Test Item Value Reference Range Interpretation Comments APPEARANCE (test code = Clear Clear 2248826214) COLOR (test code = Yellow Yellow 0243744090) PH (test code = 4.8-8.0 2496585574) SP GRAVITY (test code = 1.003-1.030 9230510093) GLU U QUAL (test code = Normal Normal 9924981121) BLOOD (test code = 3+ Negative A 6587745548) KETONES (test code = Negative Negative 5428758312) PROTEIN (test code = Negative Negative 2887-8) UROBILIN (test code = Normal Normal 6913127365) BILIRUBIN (test code = Negative Negative 2829787425) NITRITE (test code = Negative Negative 1839786618) LEUK ELIZA (test code = Negative Negative 6900025821) RBC/HPF (test code = See_Comment H [Autom ated message] 2151874055) The system [employer] generated this result transmitted ref erence range: 0 - 3 HP F. The reference range was not used to int erpret this result as normal/abnormal . WBC/HPF (test code = See_Comment [Autom ated message] 7494385063) The system [employer] generated this result transmitted ref erence range: 0 - 5 HP F. The reference range was not used to int erpret this result as normal/abnormal . BACTERIA (test code = Negative Negative 7361737047) AMORPHOUS (test code = Rare Rare HPF 6394145779) SQ EPITH (test code = <1 HPF 7846372472) Lab Interpretation (test Abnormal code = 37519-5) [facility] [id number] 18:26:00 Test Item Value Reference Range Interpretation Comments POCT PREG (test code = 1605) negative On board controls acceptable with present C Line (test code = 3574) POCT PREG LOT # (test code = 3575) [id number] POCT PREG TEST DATE (test 2022-10-24 code = 3576) Lab Interpretation (test code = Normal 23643-3) [facility] HospitalCT ABDOMEN PELVIS W [id number] 15:55:40CT Abdomen and Pelvis with intravenous contrast. CLINICAL HISTORY: Abdominal abscess/infection suspected. DOSE: Up-to-date CT equipment and radiation dose reduction techniques wereemployed. CTDIvol: 6.37 mGy. DLP: 333 mGy-cm. TECHNIQUE : Contiguous axial imaging from the level of the lung basesthroughthe pubic symphysis were performed after the uncomplicatedadministration of Omnipaque contrast material. ?Coronal and sagittalreconstructions were obtained. Auto mA and/or iterative reconstruction wereused to reduce radiation dose. FINDINGS: ? Lower lungs: Clear. No pleural effusion or pericardial effusion. Liver, Gallbladder and Spleen: Liver measures approximately 17.2 cm inlength and spleen is 11.9 x 4.6 cm. No focal lesions visualized in theliver or in the spleen. No calcified gallstones. Biliary ducts and thepancreatic duct appear normal. Peritoneum: Small amount of free air is seen surrounding thececum/ascending colon and in the left side of the anterior lower pelvis, inthe left lateral lower suprapubic abdominal wall, likely postsurgicalchanges. Pancreas and Adrenals: ?Unremarkable pancreas and adrenal glands. Kidneys and Ureters: ?No visible calculi in the renal collecting systems. No hydroureter or hydronephrosis. Vessels: Normal. Hepatic/portal venous systems and renal veins are patent. Retroperitoneum: No abnormal fluid or lymphadenopathy. Bowel: No acute findings. Bladder and Reproductive Organs: Uterus is enlarged with distended uterinecavity due to retained the fluid/blood and thickened endometrium fromrecent / section. Small amount of fluid in the nxb-st-wdvdtldv. 19 mm cyst is seen in the left ovary. No gross pathology in theunopacified urinary bladder. Bones: Unremarkable. Soft tissues: Irregular shaped approximately 6 x 3.7 cm size fluidcollection is seenin the left lower pelvis behind the rectus sheath whichcould be postoperative hematoma without any overt CT signs of infection. CONCLUSION:1. Postoperative changes of recent section. An irregular shapedapproximately 6 x 3.7 cm sized fluid collection seen in the anterior leftside of the pelvisunderneath the rectus muscle which could bepostoperative hematoma without any overt CT signs of infec tion.2. Enlarged uterus with distended uterine cavity due to retainedblood/secretions and thickened endometrium. Small amount of fluid in thkpxk-te-rql.3. Air bubbles are seen in the left side of the pelvis, left and to theabdominal wall and adjacent to ascending colon, consistent withpostoperative changes. [facility], Radiant Results Inft User - 02/02/2021 9:56 AM CSTCT Abdomen and Pelvis with intravenouscontrast.CLINICAL HISTORY: Abdominal abscess/infection suspected.DOSE: Up-to-date CT equipment and radiation dose reduction techniques wereemployed. CTDIvol: 6.37 mGy. DLP: 333 mGy-cm.TECHNIQUE : Contiguous axial imaging from the level of the lung basesthrough the pubic symphysis were performed after the uncomplicatedadministration of Omnipaque contrast material. Coronal and sagittalreconstructions were obtained. Auto mA and/or iterative reconstruction wereused to reduce radiation dose.FINDINGS: Lowe r lungs: Clear. No pleural effusion or pericardial effusion.Liver, Gallbladder and Spleen: Liver measures approximately 17.2 cm inlength and spleen is 11.9 x 4.6 cm. No focal lesions visualized in theliver or in the spleen. No calcified gallstones. Biliary ducts and thepancreatic duct appear normal.Peritoneum: Small amount of free air is seen surrounding thececum/ascending colon and in the left side of the anterior lower pelvis, inthe left lateral lower suprapubic abdominal wall, likely postsurgicalchanges.Pancreas and Adrenals: Unremarkable pancreas and adrenal glands.Kidneys and Ureters: No visible calculi in the renal collecting systems. No hydroureter or hydronephrosis. Vessels: Normal. Hepatic /portal venous systems and renal veins are patent.Retroperitoneum: No abnormal fluid or lymphadenopathy.Bowel: No acute findings.Bladder and Reproductive Organs: Uterus is enlarged with distended uterinecavity due to retained the fluid/blood and thickened endometrium fromrecent / section. Small amount of fluid in the krd-kj-hiptnoff. 19 mm cyst is seen in the left ovary. No gross pathology in theunopacified urinary bladder.Bones: Unremarkable.Soft tissues: Irregular shaped approximately 6 x 3.7 cm size fluidcollection is seen in the left lower pelvis behind the rectus sheath whichcould be postoperative hematoma without any overt CT signs of infection.CONCLUSION:1. Postoperative changes of recent section. An irregular shapedapproximately 6 x 3.7 cm sized fluid collection seen in the anterior leftside of the pelvis underneath the rectus muscle which could bepostoperative hematoma without any overt CT signs of infection.2. Enlarged uterus with distended uterine cavity dueto retainedblood/secretions and thickened endometrium. Small amount of fluid in muygif-lj-atm.3. Airbubbles are seen in the left side of the pelvis, left and to theabdominal wall and adjacent to ascending colon, consistent withpostoperative changes.[facility]. METABOLIC PANEL (65293)2021-02-02 15:07:40 Test Item Value Reference Range Interpretation Comments NA (test code = 139 mmol/L 135-145 7611247268) K (test code = 4.1 mmol/L 3.5-5.0 3563493507) CL (test code = 106 mmol/L 98-108 9004614398) CO2 TOTAL (test code = 24 mmol/L 23-31 0420292959) AGAP (test code = 2-16 8602436532) BUN (test code = 11 mg/dL 7-23 1697398350) GLUCOSE (test code = 84 mg/dL 70-110 7804432484) CREATININE (test code 0.53 mg/dL 0.50-1.04 = 4234338666) TOTAL BILI (test code 0.6 mg/dL 0.1-1.1 = 9261200610) CALCIUM (test code = 9.0 mg/dL 8.6-10.6 0205723423) T PROTEIN (test code = 7.5 g/dL 6.3-8.2 4463465486) ALBUMIN (test code = 4.2 g/dL 3.5-5.0 5261756849) ALK PHOS (test code = 82 U/L 34-122 2818225575) ALTv (test code = 7 U/L 5-35 1742-6) AST(SGOT) (test code = 22 U/L 13-40 1021962042) eGFR Calculation mL/min/1.73m2 (Non-) (test code = 9392936507) eGFR Calculation mL/min/1.73m2 () (test code = 3182601366) CHARANJIT (test code = CHARANJIT) Association of Glomerular Filtration Rate (GFR) and Staging of Kidney Disease* + -+ + ---+| GFR (mL/min/1.73 m2) ?| With Kidney Damage ?| ?Without Kidney Damage+ -------+ ------+ ---------+| ?>90 ?| ?Stage one ?| ? Normal ?+ --+ -+ ----+| ?60-89 ?| ?Stage two ?| ? Decreased GFR ? + -+ + ---+| ?30-59 ?| ?Stage three ?| ? Stage three ? + -+ + ---+| ?15-29 ?| ?Stage four ? | ? Stage four ?+ --+ -+ ----+| ?<15 (or dialysis) ? ?| ?Stage five ? | ? Stage five ?+ --+ -+ ----+ *Each stage assumes the associated GFR level has been in effect for at least three months. ?Stages 1 to 5, with or without kidney disease, indicate chronic kidney disease. Notes: Determination of stages one and two (with eGFR >59mL/min/1.73 m2) requires estimation of kidney damage for at least three months as defined by structural or functional abnormalities of the kidney, manifested by either:Pathological abnormalities or Markers of kidney damage (including abnormalities in the composition of the blood or urine or abnormalities in imaging tests). [facility] 14:51:43 Test Item Value Reference Range Interpretation Comments APPEARANCE (test code = Hazy Clear A 6888126461) COLOR (test code = Red Yellow A 4425098509) PH (test code = 4.8-8.0 6237901098) SP GRAVITY (test code = 1.003-1.030 5802091353) GLU U QUAL (test code = Normal Normal 1420290458) BLOOD (test code = 3+ Negative A 5155901802) KETONES (test code = 20 mg/dL Negative A 5740064806) PROTEIN (test code = 100 mg/dL Negative A 2887-8) UROBILIN (test code = Normal Normal 0568887035) BILIRUBIN (test code = Negative Negative 5776307155) NITRITE (test code = Negative Negative 1791182921) LEUK ELIZA (test code = 500/uL Negative A 8661114315) RBC/HPF (test code = >182 See_Comment H [Autom ated message] 7307765942) The system [employer] generated this result transmit radha reference range : 0 - 3 HPF. The refe rence range was not u sed to interpret th is result as normal/abnormal . WBC/HPF (test code = >182 See_Comment H [Autom ated message] 4975578648) The system [employer] generated this result transmit radha reference range : 0 - 5 HPF. The refe rence range was not u sed to interpret th is result as normal/abnormal . BACTERIA (test code = Moderate Negative A 9171328882) MUCOUS (test code = Slight Negative LPF A 0456319612) SQ EPITH (test code = HPF 9440258870) YEAST BUD (test code = See_Comment H [Aut omated message] 4585534629) The system [employer] generated this result transmit radha reference range : <=1 HPF. The refere nce range was not u sed to interpret th is result as normal/abnormal . Lab Interpretation (test Abnormal code = 44670-0) [facility] WITH [id number] 14:44:33 Test Item Value Reference Range Interpretation Comments WBC (test code = See_Comment [Automated 6690-2) message] The sy stem which generated this result transmitted reference range : 4.30 - 11.10 10*3/?L. The reference range was not used to interpret this result as normal/abnormal . RBC (test code = See_Comment L [Automated 789-8) message] The sy stem which generated this result transmitted reference range : 3.93 - 5.25 10*6/?L. The reference range was not used to interpret this result as normal/abnormal . HGB (test code = 9.5 g/dL 11.6-15.0 L 718-7) HCT (test code = 28.3 % 35.7-45.2 L 4544-3) MCV (test code = 94.3 fL 80.6-95.5 787-2) MCH (test code = 31.7 pg 25.9-32.8 785-6) MCHC (test code = 33.6 g/dL 31.6-35.1 786-4) RDW-SD (test code = 42.5 fL 39.0-49.9 66745-4) RDW-CV (test code = 12.3 % 12.0-15.5 788-0) PLT (test code = See_Comment [Automated 777-3) message] The sy stem which generated this result transmitted reference range : 166 - 358 10*3/ ?L. The reference r david was not used to interpret this result as normal/abnormal . MPV (test code = 8.7 fL 9.5-12.9 L 76778-7) NRBC/100 WBC (test See_Comment [Automat ed code = 2260066706) message] The system which generated this result transmitted reference range : 0.0 - 10.0 /100 WBCs. The refer ence range was not u sed to interpret th is result as normal/abnormal . NRBC x10^3 (test code <0.01 See_Comment [Auto mated = 1340504445) message] The s ystem which generated this result transmitted reference range : 10*3/?L. The reference range was not used to interpret this result as normal/abnormal . GRAN MAT (NEUT) % 77.3 % (test code = 770-8) IMM GRAN % (test code 0.70 % = 6195766244) LYMPH % (test code = 15.9 % 736-9) MONO % (test code = 5.3 % 5905-5) EOS % (test code = 0.4 % 713-8) BASO % (test code = 0.4 % 706-2) GRAN MAT x10^3(ANC) 7.08 10*3/uL 1.88-7.09 (test code = 6614109071) IMM GRAN x10^3 (test 0.06 10*3/uL 0.00-0.06 code = 1864755158) LYMPH x10^3 (test code 1.46 10*3/uL 1.32-3.29 = 731-0) MONO x10^3 (test code 0.49 10*3/uL 0.33-0.92 = 742-7) EOS x10^3 (test code = 0.04 10*3/uL 0.03-0.39 711-2) BASO x10^3 (test code 0.04 10*3/uL 0.01-0.07 = 704-7) Lab Interpretation Abnormal (test code = 60193-1) [facility] HospitalFETAL NON-STRESS [id number] 01:55:09GA: 28w5d Baseline: 140 bpmVariability: ModerateAccels: PresentDecels: NoneToco: Quiescent Interpretation: Appropriate for gestational age Bridget Khan MD [facility] HospitalFETAL NON-STRESS [id number] 14:35:53GA: 28w4d Baseline: 140 bpmVariability: ModerateAccels: PresentDecels: NoneToco: Quiescent Interpretation: Appropriate for gestational age Bridget Khan MD [facility] HospitalLAB ONLY COVID [id number] 04:04:00COVID DMT InterpretationInterpretation/Recommendations: Molecular NAAT Tests for Active Infection with the SARS-CoV-2 Virus: The patient has currently tested negative twice consecutively for the SARS-CoV-2 virus that causes COVID- 19 illness, subsequent to an initial positive test. At this time, the patient is likely to have recovered from the infection, especially if symptoms are decreasing. In kakg-is-pmzzcnko illness, the patient may be considered no longer infectious when it has been after 10 days since symptom onset, the patient has been afebrile for 24 hours without the use of fever-reducing medications, AND other symptoms of COVID-19 are improving. However, in patients who have been severely ill with COVID-19 or are severely immunocompromised, isolation up to 20 days after symptom onset isrecommended. Asymptomatic patients are considered infectious for the first 10 days subsequent to theinitial positive test result. If the patient's symptoms - if any - are persistent/worsening, a repeat molecular NAAT test (PCR, Rapid ID Now, etc.) may be indicated. Tests for IgM and/or IgG Antibodiesto the SARS-CoV-2 Virus: ? Testing for IgM and IgG antibodies approximately 3 weeks after illness onset will likely indicate whether the patient has produced antibodies to the SARS-CoV-2 virus. However, some patients may take longer to develop detectable antibodies, while some patients who were infected with SARS-CoV-2 may never develop antibodies. While antibodies to SARS-CoV-2 may provide some degree of immunity, at this time the strength and duration of the antibody response is unknown. Interpretation Result Comments:These interpretation comments are based upon all COVID-19 testing the patient has had at [facility], including molecular NAAT testing (more commonly known as PCR testing and Rapid ID Now testing) and antibody testing. It does not take into account any testing that a patient has had outside of the [facility] medical record. [facility] LABORATORY SERVICESCOVID RfzclrrXUOI-OjE-2 NAAT (no units) ? ? Date ? Value ? 01/05/2021 ? Not Detected ? SARS-CoV-2 Rapid ID NOW (no units) ? ? Date ? Value ? 01/17/2021 ? Not Detected ? ? ? 01/05/2021 ? Positive (A) ? CoV-2 IgG (no units) ? ? Date ? Value ? 08/15/2020 ? Negative ? ? ? [facility] LABORATORY SERVICESMem[facility] HospitalFETAL HGB STAIN/KB [id number] 21:31:09 Test Item Value Reference Range Interpretation Comments HGB STAIN Negative Performed at [facility] (test code = 843) Laboratory Services - [facility] Blood Bank3 [facility] [address]Hpfk Free: [phone] A No. [id number] BLEED IN MLS See comment 0mLsPerfo rmed at [facility] (test code = 5045) [facility] Blood Bank[address] [facility] s [address]Vrhs Free: [phone] A No. [id number] RHIG REQUIRED? 1 Syringe Performed at [facility] (test code = 1747) [facility] Blood [facility] [facility] s [address]Bgxa Free: [phone] A No. [id number] [facility] HospitalRHO (D) IMMUNE [id number] 21:31:09 Test Item Value Reference Range Interpretation Comments RHIG CANDIDATE? (test Yes- see A Patien t is a code = 5055) comment candidate for RhIg- Patient i s Rh Negative and currently .Perfor me d at [facility] Laboratory [facility] Blood [address] [address]Nlqn Free: [phone] A No. [id number] Lab Interpretation Abnormal (test code = 44264-5) [facility] HospitalType and Screen - ONCE [id number] 21:23:13 Test Item Value Reference Range Interpretation Comments ABO & RH (test code A NEGATIVE Performe d at [facility] = 20) Laboratory [facility] Blood [facility] [place] [address] s [address]Efmp Free: [phone] A No. [id number] IAT (test code = Positive Performed a t [facility] 1185) [facility] Blood [facility]3 [address] [place] [address] s [address]Pbkv Free: [phone] A No. [id number] [facility] HospitalANTI-D R/O [id number] 21:23:13 Test Item Value Reference Range Interpretation Comments ANTIBODY (test Anti-D Probable RhIg admin istered on code = 683) RhIg 1Perfo rmed at [facility] Laborat ory [facility] Blood [address] [place], [place] [address]Yfxz Free: [phone] A No. [id number] [facility]>14 WEEKS US [id number] 19:10:21Transvaginal Ultrasound dated: 01/17/2021 Patient was identified by name and . POSITION: cephalic PLACENTA POSITION: anterior, no previa, 2.1 cm from cervix ADNEXA: not visualized CERVIX: normal COMMENTS: low-lying placenta resolved, 2.1 cm from cervix, no previaUnTexas [facility] AllianceType and Screen - ONCE [id number] 15:03:19 Test Item Value Reference Range Interpretation Comments ABO & RH (test code A Negative Performe d at [facility] = 20) Laboratory Serv [facility] Blood Bank[address] [place], [place] [address]Toll Free: [phone] A No. [id number] IAT (test code = Positive Performed a t [facility] 1185) Laboratory [facility] Blood [address] [place] [address]Azwr Free: [phone] A No. [id number] [facility] HospitalCOVID-19 (ID NOW RAPID TESTING)2021-01-17 14:59:00 Test Item Value Reference Range Interpretation Comments SARS-CoV-2 Rapid ID NOW Not Detected Not Detected (test code = 16726-9) CHARANJIT (test code = CHARANJIT) ID NOW COVID-19 Assay is an isothermal nucleic acid amplification test intended for the qualitative detection of nucleic acid from SARS-CoV-2 viral RNA in nasopharyngeal ([employer]) specimens. It is used under Emergency Use Authorization (EUA) by FDA. The limit of detection (LOD) of the assay is 125 Genome Equivalents/mL. A positive result is indicative of the presence of SARS-CoV-2 RNA. ?Clinical correlation with patient history and other diagnostic information is necessary to determine patient infection status. A negative (Not Detected) result does not preclude SARS-CoV-2 infection. In patients with clinical symptoms and other tests that are consistent with SARS-CoV-2 infection, negative results should be treated as presumptive negative and a new specimen should be tested with alternative PCR molecular test. Invalid: Please collect a new specimen for repeat patient testing if clinically indicated. Lab Interpretation Normal (test code = 45342-8) [facility] HospitalUS PELVIS > 14 [id number] 14:57:55HISTORY: Evaluate retroplacental hemorrhage. COMPARISON: Previous studies of 12/23/2020 and 01/05/2021. TECHNIQUE: Limited ultrasound of was performed for evaluation ofplacenta. FINDINGS: Placenta is located along the anterior wall and there is apersistent hypoechoic area along the lower anterior portion of the placentaconsistent with retroplacental hemorrhage which is approximately 5 x 1 cmin size, essentially unchanged when compared with previous studies. There is no placenta previa. However, there is a new irregular shapedhypoechoic abnormality in the lower placenta just above the cervix, measuring approximately 21 x 12 mm and appears to be a new site ofintraplacental hemorrhage when compared with previous studies. Single live intrauterine confirmed with heart rate of 153BPM. Amniotic fluid volume is approximately 8.85 cm. CONCLUSIONS:1. Stable retroplacental hemorrhagein the lower anterior portion of theplacenta placenta since the previous studies.2. A new intraplacental hemorrhage noted in the lower placenta, measuringapproximately 21 x 12 mm. [facility], [place] ResultsInft User - 01/17/2021 8:59 AM CSTHISTORY: Evaluate retroplacental hemorrhage.COMPARISON: Previous st udies of 12/23/2020 and 01/05/2021.TECHNIQUE: Limited ultrasound of was performed for evaluation ofplacenta.FINDINGS: Placenta is located along the anterior wall and there is apersistent hypoechoic area along the lower anterior portion of the placentaconsistent with retroplacental hemorrhage which is approximately 5 x 1 cmin size, essentially unchanged when compared with previous studies.There is no placenta previa. However, there is a new irregular shapedhypoechoic abnormality in the lower placenta just above the cervix,measuring approximately 21 x 12 mm and appears to be a new site ofintra placental hemorrhage when compared with previous studies.Single live intrauterine confirmed with heart rate of 153BPM. Amniotic fluid volume is approximately 8.85 cm.CONCLUSIONS:1. Stable retroplacental hemorrhage in the lower anterior portion of theplacenta placenta since the previous studies.2. A new intraplacental hemorrhage noted in the lower placenta, measuringapproximately 21 x 12 mm.[facility] WITH [id number] 14:24:00 Test Item Value Reference Range Interpretation Comments WBC (test code = See_Comment H [Automated 6690-2) message] The system which generated this result transmit radha reference range : 4.30 - 11.10 10*3/?L. The reference range was not used to interpret this result as normal/abnormal . RBC (test code = See_Comment L [Automated 789-8) message] The system which generated this result transmit radha reference range : 3.93 - 5.25 10*6/?L. The reference range was not used to interpret this result as normal/abnormal . HGB (test code = 11.7 g/dL 11.6-15 718-7) HCT (test code = 34.8 % 35.7-45.2 L 4544-3) MCV (test code = 93.8 fL 80.6-95.5 787-2) MCH (test code = 31.5 pg 25.9-32.8 785-6) MCHC (test code = 33.6 g/dL 31.6-35.1 786-4) RDW-SD (test code = 41.7 fL 39-49.9 19377-7) RDW-CV (test code = 12.2 % 12-15.5 788-0) PLT (test code = See_Comment [Automated 777-3) message] The system which generated this result transmit radha reference range : 166 - 358 10*3/ ?L. The reference range was not u sed to interpret th is result as normal/abnormal . MPV (test code = 9.6 fL 9.5-12.9 45915-5) NRBC/100 WBC (test See_Comment [Automat ed code = [id number]) message] The system which generated this result transmit radha reference range : 0.0 - 10.0 /100 WBCs. The reference range was not used to interpret this result as normal/abnormal . NRBC x10^3 (test code <0.01 See_Comment [Auto mated = [id number]) message] The system which generated this result transmit radha reference range : 10*3/?L. The reference range was not used to interpret this result as normal/abnormal . GRAN MAT (NEUT) % 82.9 % (test code = 770-8) IMM GRAN % (test code 1.40 % = 2246351410) LYMPH % (test code = 11.4 % 736-9) MONO % (test code = 3.9 % 5905-5) EOS % (test code = 0.2 % 713-8) BASO % (test code = 0.2 % 706-2) GRAN MAT x10^3(ANC) 10.58 10*3/uL 1.88-7.09 H (test code = 2682247053) IMM GRAN x10^3 (test 0.18 10*3/uL 0-0.06 H code = 2822108235) LYMPH x10^3 (test code 1.46 10*3/uL 1.32-3.29 = 731-0) MONO x10^3 (test code 0.50 10*3/uL 0.33-0.92 = 742-7) EOS x10^3 (test code = 0.03 10*3/uL 0.03-0.39 711-2) BASO x10^3 (test code 0.03 10*3/uL 0.01-0.07 = 704-7) Lab Interpretation Abnormal (test code = 96201-1) [facility] SPECIFIC [id number] 19:27:00 Test Item Value Reference Range Interpretation Comments POCT U SP GRAV (test code = . 1.005-1.025 3255) POCT PH U (test code = 3254) 7 mg/dl 5-8 POCT U LEUK EST (test code = trace Negative - Negative 3263) POCT U NIT (test code = 3262) negative Negative - Negative POCT U PROT (test code = 3259) trace Negative - Negative POCT U GLU (test code = 3256) negative Negative - Negative POCT U KETONE (test code = 3258) negative Negative - Negative POCT U UROBILI (test code = . 0.2-1 3260) POCT U BILI (test code = 3261) . Negative - Negative POCT U BLD (test code = 3257) trace Negative - Negative POCT U COLOR (test code = 3266) POCT U APPEAR (test code = 3267) [facility] HospitalANTI-D R/O [id number] 08:55:26 Test Item Value Reference Range Interpretation Comments ANTIBODY (test Anti-D Probable RhIg recei marla code = 683) RhIg 01/05/21Performe d at [facility] Laboratory Services - [facility] Blood Ovam[address] [facility] s [address]Plep Free: [phone] A No. [id number] [facility] HospitalType and Screen - ONCE [id number] 08:41:07 Test Item Value Reference Range Interpretation Comments ABO & RH (test code A NEGATIVE Performe d at [facility] = 20) Laboratory Serv ices - [facility] Blood Bank3 [address] [facility] s [address]Bvgc Free: [phone] A No. [id number] IAT (test code = Positive RhIg receiv ed 1185) 1Perfor med at [facility] Laboratory Services - [facility] Blood Ban k[address] [facility] s [address]Egvi Free: [phone] A No. [id number] [facility] HospitalFETAL NON-STRESS [id number] 01:28:23NST PROGRESS NOTE01/08/2021 3:30 PM GA: 27w1d Baseline: 130Variability: ModerateAccels: +Decels: NoneToco: Quiescent Assessment: Reactive and reassuring, appropriate for gestational agePlan: Repeat as scheduled Margo Madera MD ?01/08/2021 ?3:30 PMUnTexas [facility] AllianceLAB ONLY COVID [id number] 00:30:00COVID DMT InterpretationInterpretation/Recommendations:Molecular NAAT Tests for Active Infection with the SARS-CoV-2 Virus:The patient has currently tested negative for the SARS-CoV-2 virus that causesCOVID-19 illness, subsequent to previously positive test results. At this time, the patient may be recovering from the infection, which is likely if any present symptoms are decreasing. In wtpv-gf-pdipvrve illness, the patient may be considered no longer infectious when it has been after 10 days sincesymptom onset, the patient has been afebrile for 24 hours without the use of fever-reducing medications, AND other symptoms of COVID-19 are improving. However, in patients who have been severely ill with COVID-19 or are severely immunocompromised, isolation up to 20 days after symptom onset is recommended. Asymptomatic patients are considered infectious for the first 10 days subsequent to the initialpositive test result. If the patient's symptoms - if any - are persistent/worsening, a repeat molecular NAAT test (PCR, Rapid ID Now, etc.) may be indicated. Tests for IgM and/or IgG Antibodies to the SARS-CoV-2 Virus:Testing for IgM and IgG antibodies approximately 3 weeks after illness onset will likely indicate whether the patient has produced antibodies to the SARS-CoV-2 virus. However, some patients may take longer to develop detectable antibodies, while some patients who were infected with SARS-CoV-2 may never develop antibodies. While antibodies to SARS-CoV-2 may provide some degree of immunity, at this time the strength and duration of the antibody response is unknown. Interpretation Result Comments:These interpretation comments are based upon all COVID-19 testing the patient has had at [facility], including molecular NAAT testing (more commonly known as PCR testing and Rapid ID Now testing) and antibody testing. It doesnot take into account any testing that a patient has had outside of the [facility] medical record. [facility] LABORATORY SERVICESCOVID IrudeieBVSM-WkP-2 NAAT (no units) ? ? Date ? Value ? 01/05/2021 ? Not Detected ? SARS-CoV-2 Rapid ID NOW (no units) ? ? Date ? Value ? 01/05/2021 ? Positive (A) ? CoV-2 IgG (no units) ? ? Date ? Value ? 08/15/2020 ? Negative ? ? ? [facility] LABORATORY SERVICESUnTexas Health [facility] Medical Hospital AllianceGC & CHLAMYDIA AMPLIFIED [id number] 08:00:00 Test Item Value Reference Range Interpretation Comments C. trachomatis Nucleic Negative Negative Acid (test code = 16092-1) N. gonorrhoeae Nucleic Negative Negative Acid (test code = 86309-6) CHARANJIT (test code = CHARANJIT) Reliable results are dependent on adequate specimen collection. ? A positive result obtained from a patient after therapeutic treatment cannot be interpreted as indicating the presence of viable organisms. ?For patients on whom a false positive result may have adverse psychosocial impact, retesting is advised. Indeterminate: Unable to generate a valid test result on this specimen. ?Please submit a new specimen for repeat testing if clinically indicated. Chlamydia trachomatis/Neisseria gonorrhoeae nucleic acid amplification testing (NAAT) has not been validated for medico-legal specimens (sexual abuse in willa-pubertal and pre-pubertal children, sexual assault, and legal cases). ?Culture for Chlamydia trachomatis and/or Neisseria gonorrhoeae from clinically appropriate sites is the method of choice in these cases. ? Results from this testing should be interpreted in conjunction with other laboratory and clinical data available to the clinician. Lab Interpretation Normal (test code = 07635-1) [facility] HospitalGROUP B STREPTOCOCCUS BY [id number] 17:27:00 Test Item Value Reference Range Interpretation Comments Group B Streptococcus by PCR (test Positive Negative A code = 67781-8) Lab Interpretation (test code = Abnormal 58092-8) [facility] HospitalCORONAVIRUS COVID-19 [id number] 03:09:00 Test Item Value Reference Range Interpretation Comments SARS-CoV-2 NAAT (test Not Detected Not Detected code = 57693-7) CHARANJIT (test code = CHARANJIT) ProPerforma Aptima SARS-CoV-2 Assay is a nucleic acid amplification test intended for the qualitative detection of RNA from SARS-CoV-2 from nasopharyngeal (REAL ESTATE AGENCY PRINCIPAL) specimens. ?It is used under Emergency Use Authorization (EUA) by FDA. A positive result is indicative of the presence of SARS-CoV-2 RNA. ?Clinical correlation with patient history and other diagnostic information is necessary to determine patient infection status. A negative (Not Detected) result does not preclude SARS-CoV-2 infection. ?Clinical correlation with patient history and other diagnostic information should be used in patient management decisions. Invalid: Unable to generate a valid test result on this specimen. ?Please submit a new specimen for repeat testing if clinically indicated. Lab Interpretation Normal (test code = 40700-2) [facility] HospitalRHO (D) IMMUNE [id number] 00:39:21 Test Item Value Reference Range Interpretation Comments RHIG CANDIDATE? (test Yes- see A Patien t is a code = 5055) comment candidate for RhIg- Patient i s Rh Negative and currently .Perfor me d at [facility] Laboratory Services - [facility] Blood [address] s [address]Yzbz Free: [phone] A No. [id number] Lab Interpretation Abnormal (test code = 24075-2) [facility] HospitalLAB ONLY COVID [id number] 23:36:00COVID DMT InterpretationInterpretation/Recommendations:Molecular NAAT Tests for Active Infection with the SARS-CoV-2 Virus:The current test result is positive for the SARS-CoV-2 virus that causes COVID-19 illness. In fhzk-bo-zssjdswz illness, the patient may be considered no longer infectious when it has been after 10 days since symptom onset, the patient has been afebrile for 24 hours without the use of fever-reducing medications, AND other symptoms of COVID-19 are improving. However, in patients who have been severely ill with COVID-19 or are severely immunocompromised, isolation up to 20 days aft er symptom onset is recommended. Asymptomatic patients are considered infectious for the first 10 days subsequent to the initial positive test result. From the onset of symptoms, if any, this result islikely to remain positive up to 2-4 weeks. Tests for IgM and/or IgG Antibodies to the SARS-CoV-2 Virus: Testing for IgM and IgG antibodies approximately 3 weeks after illness onset will likely indicatewhether the patient has produced antibodies to the SARS-CoV-2 virus. However, some patients may takelonger to develop detectable antibodies, while some patients who were infected with SARS-CoV-2 may never develop antibodies. While antibodies to SARS-CoV-2 may provide some degree of immunity, at this time the strength and duration of the antibody response is unknown. Interpretation Result Comments:These interpretation comments are based upon all COVID-19 testing the patient has had at [facility], including molecular NAAT testing (more commonly known as PCR testing and Rapid ID Now testing) and antibody testing. It does not take into account any testing that a patient has had outside of the [facility] medical record. [facility] LABORATORY SERVICESCOVID [id number]-8 Rapid ID NOW (no units) ? ? Date ? Value ? 01/05/2021 ? Positive (A) ? CoV-2 IgG (no units) ? ? Date ? Value ? 08/15/2020 ? Negative ? ? ? [facility] LABORATORY SERVICESMem[facility] HospitalANTI-D R/O [id number] 22:58:08 Test Item Value Reference Range Interpretation Comments ANTIBODY (test Anti-D Probable Performed at [facility] code = 683) RhIg Laboratory [facility] Blood Ban k[address] [facility] s [address]Drre Free: [phone] A No. [id number] [facility] HospitalType and Screen - ONCE [id number] 22:54:27 Test Item Value Reference Range Interpretation Comments ABO & RH (test code A NEGATIVE Performe d at [facility] = 20) Laboratory [facility] Blood Bank[address] [facility] s [address]Khlp Free: [phone] A No. [id number] IAT (test code = Positive Performed a t [facility] 1185) Laboratory [facility] Blood Bank[address] [facility] s [address]Ynkl Free: [phone] A No. [id number] [facility] HospitalFETAL HGB STAIN/KB [id number] 21:24:48 Test Item Value Reference Range Interpretation Comments HGB STAIN Negative Performed at [facility] (test code = 843) [facility] Blood Bank3 [facility] [address]Dfaj Free: [phone] A No. [id number] BLEED IN MLS See comment 0 mLsPerf ormed at [facility] (test code = 5045) Laborator y [facility] Blood Bank3 [facility] [address]Ckrb Free: [phone] A No. [id number] RHIG REQUIRED? 1 Syringe Patient is a candidate (test code = 1747) for RhIg- Patient is Rh Negative and cu rrently (26 wk s, 5 days)Performed at [facility] Laboratory Serv [facility] Blood Bank3 [facility] [address]Xdnp Free: [phone] A No. [id number] [facility] HospitalUS PELVIS > 14 WEEKS WITH [id number] 15:38:27HISTORY: Vaginal bleeding, history of low-lying placenta. TECHNIQUE: Routine OB sonography of the gravid uterus is completed. ? GA: 26 weeks and 5 days. FINDINGS: Single live IUP is confirmed. PRIMO SUREMENTS: ? RATIOS:BPD = 7.15 cm. = 28 weeks 5 day ? HC/AC =1.13(0.96-1.18 )HC ?= 25.46 cm. = 27 weeks 5 day ? FL/AC = 21 (20 ? 24 )AC ? = 22.61 cm. = 27 weeks 1 day ? FL/BPD= 66( 71 ? 87 )FL ?= 4.73 cm. =25 weeks 6 day COMPOSITE AGE = 27 weeks 3 day PLACENTA / AMNIOTIC FLUID: ?Amniotic fluid is normal. ?YAAKOV = 14.18 cm. ?Placenta is anterior Grade ? ?I ? No evidence of placenta previa. Previously described hypoechoic area alongthe deep surface of the lower placenta is consistent with smallretroplacental hemorrhage, essentially unch anged since the previous studyof 12/23/2020. ? FETUS:Normal four-chambered heart. ?FHR = 140 BPMThree vessels of umbilical cord identified. stomach seen on the left side.Normal kidneys and bladder.Normal head and spine. WEIGHT: 977 gm.BEATRIZ: 04/04/2021. CONCLUSION:1. Single live IUP of 27 weeks and 3 day ?in cephalic presentationconfirmed. Cervical length is approximately 4.9 cm with small amount offluid noted in the cervical canal.2. No placenta previa. Stable small retroplacental hemorrhage over thelower portion of the placenta.3. Some of the images showed very mild abdominal wall edema, slightly morepronounced than in the previous study. However, I do not see any othersonographic evidence of hydrops fetalis. ?DALILA PEÑA M.D., D.A.B.R. [facility], [facility] Results Inft User - 01/05/2021 9:39 AM CSTHISTORY: Vaginal bleeding, history of low- lying placenta.TECHNIQUE: Routine OB sonography of the gravid uterus is completed. GA: 26 weeks and 5 days.FINDINGS: Single live IUP is confirmed. MEASUREMENTS: RATIOS:BPD = 7.15 cm. = 28 weeks 5 day HC/AC = 1.13(0.96- 1.18 )HC = 25.46 cm. = 27 weeks 5 day FL/AC = 21 (20 ? 24 )AC = 22.61 cm. = 27 weeks1 day FL/BPD= 66( 71 ? 87 )FL = 4.73 cm. = 25 weeks 6 dayCOMPOSITE AGE = 27 weeks 3 dayPLACENTA / AMNIOTIC FLUID: Amniotic fluid is normal. YAAKOV = 14.18 cm. Placenta is anterior Grade I No evidence of placenta previa. Previously described hypoechoic area alongthe deep surface of the lower placenta is co nsistent with smallretroplacental hemorrhage, essentially unchanged since the previous studyof 12/23/2020. FETUS:Normal four-chambered heart. FHR = 140 BPMThree vessels of umbilical cord identified. stomach seen on the left side.Normal kidneys and bladder.Normal head and spine. WEIGHT: 977 gm.BEATRIZ: 04/04/2021.CONCLUSION:1. Single live IUP of 27 weeks and 3 day in cephalic presentationconfirmed. Cervical length is approximately 4.9 cm with small amount offluid noted in the cervical canal.2. No placenta previa. Stable small retroplacental hemorrhage over thelower portion of the placenta.3. Some of the images showed very mild abdominal wall edema, slightly morepronounced than in the previous study. However, I do not see any othersonographic evidence of hydrops fetalis. DALILA PEÑA M.D., D.A.B.R.[facility] CLC OR LCC ONLY - WET [id number] 14:56:00 Test Item Value Reference Range Interpretation Comments CLUE CELLS WET PREP (test code = None Seen None Seen HPF [id number]) BACTERIA WET PREP (test code = Few None Seen HPF A 8710423713) WBC WET PREP (test code = Few None Seen HPF A 7317878066) RBC WET PREP (test code = Few None Seen HPF A 5675674677) TRICHOMONAS WET PREP (test code = None Seen None Seen HPF 1595551083) YEAST WET PREP (test code = None Seen None Seen HPF 8224083044) Lab Interpretation (test code = Abnormal 03597-6) [facility] HospitalACTIVATED PARTIAL THRMPLAS [id number] 13:10:00 Test Item Value Reference Range Interpretation Comments APTT Patient (test See_Comment [Automat ed code = 3173-2) message] The system which generated this result transmitted reference range : 23 - 38 Seconds . The reference range was not used to interpr et this result as normal/abnormal . CHARANJIT (test code = CHARANJIT) The [facility] patient population mean normal value for aPTT is 30 seconds. Lab Interpretation Normal (test code = 46549-9) [facility] HospitalType and Screen - ONCE [id number] 12:55:02 Test Item Value Reference Range Interpretation Comments ABO & RH (test code A Negative Performe d at [facility] = 20) Laboratory Serv ices - [facility] Blood Bank[address] [place], [place] [address]Toll Free: [phone] A No. [id number] IAT (test code = Positive Performed a t [facility] 1185) Laboratory [facility] Blood Bank[address] [place] [address]Vzda Free: [phone] A No. [id number] [facility] HospitalPROTHROMBIN TIME / [id number] 12:37:00 Test Item Value Reference Range Interpretation Comments PROTIME PATIENT (test See_Comment L [Auto mated message] code = 5964-2) The system Compliance Control generated this result transmitted ref erence range: 12.0 - 1 4.7 Seconds. The reference range was not used to int erpret this result as normal/abnormal . INR (test code = 6301-6) Nor mal INR <1.1; Warfarin Therap eutic range 2.0 to 3. 0 or 2.5 to 3.5, dep ending upon the indica tions. Lab Interpretation (test Abnormal code = 20844-0) [facility] HospitalCOVID-19 (ID NOW RAPID TESTING)2021-01-05 12:28:00 Test Item Value Reference Range Interpretation Comments SARS-CoV-2 Rapid ID NOW Positive Not Detected A (test code = 53858-9) CHARANJIT (test code = CHARANJIT) ID NOW COVID-19 Assay is an isothermal nucleic acid amplification test intended for the qualitative detection of nucleic acid from SARS-CoV-2 viral RNA in nasopharyngeal (REAL ESTATE AGENCY PRINCIPAL) specimens. It is used under Emergency Use Authorization (EUA) by FDA. The limit of detection (LOD) of the assay is 125 Genome Equivalents/mL. A positive result is indicative of the presence of SARS-CoV-2 RNA. ?Clinical correlation with patient history and other diagnostic information is necessary to determine patient infection status. A negative (Not Detected) result does not preclude SARS-CoV-2 infection. In patients with clinical symptoms and other tests that are consistent with SARS-CoV-2 infection, negative results should be treated as presumptive negative and a new specimen should be tested with alternative PCR molecular test. Invalid: Please collect a new specimen for repeat patient testing if clinically indicated. Lab Interpretation Abnormal (test code = 81305-9) [facility] WITH [id number] 12:14:00 Test Item Value Reference Range Interpretation Comments WBC (test code = See_Comment [Automated 6690-2) message] The sy stem which generated this result transmitted reference range : 4.30 - 11.10 10*3/?L. The reference range was not used to interpret this result as normal/abnormal . RBC (test code = See_Comment L [Automated 789-8) message] The sy stem which generated this result transmitted reference range : 3.93 - 5.25 10*6/?L. The reference range was not used to interpret this result as normal/abnormal . HGB (test code = 11.1 g/dL 11.6-15 L 718-7) HCT (test code = 32.3 % 35.7-45.2 L 4544-3) MCV (test code = 92.8 fL 80.6-95.5 787-2) MCH (test code = 31.9 pg 25.9-32.8 785-6) MCHC (test code = 34.4 g/dL 31.6-35.1 786-4) RDW-SD (test code = 41.9 fL 39-49.9 39335-1) RDW-CV (test code = 12.4 % 12-15.5 788-0) PLT (test code = See_Comment [Automated 777-3) message] The sy stem which generated this result transmitted reference range : 166 - 358 10*3/ ?L. The reference r david was not used to interpret this result as normal/abnormal . MPV (test code = 9.8 fL 9.5-12.9 29092-0) NRBC/100 WBC (test See_Comment [Automat ed code = 5002330515) message] The system which generated this result transmitted reference range : 0.0 - 10.0 /100 WBCs. The refer ence range was not u sed to interpret th is result as normal/abnormal . NRBC x10^3 (test code <0.01 See_Comment [Auto mated = [id number]) message] The s ystem which generated this result transmitted reference range : 10*3/?L. The reference range was not used to interpret this result as normal/abnormal . GRAN MAT (NEUT) % 78.6 % (test code = 770-8) IMM GRAN % (test code 1.40 % = 5925951372) LYMPH % (test code = 13.7 % 736-9) MONO % (test code = 5.5 % 5905-5) EOS % (test code = 0.5 % 713-8) BASO % (test code = 0.3 % 706-2) GRAN MAT x10^3(ANC) 8.59 10*3/uL 1.88-7.09 H (test code = 3934750397) IMM GRAN x10^3 (test 0.15 10*3/uL 0-0.06 H code = 9513305111) LYMPH x10^3 (test code 1.50 10*3/uL 1.32-3.29 = 731-0) MONO x10^3 (test code 0.60 10*3/uL 0.33-0.92 = 742-7) EOS x10^3 (test code = 0.06 10*3/uL 0.03-0.39 711-2) BASO x10^3 (test code 0.03 10*3/uL 0.01-0.07 = 704-7) Lab Interpretation Abnormal (test code = 43830-6) [facility] URINALYSIS W SPECIFIC [id number] 15:29:00 Test Item Value Reference Range Interpretation Comments POCT U SP GRAV (test code = . 1.005-1.025 3255) POCT PH U (test code = 3254) 7 mg/dl 5-8 POCT U LEUK EST (test code = negaitve Negative - Negative 3263) POCT U NIT (test code = 3262) negative Negative - Negative POCT U PROT (test code = 3259) negaitive Negative - Negative POCT U GLU (test code = 3256) negative Negative - Negative POCT U KETONE (test code = negative Negative - Negative 3258) POCT U UROBILI (test code = . 0.2-1 3260) POCT U BILI (test code = 3261) . Negative - Negative POCT U BLD (test code = 3257) negative Negative - Negative POCT U COLOR (test code = 3266) POCT U APPEAR (test code = 3267) [facility] [id number] 15:29:00 Test Item Value Reference Range Interpretation Comments POCT U SP GRAV (test code = . 1.005-1.025 3255) POCT PH U (test code = 3254) 7 mg/dl 5-8 POCT U LEUK EST (test code = negaitve Negative - Negative 3263) POCT U NIT (test code = 3262) negative Negative - Negative POCT U PROT (test code = 3259) negaitive Negative - Negative POCT U GLU (test code = 3256) negative Negative - Negative POCT U KETONE (test code = negative Negative - Negative 3258) POCT U UROBILI (test code = . 0.2-1 3260) POCT U BILI (test code = 3261) . Negative - Negative POCT U BLD (test code = 3257) negative Negative - Negative POCT U COLOR (test code = 3266) POCT U APPEAR (test code = 3267) [facility] 14 [id number] 17:10:331. Single live intrauterine with size equals dates. Fetus appearsgrossly unremarkable. 2. Low-lying placenta. There is a hypoechoic region posterior to thelateral margin of the placenta whichcould be related to a smallretroplacental hematoma or even a small abruption in the appropriateinic al setting. Correlation with symptoms is recommended. No internalvascularity. Follow-up recommended.3. The cervix appears somewhat shortened measuring 2.7 cm. RL: 609 End of Report EXAM: US PELVIS > 14 WEEKS Ordering Physician: ?GARY ?FISH HISTORY: Vaginal bleeding. COMPARISON: none Permanently recorded sonographic images were stored in the PACs system. BEATRIZ: 04/08/2021 Transabdominal imaging was performed. FINDINGS:There is a single live intrauterine gestation in cephalic position with ananterior placenta. There is a low-lying placenta with placental tip roughly1.5 cm from the internal os. Subtle decreased echogenicity seen posteriorto the lateral tip of the placenta. No internal vascularity is present. Theplacenta appears otherwise normal.. Cervical length is 2.7 cm. ?There is anormal amount of amniotic fluid. ?YAAKOV measures 14.1 cm. heart rate is147 beats per minute. survey not performed as part of t hisexamination. Fetus is visualized appears grossly unremarkable. Normalthree- vessel cord and bladder. Kidneys, stomach,, spine, calvarium, andposterior fossa appear grossly unremarkable. Extremities as visualizedappear normal. ?The following biometric data were obtained: BPD ?26 weeks 0 daysHC ? ?25 weeks 4 daysAC ? ?25 weeks 3 daysFL ? ?24 weeks 3 daysEFW 7[address] Manda by dates: 24 weeks 6 daysAge by US: ? ? 25 weeks 3 days [facility], Radiant Results Inft User - 12/23/2020 11:11 AM CSTEXAM: US PELVIS > 14 WEEKSOrdering Physician: GARY GARCIA HISTORY: Vaginal bleeding.COMPARISON: nonePermanentlyrecorded sonographic images were stored in the PACs system. BEATRIZ: 04/08/2021Transabdominal imaging was performed. FINDINGS:There is a single live intrauterine gestation in cephalic position with ananterior placenta. There is a low-lying placenta with placental tip roughly1.5 cm from the internal os. Subtle decreased echogenicity seen posteriorto the lateral tip of the placenta. No internal vascularity is present. Theplacenta appears otherwise normal.. Cervical length is 2.7 cm. There is anormal amountof amniotic fluid. YAAKOV measures 14.1 cm. heart rate is147 beats per minute. survey not performed as part of thisexamination. Fetus is visualized appears grossly unremarkable. Normalthree-vessel cord and bladder. Kidneys, stomach,, spine, calvarium, andposterior fossa appear grossly unremark able. Extremities as visualizedappear normal. The following biometric data were obtained:BPD 26 weeks 0 daysHC 25 weeks 4 daysAC 25 weeks 3 daysFL 24 weeks 3 daysEFW 764 Manda by dates: 24 weeks 6 daysAge by US: 25 weeks 3 daysIMPRESSION1. Single live intrauterine with size equals dates. Fetus appearsgrossly unremarkable.2. Low-lying placenta. There is a hypoechoic region posterior to thelateral margin of the placenta which could be related to a smallretroplacental hematoma or even a small abruption in the appropriateclinical setting. Correlation with symptoms is recommended. No internalvascularity. Follow-up recommended.3. The cervix appears somewhat shortened measuring 2.7 cm.RL: 609Endof Report UnTexas [facility] AllianceRHO (D) IMMUNE [id number] 06:59:25 Test Item Value Reference Range Interpretation Comments RHIG CANDIDATE? (test Yes- see A Patien t is a code = 5055) comment candidate for RhIg- Patient i s Rh Negative and currently .Perfor me d at [facility] Laboratory Services - [facility] Blood [id number] [place], [place] [address]Toll Free: [phone] A No. [id number] Lab Interpretation Abnormal (test code = 71759-2) [facility] Screen - ONCE [id number] 06:43:16 Test Item Value Reference Range Interpretation Comments ABO & RH (test code A Negative Performe d at [facility] = 20) Laboratory Serv [facility] Blood Bank[address] [place], [place] [address]Toll Free: [phone] A No. [id number] IAT (test code = Negative Performed a t [facility] 1185) Laboratory Serv [facility] Blood Bank [address] [address]Toll Free: [phone] A No. [id number] [facility]CIFIC [id number] 16:57:00 Test Item Value Reference Range Interpretation Comments POCT U SP GRAV (test code = 3255) . 1.005-1.025 POCT PH U (test code = 3254) . 5-8 POCT U LEUK EST (test code = 3263) . Negative - Negative POCT U NIT (test code = 3262) . Negative - Negative POCT U PROT (test code = 3259) TRACE Negative - Negative POCT U GLU (test code = 3256) NEG Negative - Negative POCT U KETONE (test code = 3258) . Negative - Negative POCT U UROBILI (test code = 3260) . 0.2-1 POCT U BILI (test code = 3261) . Negative - Negative POCT U BLD (test code = 3257) . Negative - Negative POCT U COLOR (test code = 3266) POCT U APPEAR (test code = 3267) [facility] URINALYSIS W SPECIFIC [id number] 16:25:00 Test Item Value Reference Range Interpretation Comments POCT U SP GRAV (test code = 3255) . 1.005-1.025 POCT PH U (test code = 3254) . 5-8 POCT U LEUK EST (test code = 3263) . Negative - Negative POCT U NIT (test code = 3262) . Negative - Negative POCT U PROT (test code = 3259) trace Negative - Negative POCT U GLU (test code = 3256) neg Negative - Negative POCT U KETONE (test code = 3258) . Negative - Negative POCT U UROBILI (test code = 3260) . 0.2-1 POCT U BILI (test code = 3261) . Negative - Negative POCT U BLD (test code = 3257) . Negative - Negative POCT U COLOR (test code = 3266) POCT U APPEAR (test code = 3267) [facility] URINALYSIS W SPECIFIC [id number] 16:54:00 Test Item Value Reference Range Interpretation Comments POCT U SP GRAV (test code = 3255) . 1.005-1.025 POCT PH U (test code = 3254) . 5-8 POCT U LEUK EST (test code = 3263) . Negative - Negative POCT U NIT (test code = 3262) . Negative - Negative POCT U PROT (test code = 3259) trace Negative - Negative POCT U GLU (test code = 3256) neg Negative - Negative POCT U KETONE (test code = 3258) . Negative - Negative POCT U UROBILI (test code = 3260) . 0.2-1 POCT U BILI (test code = 3261) . Negative - Negative POCT U BLD (test code = 3257) . Negative - Negative POCT U COLOR (test code = 3266) POCT U APPEAR (test code = 3267) [facility] URINALYSIS W SPECIFIC [id number] 16:10:00 Test Item Value Reference Range Interpretation Comments POCT U SP GRAV (test code = 3255) . 1.005-1.025 POCT PH U (test code = 3254) . 5-8 POCT U LEUK EST (test code = 3263) . Negative - Negative POCT U NIT (test code = 3262) . Negative - Negative POCT U PROT (test code = 3259) trace Negative - Negative POCT U GLU (test code = 3256) neg Negative - Negative POCT U KETONE (test code = 3258) . Negative - Negative POCT U UROBILI (test code = 3260) . 0.2-1 POCT U BILI (test code = 3261) . Negative - Negative POCT U BLD (test code = 3257) . Negative - Negative POCT U COLOR (test code = 3266) POCT U APPEAR (test code = 3267) [facility] [id number] 15:18:00 Test Item Value Reference Range Interpretation Comments POCT PREG (test code = 1605) Positive On board controls acceptable with C Yes Line (test code = 3574) POCT PREG LOT # (test code = 3575) POCT PREG TEST DATE (test code = 3576) [facility] URINALYSIS W/O SPECIFIC [id number] 15:18:00 Test Item Value Reference Range Interpretation Comments POCT PH U (test code = 3254) 8 mg/dl 5-8 POCT U LEUK EST (test code = 2+ Negative - Negative 3263) POCT U NIT (test code = 3262) neg Negative - Negative POCT U PROT (test code = 3259) trace Negative - Negative POCT U GLU (test code = 3256) neg Negative - Negative POCT U KETONE (test code = 3258) 1+ Negative - Negative POCT U BLD (test code = 3257) neg Negative - Negative [facility]"
--- NOTE | 2023-10-22 02:19 | ER ---
Nurse's Notes [facility] Name: Louie Wise Age: 23 yrs Sex: Female : 2000 Arrival Date: 10/22/2023 Time: 00:37 Bed IW3 Private MD: Diagnosis: Allergy, unspecified Presentation: 10/22 01:10 Chief complaint: Patient states: "I FEEL LIKE MY THROAT IS TOO DRY TO SWALLOW. IT bp HAPPENS WITH MY ANXIETY. I FEEL BETTER AFTER TALKING ABOUT IT.". Coronavirus screen: At this time, the client does not indicate any symptoms associated with coronavirus-19. Ebola Screen: No symptoms or risks identified at this time. Initial Sepsis Screen: Does the patient meet any 2 criteria? No. Patient's initial sepsis screen is negative. Does the patient have a suspected source of infection? No. Patient's initial sepsis screen is negative. Risk Assessment: Do you want to hurt yourself or someone else? Patient reports no desire to harm self or others. Onset of symptoms is unknown. 01:10 Method Of Arrival: Ambulatory bp 01:10 Acuity: ROGER 5 bp Triage Assessment: 01:12 General: Appears in no apparent distress. Behavior is cooperative, appropriate for age, bp anxious. Pain: Denies pain. EENT: Throat is clear. Historical: - Allergies: 01:06 Sulfa (Sulfonamide Antibiotics); bp - Home Meds: 01:06 Wellbutrin Oral [Active]; sertraline oral [Active]; bp - PMHx: 01:06 Anxiety; bp - Immunization history:: Adult Immunizations up to date. - Social history:: Smoking status: Patient denies any tobacco usage or history of. Screenin:46 [facility] ED Fall Risk Assessment (Adult) History of falling in the last 3 months, bp including since admission. Abuse screen: Denies threats or abuse. Denies injuries from another. Nutritional screening: No deficits noted. Tuberculosis screening: No symptoms or risk factors identified. Assessment: 02:47 Respiratory: Airway is patent Respiratory effort is even, unlabored, Breath sounds are bp clear bilaterally. Vital Signs: 01:10 BP 125 / 85; Pulse 80; Resp 16; Temp 98; Pulse Ox 100% ; Weight 68.04 kg; Height 5 ft. bp 7 in. ; 01:10 Body Mass Index 23.49 (68.04 kg, 170.18 cm) bp ED Course: 00:46 Patient arrived in ED. gm2 00:57 Jeremiah Nguyễn PA is PHCP. cp 00:57 Nasim Stoll MD is Attending Physician. cp 01:06 Arm band placed on. bp 01:12 Triage completed. bp 02:46 Patient has correct armband on for positive identification. bp 02:46 No provider procedures requiring assistance completed. Patient did not have IV access bp during this emergency room visit. Administered Medications: 02:46 Not Given (Patient Refused): [id number] mg PO once bp 02:46 Not Given (Patient Refused): [id number] mg PO once; give if not bp Outcome: 02:18 Discharge ordered by . cp 02:46 Discharged to home ambulatory, with family, bp 02:46 Condition: stable 02:46 Discharge instructions given to patient, Instructed on discharge instructions, follow up and referral plans. medication usage, Demonstrated understanding of instructions, follow-up care, medications, Prescriptions given X 1, 02:47 Patient left the ED. bp Signatures: Jeremiah Nguyễn PA PA cp Peltier, Brian, RN RN Jennifer Prince gm2
--- NOTE | 2023-10-22 02:19 | EDPHYS ---
Physician Documentation [facility] Name: Louie Wise Age: 23 yrs Sex: Female : 2000 Arrival Date: 10/22/2023 Time: 00:37 Bed IW3 Private MD: ED Physician Nasim Stoll HPI: 10/22 01:15 This 23 yrs old Female presents to ER via Ambulatory with complaints of Swollen Glands, cp Sore Throat. 01:15 Patient is a 23-year-old female with past medical history significant for anxiety. She cp presents to the emergency department today with reported throat tightness difficulty swallowing. Patient denies pain and is concerned she may be having allergic reaction. Historical: - Allergies: 01:06 Sulfa (Sulfonamide Antibiotics); bp - Home Meds: 01:06 Wellbutrin Oral [Active]; sertraline oral [Active]; bp - PMHx: 01:06 Anxiety; bp - Immunization history:: Adult Immunizations up to date. - Social history:: Smoking status: Patient denies any tobacco usage or history of. ROS: 01:20 Constitutional: Negative for body aches, chills, fever, poor PO intake, cp 01:20 Eyes: Negative for injury, pain, redness, and discharge, cp 01:20 ENT: Positive for difficulty swallowing, Negative for drainage from ear(s), ear pain, sore throat, difficulty handling secretions, 01:20 Respiratory: Negative for cough, shortness of breath, wheezing, 01:20 Abdomen/GI: Negative for abdominal pain, vomiting, diarrhea, constipation, 01:20 Neuro: Negative for altered mental status, dizziness, headache, weakness, 01:20 All other systems are negative, Exam: 01:25 Constitutional: The patient appears in no acute distress, alert, awake, non-toxic, well cp developed, well nourished, anxious, 01:25 Head/Face: Normocephalic, atraumatic. cp 01:25 Eyes: Periorbital structures: appear normal, Conjunctiva: normal, no exudate, no injection, Sclera: no appreciated abnormality, Lids and lashes: appear normal, bilaterally, 01:25 ENT: External ear(s): are unremarkable, Nose: is normal, Mouth: Lips: moist, Oral mucosa: pink and intact, moist, Posterior pharynx: Airway: no evidence of obstruction, patent, swelling, is not appreciated, erythema, is not appreciated, 01:25 Neck: ROM/movement: is normal, is supple, without pain, no range of motions limitations, no meningismus, no nuchal rigidity, :25 Chest/axilla: Inspection: normal, Palpation: is normal, no crepitus, no tenderness, :25 Cardiovascular: Rate: normal, Rhythm: regular, :25 Respiratory: the patient does not display signs of respiratory distress, Respirations: normal, no use of accessory muscles, no retractions, labored breathing, is not present, Breath sounds: are clear throughout, no decreased breath sounds, no stridor, no wheezing, :25 Abdomen/GI: Exam negative for discomfort, distension, guarding, Inspection: abdomen appears normal, :25 Skin: no rash present. Vital Signs: 01:10 BP 125 / 85; Pulse 80; Resp 16; Temp 98; Pulse Ox 100% ; Weight 68.04 kg; Height 5 ft. bp 7 in. ; 01:10 Body Mass Index 23.49 (68.04 kg, 170.18 cm) bp MDM: 01:13 Patient medically screened. cp 02:17 Data reviewed: vital signs, nurses notes, and as a result, I will discharge patient. cp 02:17 Differential diagnosis: anxiety, allergic reaction. I considered the following cp discharge prescriptions or medication management in the emergency department Medications were administered in the Emergency Department. See MAR. Counseling: I had a detailed discussion with the patient and/or guardian regarding the historical points, exam findings, and any diagnostic results supporting the discharge/admit diagnosis, to return to the emergency department if symptoms worsen or persist or if there are any questions or concerns that arise at home. Response to treatment: the patient's symptoms have mildly improved after treatment, and as a result, I will discharge patient. Administered Medications: 02:46 Not Given (Patient Refused): [id number] mg PO once bp 02:46 Not Given (Patient Refused): [id number] mg PO once; give if not bp Disposition Summary: 10/22/23 02:18 Discharge Ordered Notes: Location: Home cp Problem: new cp Symptoms: have improved cp Condition: Stable cp Diagnosis - Allergy, unspecified cp Followup: cp - With: Private Physician - When: 2 - 3 days - Reason: Recheck today's complaints Discharge Instructions: - Discharge Summary Sheet cp - Allergies, Adult cp Forms: - Medication Reconciliation Form cp - Thank You Letter cp - Antibiotic Education cp - Prescription Opioid Use cp - Patient Portal Instructions cp - Leadership Thank You Letter cp Prescriptions: - Zyrtec 10 mg Oral Tablet - take 1 tablet ORAL route once daily As needed; 20 tablet; Refills: 0, Product cp Selection Permitted - Prednisone 20 mg Oral Tablet - take 2 tablets ORAL route once daily for 5 days; 10 tablet; Refills: 0, Product cp Selection Permitted Addendum: 10/23/2023 12:42 Co-signature as Attending Physician, Nasim Stoll MD I agree with the assessment s p4 and plan of care. I reviewed the patient's care provided by the Advanced Practice Provider and agree with the diagnosis and treatment plan. Signatures: Jeremiah Nguyễn PA PA cp Peltier, Brian, RN RN Nasim Fisher MD MD sp4
[2023-10-22 02:52] VITALS: BP 125/85; TEMP 98; O2SAT 100
[2023-10-22] MEDS ORDERED: predniSONE 20 MG TAB ONE (02:52)
[2023-10-22] MEDS ORDERED: DIPHENHYDRAMINE 25 MG TAB/CAP ONE (02:52)
== END 2023-10-22 02:47 | disposition home or self-care (01) ==
LOC: ER 00:37
DX: R13.10 Dysphagia, unspecified (principal); F41.9 Anxiety disorder, unspecified; Z88.2 Allergy status to sulfonamides
CPT/HCPCS: 99283; J7512